=== PATIENT | male | born 1965 | race Caucasian/White ===

== ENCOUNTER 2020-12-30 10:54 | Inpatient (IN) | payer OTHER, SELFPAY ==
[2020-12-30] VITALS (8 sets, daily range): BP systolic 121–148; BP diastolic 68–85; PULSE 70–74; RESP 13–17; TEMP 36.1–37; O2SAT 97–100; BMI 18.1; BMI 39.7
--- NOTE | 2020-12-30 11:25 | EKG12_ITS ---
Test Reason : GEN ILL Blood Pressure : / mmHG Vent. Rate : 065 BPM Atrial Rate : 065 BPM P-R Int : 196 ms QRS Dur : 106 ms QT Int : 420 ms P-R-T Axes : 026 -16 118 degrees QTc Int : 436 ms Normal sinus rhythm Voltage criteria for left ventricular hypertrophy Cannot rule out Septal infarct , age undetermined Inferior infarct , age undetermined ST & T wave abnormality, consider lateral ischemia Abnormal ECG Confirmed by CHRISTIANA HERNANDEZ, JULIOCESAR ([id number]), associate entertainment editor DREW ORTIZ ([id number]) on 01/01/2021 9:21:47 AM Referred By: QUIRINO Confirmed By:SHANDRA VILLEDA MD
--- NOTE | 2020-12-30 11:26 | EX.ED.DYSGE1 ---
HPI History of Present Illness Chief Complaint: Fatigue Informant: patient Onset/Context/Timing Onset: Weeks (1) Context: Gradual Onset Timing: Continuous Quality: Tired, fatigued Location: All over Current Severity: Moderate Maximum Severity: Moderate Worsened by: Nothing Relieved by: Nothing Associated Symptoms Associated Symptoms: Sweaty, cough Narrative Narrative: Patient has had cold symptoms and fatigue for about 1 week. He occasionally brings up a little bit of phlegm but nothing major and no blood. No dyspnea. Not really improving. He went to work yesterday and he was sweaty for no good reason although he checked his temperature and did not have a fever. It went away. Today it happened again, and he was sweaty in urgent care without a fever. He had no chest discomfort, presyncopal symptoms, palpitations, or any other symptoms with it. He was referred to the ER. He has no major medical problems and takes no prescriptions. He had Covid in July, states that he was fairly symptomatic with it but did not need to be hospitalized and did eventually recover. He has not been vaccinated yet. PFSH PFSH no medical history Allergy/AdvReac Type Severity Reaction Status Date / Time No Known Allergies Allergy Verified 12/30/20 10:57 no surgical history Social History Smoking Status: Never smoker ROS ROS ED Constitutional Constitutional ED: Reports as per HPI, malaise and sweats; Denies chills, fever(s) or headache(s) Eyes Eyes: Denies change in vision, diplopia or discharge from eye(s) ENT ENT ED: Denies discharge from eye(s), ear discharge, ear pain, epistaxis, facial pain, headache(s), hoarseness, nasal congestion, nasal discharge, rhinorrhea or sore throat Cardiovascular Cardiovascular: Denies chest pain or palpitations Respiratory/Chest Respiratory/Chest: Reports as per HPI and cough; Denies dyspnea Gastrointestinal Gastrointestinal: Denies abdominal pain, diarrhea, nausea or vomiting Genitourinary Genitourinary ED: Reports other Details: Trouble starting a good stream of urine, chronic and not new ; Denies dysuria or hematuria Musculoskeletal Musculoskeletal: Denies back pain or neck pain Integumentary Denies abscess or rash Neurologic Neurologic: Denies headache(s), paresthesias or weakness Psychiatric Psychiatric: Denies anxiety or suicidal thoughts EXAM Physical Exam Const Vital Signs: 12/30/20 10:55 12/30/20 10:57 12/30/20 11:09 Temperature 98.1 F 98.1 F Temperature Source Oral Oral Pulse Rate 74 74 Respiratory Rate 13 13 Respiratory Effort Normal Non-Labored Respiratory Pattern Normal Blood Pressure 121/82 H 121/82 H Blood Pressure Mean 95 95 Pulse Ox 100 100 Oxygen Delivery Method Room Air Room Air Positive well nourished, well developed and obese Constitutional Narrative: Well-appearing. Conversive in full sentences. General Appearance ED: well developed and NAD Nutritional Appearance: obese HEENT Reports moist mucous membranes normocephalic and atraumatic Eyes PERRL and EOMs intact bilaterally Neck full ROM and supple Resp normal respiratory effort and clear to auscultation bilaterally Cardio regular rate, regular rhythm and no murmurs Rate: Negative for bradycardia or tachycardic GI non-tender and non-distended Auscultation: normoactive bowel sounds Palpation: soft Back/Spine no CVA tenderness General Back: other FROM Extremity normal to inspection and no calf tenderness General Extremety ED: Negative for edema, pulses abnormal or tenderness General Extremity: Negative for edema or pulses abnormal Neuro oriented x3, CN's II-XII intact bilaterally and no sensory deficits noted Sensorium / Orientation: awake and alert Motor Exam: strength 5/5 throughout Skin no rashes or lesions noted and no wounds MDM MDM MDM Narrative Medical decision making narrative: Patient has EKG changes without acute injury pattern, that may be related to his hyponatremia, or he had silent angina and has repolarization abnormalities related. These are different compared with his old EKG. His high-sensitivity troponin is negative. He has had no chest discomfort. My main concern is his hyponatremia which deserves admission for treatment and diagnostics/further evaluation since he is healthy. He clearly is symptomatic from this. He has had no seizure activity. Discussed with hospitalist for admission. Slow saline started. He is clinically and hemodynamically stable. Lab Data Attestation: I reviewed the patient's lab results. Labs: Laboratory Results - last 24 hr 12/30/20 12/30/20 11:08 11:08 WBC 7.6 RBC 4.69 Hgb 14.0 Hct 38.8 L MCV 82.7 MCH 29.9 MCHC 36.1 H RDW Std Deviation 37.0 RDW Coeff of Chrystal 12.1 Plt Count 221 MPV 8.6 Immature Gran % (Auto) 0.500 Neut % (Auto) 78.3 H Lymph % (Auto) 15.3 L [place] % (Auto) 5.7 Eos % (Auto) 0.1 Baso % (Auto) 0.1 Absolute Neuts (auto) 5.9 Absolute Lymphs (auto) 1.16 Nucleated RBC % 0 Sodium 118 L* Potassium 3.8 Chloride 84 L Carbon Dioxide 28.0 Anion Gap 6 BUN 11 Creatinine 0.75 Estim Creat Clear Calc 86.04 Est GFR (MDRD) Af Amer 139 Est GFR (MDRD) Non-Af 115 BUN/Creatinine Ratio 14.6 Glucose 135 H Calcium 8.2 L Troponin I High Sens 6.6 Radiography Chest X-Ray - ED: 1 View, Read by ED Physician and No Acute Disease Diagnostic Testing: Radiology Impression Chest X-Ray 12/30/20 11:45 IMPRESSION: Normal x-ray examination of the chest. Electronically Signed: Zeyad Christina MD at 12:06 EDT , Service support , EKG Initial EKG: Attestation: I personally reviewed and interpreted this EKG as follows: Interpretation: Sinus Rhythm, No Acute Injury Pattern, Inverted T-Waves (Laterally) and Non-Specific ST Changes (Anterior and inferior) Prior: Changed Discharge Plan Dx/Rx/DC Orders Clinical Impression: Acute hyponatremia, URI (upper respiratory infection) Disposition Disposition: Acute Care Hospital [facility]
[2020-12-30] MEDS: 0.9% Normal Saline 1,000 ML 1000 ML IV (11:32)
[2020-12-30 11:37] LABS: Absolute Lymphocyte Count 1.16 X10^3/uL (0.83-4.51); Absolute Neutrophil Count 5.9 X10^3/uL (2.0-7.7); Basophil# 0.01 X10^3/uL; Basophil% 0.1 % (0-1); Eosinophil# 0.01 X10^3/uL; Eosinophils% 0.1 % (0-5); Hematocrit 38.8 % (40-54); Lymphocyte # 1.16 X10^3/ul (0.83-4.51); Lymphocyte % 15.3 % (19-41); Mean Corp Hgb Conc 36.1 g/dL (32-36); Mean Corpuscular Hgb 29.9 pg (27.0-32.0); Mean Corpuscular Volume 82.7 fL (80-94); Mean Platelet Vol. 8.6 fl (6.2-12.0); Monocyte# 0.43 X10^3/uL; Monocyte% 5.7 % (0-10); NRBC Flagged by Analyzer 0 % (0-5); Neutrophil # 5.94 X10^3/uL (2.7-7.7); Neutrophil % 78.3 % (47-70); Platelet Count 221 K/mm3 (150-450); RBC Distribution Width CV 12.1 % (11.6-14.6); Red Blood Count 4.69 M/mm3 (4.6-6.2); White Blood Count 7.6 K/mm3 (4.4-11.0)
--- NOTE | 2020-12-30 11:45 | RAD_ITS ---
STUDY: X-RAY CHEST REASON FOR EXAM: Male, 55 years old. Cough TECHNIQUE: Single AP portable view of the chest. COMPARISON: None. FINDINGS: The lungs are clear and expanded. There is no demonstrated pleural abnormality. Normal size heart. Normal mediastinum and marina. Normal visualized pulmonary arteries. There is atherosclerotic tortuosity of the aortic arch and descending thoracic aorta. Normal visualized thoracic spine. Normal visualized ribs, clavicles, and shoulders. There is no demonstrated abnormality of the visualized soft tissue structures of the upper abdomen. RAD/Chest 1 View (Portable) IMPRESSION: Normal x-ray examination of the chest. Electronically Signed: Zeyad Christina MD at 12:06 EDT , Service support ,
--- NOTE | 2020-12-30 11:51 | ED.RN ---
lab called sodium 118. dr garcia
[2020-12-30 11:52] LABS: Anion Gap 6 (5-15); BUN 11 mg/dL (7-18); BUN/Creat Ratio 14.6 RATIO (10-20); Calcium,Total 8.2 mg/dL (8.5-10.1); Chloride 84 mmol/L (98-107); Creatinine, Serum 0.75 mg/dL (0.70-1.30); EST Glomerular Filtration Rate 115 mL/min (>60); Est Glom Filt Rate - Afr Amer 139 mL/min (>60); Estimated Creatinine Clearance 86.04 ml/min; Glucose 135 mg/dL (74-106); Potassium 3.8 mmol/L (3.5-5.1); Sodium Level 118 mmol/L (136-145); Troponin-I HS 6.6 pg/mL (3.0-78.5)
--- NOTE | 2020-12-30 12:51 | CM.ED ---
JOSE Note Referral Source: Case Find Referral Reason: No Primary Care Physican JOSE noted on tracker board that patient has no Primary Care Physican (PCP). Patient has [employer] [place] insurance and thus social services specialist went to the web site and printed off MMO providers in [facility] that are PCP's. SW also provided patient with list of [facility] ([facility]) providers . JOSE provided patient and his support person with handouts on PCP providers within his network. No other issues or concerns voiced. JOSE remains available if future needs arise. Plan: To be determined Kathrin DE LA PAZ
--- NOTE | 2020-12-30 13:02 | NURSING ---
108 anna obs hyponatremia
[2020-12-30 13:27] LABS: Bacteria 0 SEEN /hpf (None Seen); Squamous Epithelial Cells - UA 0 SEEN /hpf (0-5); White Blood Cells 0 SEEN /hpf (0-5)
[2020-12-30 13:29] LABS: Color, Urine Yellow (Yellow); Glucose, Dipstick Normal (Normal); Ketone-Dipstick 5 mg/dl (Negative); Leukocyte Esterase-Dipstick Negative /ul (Negative); Nitrite-Dipstick Negative (Negative); Occult Blood-Urine 50 /ul (Negative); Protein-Dipstick 30 mg/dl (Negative); Specific Gravity, Urine 1.015 (1.002-1.030); Urine Bilirubin Dipstick Negative (Negative); Urine Clarity Clear (Clear); Urine Urobilinogen Normal (Normal)
[2020-12-30] MEDS: 0.9% Normal Saline 1,000 ML 100 ML IV (13:32)
[2020-12-30 13:34] LABS: Mucous, Urine 2+ /hpf (<or=2+); Red Blood Cells-Urine 0-5 SEEN /hpf (0-5)
[2020-12-30 13:51] LABS: Cholesterol 205 mg/dL (200); High Density Lipoprotein 27 mg/dL; Thyroid Stim Hormone (TSH) 1.19 uIU/mL (0.358-3.74); Triglycerides 138 mg/dL; Uric Acid 3.2 mg/dL (3.5-7.2); Very Low Density Lipoprotein 28 mg/dL (5-40)
[2020-12-30 14:53] LABS: Osmolality, Serum 255 mOsm/KG (275-295)
[2020-12-30 15:06] LABS: Anion Gap 7 (5-15); BUN 10 mg/dL (7-18); BUN/Creat Ratio 15.3 RATIO (10-20); Chloride 84 mmol/L (98-107); Creatinine, Serum 0.65 mg/dL (0.70-1.30); EST Glomerular Filtration Rate 135 mL/min (>60); Est Glom Filt Rate - Afr Amer 163 mL/min (>60); Estimated Creatinine Clearance 125.69 ml/min; Glucose 112 mg/dL (74-106); Potassium 4.3 mmol/L (3.5-5.1); Sodium Level 118 mmol/L (136-145)
[2020-12-30] MEDS: Enoxaparin 40 MG/0.4 ML Syringe SC (15:22)
--- NOTE | 2020-12-30 15:29 | HP.PCM.HOS_ITS ---
HPI - General General Date of Admission: 12/30/20 HPI Narrative MARISA HYATT, is a 55 M who presented to the emergency department [facility] on 12/30/2020 with cold symptoms and fatigue that he has been suffering from for approximately 1 week at this time. He states that he has a cough but no shortness of breath. The cough is intermittently productive of small amounts of phlegm. He denies hemoptysis. He reports that he has had intermittent sweats and malaise but no fevers documented. He presented to the urgent care today because he had another sweaty episode that was again not associated with a fever. He denies any chest pain, syncope, nausea, vomiting, d iarrhea, palpitations, or body aches. He does report he had Covid in July and was fairly symptomatic but did not require hospitalization. He has not yet been vaccinated. His vital signs in the emergency department were stable. His EKG is noted to have some T wave inversion in multiple leads but nothing specific for acute ischemia. His troponin was negative. His CBC is unremarkable. His BMP shows marked hyponatremia with a sodium of 118 and a chloride of 84. His serum creatinine is normal. His glucose is 135. His chest x-ray is unremarkable. He will be admitted to PCU for hyponatremia and continued work-up with regards to this. PFSH Allergy/AdvReac Type Severity Reaction Status Date / Time No Known Allergies Allergy Verified 12/30/20 10:57 Family History (Updated 12/30/20 @ 15:[address] Delmy Jacobsen DO) Father CAD (coronary artery disease) Mother Diabetes Surgical History H/O vasectomy Social History Smoking Status: Never smoker ROS Review of Systems ROS Unobtainable: Denies due to encephalopathy, due to endotracheal tube, due to mental condition, due to mental status or other Constitutional Constitutional: Reports anorexia, chills, fatigue, malaise and weakness; Denies change in weight, fever(s) or night sweats Eyes Eyes: Denies blurry vision, change in eye color, change in vision, discharge from eye(s), double vision, erythema, eye pain, loss of vision or other ENT HEENT: Reports nasal congestion; Denies abnormal hearing, dysphagia, ear pain, epistaxis, headache(s), hearing loss, nasal discharge, post nasal drip, sinus pressure, sore throat or other Cardiovascular Cardiovascular: Denies chest pain, claudication, dyspnea on exertion, edema, lightheadedness, orthopnea, palpitations, paroxysmal nocturnal dyspnea, rapid heart rate, syncope or other Respiratory/Chest Respiratory/Chest: Reports cough and other Details: Intermittent phlegm produ ction ; Denies dyspnea, excessive phlegm production, hemoptysis, productive cough, shortness of breath at rest, shortness of breath with exertion or wheezing Genitourinary Genitourinary: Reports urinary frequency; Denies burning urination, difficulty urinating, dysuria, hematuria, nocturia, urinary hesitancy, urinary incontinence, urinary urgency or other Neurologic Neurologic: Denies abnormal gait, abnormal speech, confusion, disequilibrium, dizziness, focal weakness, headache(s), numbness, paresthesias, seizure-like activity, seizures, syncope, tingling, tremor(s) or other Psychiatric Psychiatric: Denies anxiety, depression, homicidal ideation, suicidal ideation or other Endocrine Endocrinology: Reports polydipsia and polyuria; Denies change in body appearance, cold intolerance, excessive sweating, heat intolerance or other Hematologic/Lymphatic Hematologic/Lymphatic: Denies anemia, easy bleeding, easy bruising, lymphadenopathy or other Allergic/Immunologic Allergic/Immunologic: Denies rhinitis, hives, eczemia, asthma or other Vital Signs Vital Signs Vital Signs: 12/30/20 10:55 12/30/20 10:57 12/30/20 11:09 Temperature 98.1 F 98.1 F Temperature Source Oral Oral Pulse Rate 74 74 Respiratory Rate 13 13 Respiratory Effort Normal Non-Labored Respiratory Pattern Normal Blood Pressure 121/82 H 121/82 H Blood Pressure [BP] Blood Pressure Mean 95 95 Blood Pressure Mean [BP] Blood Pressure Source [BP] Blood Pressure Position [BP] Blood Pressure Location [BP] Pulse Ox 100 100 Oxygen Delivery Method Room Air Room Air 12/30/20 13:36 12/30/20 14:45 Temperature 97.0 F L 98.5 F Temperature Source Temporal Oral Pulse Rate 74 73 Respiratory Rate 17 16 Respiratory Effort Respiratory Pattern Blood Pressure 148/85 H Blood Pressure [BP] 130/79 H Blood Pressure Mean 106 Blood Pressure Mean [BP] 96 Blood Pressure Source [BP] Monitor Blood Pressure Position [BP] Semi-Fowlers Blood Pressure Location [BP] Left Arm Pulse Ox 98 97 Oxygen Delivery Method Room Air Room Air Weight Weight: 118.6 kg Body Mass Index (BMI) 39.7 Physical Exam Const alert, oriented x3 and no apparent distress Constitutional Narrative: Obese white male sitting up in bed, at bedside, appears nontoxic and comfortable General Appearance: cooperative HEENT normocephalic, head/scalp atraumatic, hearing grossly normal bilaterally, moist oral mucous membranes and oropharynx normal HEENT Narrative: Mallampati 2-3, no thrush Mouth: oral and palatal mucosa normal Eyes PERRL, EOMs intact bilaterally and conjunctivae normal Neck no lymphadenopathy, supple and no JVD Neck Narrative: Trachea midline, thyroid within normal limits and no nodules noted Resp normal respiratory effort, no retractions, no use of accessory muscles and clear to auscultation bilaterally Auscultation: Negative for crackles, rales, rhonchi or wheezes Cardio regular rate, regular rhythm, S1 normal heart sound, S2 normal heart sound, no murmurs, no rub, no gallops, no clicks and no JVD GI normal to inspection, nondistended, normoactive bowel sounds, soft to palpation, non-tender and non-distended Extremity normal to inspection and no clubbing, cyanosis or edema Peripheral Pulses: Yes pulses 2+ throughout Neuro oriented x3, CN's II-XII intact bilaterally, moves all extremities and no focal motor deficits Neuro Narrative: Reflexes 2+ Sensorium / Orientation: awake, alert, oriented to person, oriented to place and oriented to time Speech: speech normal Motor Exam: strength 5/5 throughout Psych affect normal Results Lab / Micro Data Attestation: I reviewed the patient's lab results. Result Diagrams: 12/30/20 11:08 12/30/20 13:29 Labs: Laboratory Results - last 24 hr 12/30/20 11:08: WBC 7.6, RBC 4.69, Hgb 14.0, Hct 38.8 L, MCV 82.7, MCH 29.9, MCHC 36.1 H, RDW Std Deviation 37.0, RDW Coeff of Chrystal 12.1, Plt Count 221, MPV 8.6, Immature Gran % (Auto) 0.500, Neut % (Auto) 78.3 H, Lymph % (Auto) 15.3 L, [place] % (Auto) 5.7, Eos % (Auto) 0.1, Baso % (Auto) 0.1, Absolute Neuts (auto) 5.9, Absolute Lymphs (auto) 1.16, Nucleated RBC % 0 12/30/20 11:08: Sodium 118 L*, Potassium 3.8, Chloride 84 L, Carbon Dioxide 28.0, Anion Gap 6, BUN 11, Creatinine 0.75, Estim Creat Clear Calc 86.04, Est GFR (MDRD) Af Amer 139, Est GFR (MDRD) Non-Af 115, BUN/Creatinine Ratio 14.6, Glucose 135 H, Calcium 8.2 L, Troponin I High Sens 6.6 12/30/20 11:08: Uric Acid 3.2 L, Triglycerides 138, Cholesterol 205 H, LDL Cholesterol 150 H, VLDL Cholesterol 28, HDL Cholesterol 27 L, TSH 1.19 12/30/20 13:15: Urine Color Yellow, Urine Clarity Clear, Urine pH 8.0, Ur Specific [place] 1.015, Urine Protein 30 H, Urine Glucose (UA) Normal, Urine Ket ones 5 H, Urine Occult Blood 50 H, Urine Nitrite Negative, Urine Bilirubin Negative, Urine Urobilinogen Normal, Ur Leukocyte Esterase Negative, Urine RBC 0-5 SEEN, Urine WBC 0 SEEN, Ur Squamous Epith Cells 0 SEEN, Urine Bacteria 0 SEEN, Urine Mucus 2+ 12/30/20 13:29: Serum Osmolality 255 L 12/30/20 13:29: Cortisol 28.00 H 12/30/20 13:29: Sodium 118 L*, Potassium 4.3, Chloride 84 L, Carbon Dioxide 27.0, Anion Gap 7, BUN 10, Creatinine 0.65 L, Estim Creat Clear Calc 125.69, Est GFR (MDRD) Af Amer 163, Est GFR (MDRD) Non-Af 135, BUN/Creatinine Ratio 15.3, Glucose 112 H, Calcium 8.0 L Micro: Microbiology 12/30/20 11:30 Mucosa - Nasopharyngeal Influenza Types A,B Direct FA (MARCIE) - Final 12/30/20 11:30 Mucosa - Nose SARS-CoV-2 Antigen (Rapid) - Final Radiology Impression Chest X-Ray 12/30/20 11:45 IMPRESSION: Normal x-ray examination of the chest. Electronically Signed: Zeyad Christina MD at 12:06 EDT , Service support , Assessment & Plan Assessment/Plan (1) Acute hyponatremia: PLAN: Acute hyponatremia -Etiology unclear -Patient is on no home medications -Patient drinks alcohol but not excessively -Check TSH, cortisol, urine sodium and osmolality, serum osmolality, lipids -Until lab results come back we will hydrate with 100 cc/h discontinue if serum sodium stable -Serial sodium every 4 hours -If SIADH will consider chest CT -Chest x-ray is negative -Check a.m. liver function Non-specific EKG changes -EKG is non-specific -troponin is negative -repeat EKG in am -? if related to Na abnormalities -if remains abn--> Stress test Mild hyperglycemia -Family history of diabetes -Check hemoglobin A1c Mild hematuria -No gross blood on urinating -Would recommend repeat as an outpatient and follow-up if positive Cough/URI symptoms -Supportive care -Chest x-ray negative DVT prophylaxis -Lovenox CODE STATUS -Full code Charges/Coding Visit Charges Inpatient E&M: 71273 Init Hosp L2
[2020-12-30 16:05] LABS: Urine Sodium 114 mmol/L (Not Establ.)
--- NOTE | 2020-12-30 16:51 | CHAPLAIN ---
Type of Pastoral Visit _x__ Initial Visit ___ Follow-up Visit ___ On-call Visit ___ General Patient Visit ___ Spiritual Assessment ___ Family Conference ___ Bereavement ___ Rapid Response ___ Code Blue ___ Other (describe below) Pastoral Care Referral From _x__ Patient ___ Family ___ Nurse ___ Physician ___ Director Of Strategic Programs ___ Manager Fund ___ Other (describe below) Sacrament/Intervention _x__ Active listening ___ Anointing ___ Hinduism ___ Bereavement ___ Communion _x__ Valeri exploration ___ ___ Life review _x__ Prayer ___ Reconciliation ___ Sacrament of Sick _x__ Supportive presence ___ Wedding ___ Other (describe below) Pastoral Comments
[2020-12-30 16:59] LABS: Osmolality, Urine 612 mOsm/KG
[2020-12-30 19:50] LABS: Anion Gap 9 (5-15); BUN 12 mg/dL (7-18); BUN/Creat Ratio 13.3 RATIO (10-20); Calcium,Total 7.9 mg/dL (8.5-10.1); Chloride 87 mmol/L (98-107); EST Glomerular Filtration Rate 93 mL/min (>60); Est Glom Filt Rate - Afr Amer 113 mL/min (>60); Estimated Creatinine Clearance 90.78 ml/min; Glucose 105 mg/dL (74-106); Potassium 3.5 mmol/L (3.5-5.1); Sodium Level 121 mmol/L (136-145)
[2020-12-30] MEDS: Acetaminophen 325 MG Tablet 650 MG PO (20:43)
[2020-12-30 23:10] LABS: Anion Gap 8 (5-15); BUN 13 mg/dL (7-18); BUN/Creat Ratio 16.8 RATIO (10-20); Calcium,Total 7.9 mg/dL (8.5-10.1); Chloride 88 mmol/L (98-107); Creatinine, Serum 0.78 mg/dL (0.70-1.30); EST Glomerular Filtration Rate 111 mL/min (>60); Est Glom Filt Rate - Afr Amer 134 mL/min (>60); Estimated Creatinine Clearance 104.74 ml/min; Glucose 100 mg/dL (74-106); Potassium 3.6 mmol/L (3.5-5.1); Sodium Level 121 mmol/L (136-145)
[2020-12-31] VITALS (9 sets, daily range): BP systolic 132–140; BP diastolic 76–82; PULSE 65–85; RESP 16–18; TEMP 36.6–37.1; O2SAT 96–99
[2020-12-31 02:22] LABS: Absolute Lymphocyte Count 1.79 X10^3/uL (0.83-4.51); Absolute Neutrophil Count 3.5 X10^3/uL (2.0-7.7); Basophil# 0.01 X10^3/uL; Basophil% 0.2 % (0-1); Eosinophil# 0.07 X10^3/uL; Eosinophils% 1.2 % (0-5); Hematocrit 36.2 % (40-54); Lymphocyte # 1.79 X10^3/ul (0.83-4.51); Lymphocyte % 29.8 % (19-41); Mean Corp Hgb Conc 35.9 g/dL (32-36); Mean Corpuscular Hgb 30.2 pg (27.0-32.0); Mean Platelet Vol. 8.5 fl (6.2-12.0); Monocyte# 0.64 X10^3/uL; Monocyte% 10.7 % (0-10); NRBC Flagged by Analyzer 0 % (0-5); Neutrophil # 3.47 X10^3/uL (2.7-7.7); Neutrophil % 57.8 % (47-70); Platelet Count 184 K/mm3 (150-450); RBC Distribution Width CV 12.3 % (11.6-14.6); RBC Distribution Width SD 37.7 fl (35.1-43.9); Red Blood Count 4.31 M/mm3 (4.6-6.2)
[2020-12-31 02:38] LABS: Anion Gap 8 (5-15); BUN 12 mg/dL (7-18); BUN/Creat Ratio 16.5 RATIO (10-20); Calcium,Total 7.9 mg/dL (8.5-10.1); Chloride 89 mmol/L (98-107); Creatinine, Serum 0.73 mg/dL (0.70-1.30); EST Glomerular Filtration Rate 119 mL/min (>60); Est Glom Filt Rate - Afr Amer 144 mL/min (>60); Estimated Creatinine Clearance 111.92 ml/min; Glucose 102 mg/dL (74-106); Potassium 3.5 mmol/L (3.5-5.1); Sodium Level 123 mmol/L (136-145)
[2020-12-31 03:07] LABS: Phosphorus 2.7 mg/dL (2.5-4.9)
[2020-12-31] MEDS: 0.9% Saline Lock 10 ML Syringe IV ×2 (03:12→08:41)
[2020-12-31] MEDS: 0.9% Normal Saline 1,000 ML 125 ML IV (03:12)
--- NOTE | 2020-12-31 06:00 | EKG12_ITS ---
Test Reason : AM EKG Blood Pressure : / mmHG Vent. Rate : 065 BPM Atrial Rate : 065 BPM P-R Int : 190 ms QRS Dur : 112 ms QT Int : 424 ms P-R-T Axes : 045 -15 119 degrees QTc Int : 440 ms Normal sinus rhythm Voltage criteria for left ventricular hypertrophy Inferior infarct , age undetermined Abnormal ECG When compared with ECG of 30-DEC-2020 11:33, MANUAL COMPARISON REQUIRED, DATA IS UNCONFIRMED Confirmed by CHRISTIANA HERNANDEZ, JULIOCESAR ([id number]), news editor DREW ORTIZ ([id number]) on 01/01/2021 9:29:09 AM Referred By: DR MCNEILL Confirmed By:SHANDRA VILLEDA MD
--- NOTE | 2020-12-31 07:18 | CT_ITS ---
STUDY: CT CHEST WITHOUT CONTRAST REASON FOR EXAM: Male, 55 years old. [facility] RADIATION DOSAGE (If Supplied By Facility): CTDIvol = ( 20.08 ) mGy, DLP = ( 747.64 ) mGycm TECHNIQUE: Transaxial imaging was performed without the administration of intravenous contrast material. Multiplanar coronal and sagittal images were reformatted. Individualized dose optimization techniques were used for this CT. COMPARISON: None. FINDINGS: The lungs are normal. There is no demonstrated pleural abnormality. There are calcifications of the coronary arteries. There are multiple small lymph nodes within the mediastinum, which are normal in size and morphology most compatible with reactive lymph hyperplasia. Calcified left hilar lymph nodes. Normal unenhanced pulmonary arteries. Normal aorta arch and descending thoracic aorta. Normal osseous structures. There is a 2.4 cm x 1.9 cm cyst in the medial aspect of the right lobe of the liver. Calcified splenic granulomas. Small hiatal hernia. CT/Chest without Contrast IMPRESSION: No acute abnormality is seen. Electronically Signed: Zeyad Christina MD at 8:09 EDT , Service support ,
[2020-12-31 08:27] LABS: Anion Gap 6 (5-15); BUN 10 mg/dL (7-18); BUN/Creat Ratio 14.4 RATIO (10-20); Calcium,Total 7.9 mg/dL (8.5-10.1); Chloride 90 mmol/L (98-107); Creatinine, Serum 0.69 mg/dL (0.70-1.30); EST Glomerular Filtration Rate 126 mL/min (>60); Est Glom Filt Rate - Afr Amer 152 mL/min (>60); Estimated Creatinine Clearance 118.41 ml/min; Glucose 109 mg/dL (74-106); Potassium 3.8 mmol/L (3.5-5.1); Sodium Level 121 mmol/L (136-145)
[2020-12-31] MEDS: Enoxaparin 40 MG/0.4 ML Syringe SC (08:40)
[2020-12-31 11:34] LABS: Anion Gap 7 (5-15); BUN 11 mg/dL (7-18); BUN/Creat Ratio 16.5 RATIO (10-20); Calcium,Total 7.7 mg/dL (8.5-10.1); Chloride 90 mmol/L (98-107); Creatinine, Serum 0.67 mg/dL (0.70-1.30); EST Glomerular Filtration Rate 131 mL/min (>60); Est Glom Filt Rate - Afr Amer 159 mL/min (>60); Estimated Creatinine Clearance 121.94 ml/min; Glucose 101 mg/dL (74-106); Potassium 3.9 mmol/L (3.5-5.1); Sodium Level 121 mmol/L (136-145)
--- NOTE | 2020-12-31 12:39 | PCM.CONS.R ---
Assessment & Plan Assessment/Plan (1) Hyponatremia: PLAN: The patient presented with serum sodium of 118 mmol/L. Serum sodium has remained low at 121 mmol/L. There is no worrisome symptoms such as headache, nausea or ataxia. The patient is not confused. Therefore, 3% saline is not needed at this point. Urine sodium is greater than 30, and urine osmolality is greater than 100. TSH and cortisol level are within normal limits. Serum uric acid level is low. The patient appears to be euvolemic on exam. The patient has not been on any medication that normally is associated with hyponatremia such as SSRI or thiazide diuretic. 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 His urine osmolality is quite high at 612 mOsm/kg. Therefore, improvement of serum sodium may have been slowed down by the use of normal saline in the setting of poor oral solute intake since osmolality of normal saline is half of what is urine osmolality is. I agree with stopping normal saline. Continue water restriction at 1.2 L/day. Encourage increased solute intake particularly protein. I will check urine sodium and urine potassium again. If the some of urine sodium and potassium is greater than serum sodium, the patient may benefit from the addition of loop diuretic to help with water excretion. (2) Hypocalcemia: PLAN: The patient is asymptomatic from hypocalcemia. There is no hyperreflexia or myoclonus. So, there is no urgency to replace calcium deficit. I would recommend checking phosphorus level and albumin. HPI Consult Data Date of Consult: 12/31/20 HPI Narrative HPI Narrative: MARISA HYATT, is a 55-year-old man who has no significant past medical history although he does not follow with a physician regularly. The patient presented to the hospital on 12/30/2020 with a 6-day history of fatigue, nonproductive cough, and listlessness. The patient woke up on 12/30/2020 with nonspecific complaint of not feeling right. The patient also had blurry vision which has since resolved. The patient was initially seen at urgent care center, but was then transferred to [facility] emergency department. During the work-up in the emergency department, the patient was found to have serum sodium of 118 mmol/L. Unfortunately, there is no prior serum sodium for comparison. The patient denies headache, nausea, vomiting, ataxia, or falling prior to admission to the hospital. The patient also denies chronic use of NSAIDs. The patient did take pseudoephedrine starting around 5 days prior to admission. He was not on any other medications. The patient tells me that his appetite is not as good as usual. There was no diarrhea. 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 The patient does not work outside in a high temperature environment. PFSH Allergy/AdvReac Type Severity Reaction Status Date / Time No Known Allergies Allergy Verified 12/30/20 10:57 Family History (Updated 12/30/20 @ 15:[address] Delmy Jacobsen DO) Father CAD (coronary artery disease) Mother Diabetes Surgical History H/O vasectomy Social History Smoking Status: Never smoker ROS Constitutional Constitutional: Reports fatigue, malaise and poor appetite; Denies excessive sweating, frequent falls or headache(s) Eyes Eyes: Reports systems reviewed and no addt'l complaints, except as documented ENT HEENT: Reports systems reviewed and no addt'l complaints, except as documented Cardiovascular Cardiovascular: Denies chest pain, dizziness, dyspnea, edema, racing heartbeat or syncope Respiratory/Chest Respiratory/Chest: Reports as per HPI, cough and productive cough; Denies dyspnea, hemoptysis or hoarseness Gastrointestinal Gastrointestinal: Reports systems reviewed and no addt'l complaints, except as documented Genitourinary Genitourinary: Reports systems reviewed and no addt'l complaints, except as documented Musculoskeletal Musculoskeletal: Reports systems reviewed and no addt'l complaints, except as documented Integumentary Integumentary: Reports systems reviewed and no addt'l complaints, except as documented Neurologic Neurologic: Denies abnormal gait, behavior changes, confusion, frequent falls or headache(s) Psychiatric Psychiatric: Reports systems reviewed and no addt'l complaints, except as documented Hematologic/Lymphatic Hematologic/Lymphatic: Reports systems reviewed and no addt'l complaints, except as documented Allergic/Immunologic Allergic/Immunologic: Reports systems reviewed and no addt'l complaints, except as documented Physical Exam Narrative General: Alert and oriented x3, no apparent distress. HEENT: Normocephalic, atraumatic. Mucous membrane moist without erythema. Hearing is intact. PERRLA, EOMI. Neck: Supple, no JVD. Heart: Normal S1, S2; no rubs, murmurs or gallops. Lungs: Clear to auscultation bilaterally. Abdomen: Normal bowel sounds, abdomen is soft, nontender to palpation. No guarding or rebound. Extremity: No clubbing, cyanosis or edema. Neurologic: No focal neurologic deficit. Cranial nerves II through XII are grossly intact. Skin: No rash. Skin is warm and dry. Psychiatric: Normal affect. Lab / Micro Data Result Diagrams: 12/31/20 02:05 12/31/20 11:14 Labs: Laboratory Results - last 24 hr 12/30/20 11:08: Uric Acid 3.2 L, Triglycerides 138, Cholesterol 205 H, LDL Cholesterol 150 H, VLDL Cholesterol 28, HDL Cholesterol 27 L, TSH 1.19 12/30/20 13:15: Urine Color Yellow, Urine Clarity Clear, Urine pH 8.0, Ur Specific [place] 1.015, Urine Protein 30 H, Urine Glucose (UA) Normal, Urine Ketones 5 H, Urine Occult Blood 50 H, Urine Nitrite Negative, Urine Bilirubin Negative, Urine Urobilinogen Normal, Ur Leukocyte Esterase Negative, Urine RBC 0-5 SEEN, Urine WBC 0 SEEN, Ur Squamous Epith Cells 0 SEEN, Urine Bacteria 0 SEEN, Urine Mucus 2+ 12/30/20 13:15: Urine Osmolality 612, Ur Random Sodium 114 12/30/20 13:29: Serum Osmolality 255 L 12/30/20 13:29: Cortisol 28.00 H 12/30/20 13:29: Sodium 118 L*, Potassium 4.3, Chloride 84 L, Carbon Dioxide 27.0, Anion Gap 7, BUN 10, Creatinine 0.65 L, Estim Creat Clear Calc 125.69, Est GFR (MDRD) Af Amer 163, Est GFR (MDRD) Non-Af 135, BUN/Creatinine Ratio 15.3, Glucose 112 H, Calcium 8.0 L 12/30/20 19:24: Sodium 121 L, Potassium 3.5, Chloride 87 L, Carbon Dioxide 25.0, Anion Gap 9, BUN 12, Creatinine 0.90, Estim Creat Clear Calc 90.78, Est GFR (MDRD) Af Amer 113, Est GFR (MDRD) Non-Af 93, BUN/Creatinine Ratio 13.3, Glucose 105, Calcium 7.9 L 12/30/20 22:47: Sodium 121 L, Potassium 3.6, Chloride 88 L, Carbon Dioxide 25.0, Anion Gap 8, BUN 13, Creatinine 0.78, Estim Creat Clear Calc 104.74, Est GFR (MDRD) Af Amer 134, Est GFR (MDRD) Non-Af 111, BUN/Creatinine Ratio 16.8, Glucose 100, Calcium 7.9 L 12/31/20 02:05: WBC 6.0, RBC 4.31 L, Hgb 13.0, Hct 36.2 L, MCV 84.0, MCH 30.2, MCHC 35.9, RDW Std Deviation 37.7, RDW Coeff of Chrystal 12.3, Plt Count 184, MPV 8.5, Immature Gran % (Auto) 0.300, Neut % (Auto) 57.8, Lymph % (Auto) 29.8, [place] % (Auto) 10.7 H, Eos % (Auto) 1.2, Baso % (Auto) 0.2, Absolute Neuts (auto) 3.5, Absolute Lymphs (auto) 1.79, Nucleated RBC % 0 12/31/20 02:05: Phosphorus 2.7, Magnesium 2.0 12/31/20 02:05: Sodium 123 L, Potassium 3.5, Chloride 89 L, Carbon Dioxide 26.0, Anion Gap 8, BUN 12, Creatinine 0.73, Estim Creat Clear Calc 111.92, Est GFR (MDRD) Af Amer 144, Est GFR (MDRD) Non-Af 119, BUN/Creatinine Ratio 16.5, Glucose 102, Calcium 7.9 L 12/31/20 07:56: Sodium 121 L, Potassium 3.8, Chloride 90 L, Carbon Dioxide 25.0, Anion Gap 6, BUN 10, Creatinine 0.69 L, Estim Creat Clear Calc 118.41, Est GFR (MDRD) Af Amer 152, Est GFR (MDRD) Non-Af 126, BUN/Creatinine Ratio 14.4, Glucose 109 H, Calcium 7.9 L 12/31/20 11:14: Sodium 121 L, Potassium 3.9, Chloride 90 L, Carbon Dioxide 24.0, Anion Gap 7, BUN 11, Creatinine 0.67 L, Estim Creat Clear Calc 121.94, Est GFR (MDRD) Af Amer 159, Est GFR (MDRD) Non-Af 131, BUN/Creatinine Ratio 16.5, Glucose 101, Calcium 7.7 L Micro: Microbiology 12/30/20 11:30 Mucosa - Nasopharyngeal Influenza Types A,B Direct FA (MARCIE) - Final 12/30/20 11:30 Mucosa - Nose SARS-CoV-2 Antigen (Rapid) - Final Radiology Impression Chest CT 12/31/20 07:18 IMPRESSION: No acute abnormality is seen. Electronically Signed: Zeyad Christina MD at 8:09 EDT , Service support ,
[2020-12-31 13:28] LABS: Albumin, Serum 3.6 g/dL (3.2-5.0)
--- NOTE | 2020-12-31 13:45 | MRI_ITS ---
HISTORY: SIADH r/o Tumor. TECHNIQUE: Multiplanar and multisequence MR images of the brain were obtained with small field of view sequences of the pituitary gland before and after the administration of IV contrast. IV Contrast dosage and agent: 23 cc Dotarem. # of images incl. paperwork: 342. COMPARISON: None FINDINGS: PITUITARY GLAND, STALK, SUPRASELLAR CISTERN AND CAVERNOUS SINUS: Partially empty sella configuration with a 2 mm high pituitary gland. Normal enhancement of the pituitary gland without evidence for pituitary mass. Pituitary stalk midline and unremarkable. Suprasellar cistern and cavernous sinus within normal limits. OPTIC CHIASM, OPTIC NERVES AND HYPOTHALAMIC STRUCTURES: Unremarkable. ORBITS: Prominence of the CSF along the bilateral optic nerve sheaths. Globes, extraocular muscles, optic nerves and retrobulbar fat symmetric in appearance. BRAIN PARENCHYMA: No significant signal abnormality or enhancing mass. No abnormal focus of restricted diffusion. No acute intracranial hemorrhage. CSF SPACES: Cerebral ventricles, cortical sulci, and other extra-axial CSF spaces within normal limits in size for age. No midline shift or other mass effect. No extra-axial fluid collection. VASCULAR SYSTEM: Major intracranial flow voids preserved. PARANASAL SINUSES/MASTOID AIR CELLS: Clear. OTHER: Multiple scalp nodules. MRI/Brain W/WO Contrast IMPRESSION: Partially empty sella configuration with prominence of the CSF in the optic nerve sheaths, raising the possibility of idiopathic intracranial hypertension in the appropriate clinical setting. No evidence for pituitary or suprasellar mass. No evidence for significant signal abnormality in the brain, enhancing intracranial mass, or acute infarct. at 1649 Reported and signed by: Mahi Patel MD Electronically Signed: Mahi Patel MD at 16:48 EDT Tel , Service support ,
--- NOTE | 2020-12-31 14:09 | PCM.PN.HOSP ---
Subjective Subjective Patient states that he is feeling better today overall. He is still not at baseline. Objective Data Objective Data Vital Signs: Vital Signs Temp Pulse Resp BP Pulse Ox 98.5 F 85 18 132/76 H 96 12/31/20 13:39 12/31/20 13:39 12/31/20 13:39 12/31/20 13:39 12/31/20 13:39 Oxygen Delivery Method Room Air Weight: 118.6 kg Body Mass Index (BMI) 39.7 Intake & Output: Intake and Output for Last 24 Hours 12/29/20 12/30/20 12/31/20 23:59 23:59 23:59 Intake Total 1999 1352.5 / 1352.5 Output Total 3575 / 3575 Balance 1999 1445 -2222.5 / -2222.5 Lab / Micro Data Result Diagrams: 12/31/20 02:05 12/31/20 11:14 Labs: Laboratory Results - last 24 hr 12/30/20 13:15: Urine Osmolality 612, Ur Random Sodium 114 12/30/20 13:29: Serum Osmolality 255 L 12/30/20 13:29: Cortisol 28.00 H 12/30/20 13:29: Sodium 118 L*, Potassium 4.3, Chloride 84 L, Carbon Dioxide 27.0, Anion Gap 7, BUN 10, Creatinine 0.65 L, Estim Creat Clear Calc 125.69, Est GFR (MDRD) Af Amer 163, Est GFR (MDRD) Non-Af 135, BUN/Creatinine Ratio 15.3, Glucose 112 H, Calcium 8.0 L 12/30/20 19:24: Sodium 121 L, Potassium 3.5, Chloride 87 L, Carbon Dioxide 25.0, Anion Gap 9, BUN 12, Creatinine 0.90, Estim Creat Clear Calc 90.78, Est GFR (MDRD) Af Amer 113, Est GFR (MDRD) Non-Af 93, BUN/Creatinine Ratio 13.3, Glucose 105, Calcium 7.9 L 12/30/20 22:47: Sodium 121 L, Potassium 3.6, Chloride 88 L, Carbon Dioxide 25.0, Anion Gap 8, BUN 13, Creatinine 0.78, Estim Creat Clear Calc 104.74, Est GFR (MDRD) Af Amer 134, Est GFR (MDRD) Non-Af 111, BUN/Creatinine Ratio 16.8, Glucose 100, Calcium 7.9 L 12/31/20 02:05: WBC 6.0, RBC 4.31 L, Hgb 13.0, Hct 36.2 L, MCV 84.0, MCH 30.2, MCHC 35.9, RDW Std Deviation 37.7, RDW Coeff of Chrystal 12.3, Plt Count 184, MPV 8.5, Immature Gran % (Auto) 0.300, Neut % (Auto) 57.8, Lymph % (Auto) 29.8, [place] % (Auto) 10.7 H, Eos % (Auto) 1.2, Baso % (Auto) 0.2, Absolute Neuts (auto) 3.5, Absolute Lymphs (auto) 1.79, Nucleated RBC % 0 12/31/20 02:05: Phosphorus 2.7, Magnesium 2.0 12/31/20 02:05: Sodium 123 L, Potassium 3.5, Chloride 89 L, Carbon Dioxide 26.0, Anion Gap 8, BUN 12, Creatinine 0.73, Estim Creat Clear Calc 111.92, Est GFR (MDRD) Af Amer 144, Est GFR (MDRD) Non-Af 119, BUN/Creatinine Ratio 16.5, Glucose 102, Calcium 7.9 L 12/31/20 07:56: Sodium 121 L, Potassium 3.8, Chloride 90 L, Carbon Dioxide 25.0, Anion Gap 6, BUN 10, Creatinine 0.69 L, Estim Creat Clear Calc 118.41, Est GFR (MDRD) Af Amer 152, Est GFR (MDRD) Non-Af 126, BUN/Creatinine Ratio 14.4, Glucose 109 H, Calcium 7.9 L 12/31/20 11:14: Sodium 121 L, Potassium 3.9, Chloride 90 L, Carbon Dioxide 24.0, Anion Gap 7, BUN 11, Creatinine 0.67 L, Estim Creat Clear Calc 121.94, Est GFR (MDRD) Af Amer 159, Est GFR (MDRD) Non-Af 131, BUN/Creatinine Ratio 16.5, Glucose 101, Calcium 7.7 L 12/31/20 11:14: Albumin 3.6 Micro: Microbiology 12/30/20 11:30 Mucosa - Nasopharyngeal Influenza Types A,B Direct FA (MARCIE) - Final 12/30/20 11:30 Mucosa - Nose SARS-CoV-2 Antigen (Rapid) - Final Radiography Diagnostic Testing: Radiology Impression Chest CT 12/31/20 07:18 IMPRESSION: No acute abnormality is seen. Electronically Signed: Zeyad Christina MD at 8:09 EDT , Service support , Physical Exam Const alert, oriented x3 and no apparent distress Constitutional Narrative: Obese white male standing up in his room next to his bedside appears well, no distress Exam Limitations: no limitations HEENT head/scalp atraumatic and moist oral mucous membranes HEENT Narrative: Mallampati 3 Head and Scalp: normocephalic Mouth: oral and palatal mucosa normal Eyes PERRL and EOMs intact bilaterally Neck supple Neck Narrative: Trachea midline, short thick neck Resp normal respiratory effort, no retractions, no use of accessory muscles and clear to auscultation bilaterally Auscultation: Negative for crackles, rales, rhonchi or wheezes Cardio regular rate, regular rhythm, S1 normal heart sound, S2 normal heart sound, no murmurs, no rub, no gallops, no clicks and no JVD GI normal to inspection, nondistended, normoactive bowel sounds, soft to palpation, non-tender and non-distended Extremity normal to inspection and no clubbing, cyanosis or edema Peripheral Pulses: Yes pulses 2+ throughout Skin no rashes or lesions noted, no wounds, skin turgor normal, no jaundice, no petechiae and no mottling Neuro oriented x3, CN's II-XII intact bilaterally, moves all extremities, no focal motor deficits and no sensory deficits noted Sensorium / Orientation: awake, alert, oriented to person, oriented to place and oriented to time Motor Exam: strength 5/5 throughout Psych affect normal Assessment & Plan Assessment/Plan (1) SIADH (syndrome of inappropriate ADH production): (2) Abnormal EKG: (3) Hyponatremia: PLAN: Acute hyponatremia secondary to SIADH -Urine studies are consistent with syndrome of inappropriate antidiuretic hormone -Uric acid is low -TSH is within normal limits -Cortisol is as expected -Markedly elevated urine osmolality/sodium with serum hypoosmolality -CT chest negative -Continue fluid restriction -IV fluids initiated overnight--> discontinue -Continue to trend sodiums -Check MRI of brain -Nephrology consulted--> patient will need outpatient follow-up Non-specific EKG changes -Patient remains with T wave inversion in the inferior and lateral leads -Check stress test in a.m. -Patient does not have his personal history or significant risk factors but does have a marked family history Mild hyperglycemia -Family history of diabetes -Check hemoglobin A1c Hyperlipidemia -Total cholesterol is 205, LDL is 150, HDL 27 - patient was initially reluctant to start any medication -We will rediscuss tomorrow starting a statin Mild hematuria -No gross blood on urinating -Would recommend repeat as an outpatient and follow-up if positive Constipation -MiraLAX twice daily x1 day Cough/URI symptoms -Supportive care -Chest x-ray negative, CT of chest unremarkable -Patient did have COVID-19 in July DVT prophylaxis -Lovenox CODE STATUS -Full code Charges/Coding Visit Charges Inpatient E&M: 03379 Subs Hosp L3
[2020-12-31 15:44] LABS: Anion Gap 9 (5-15); BUN 12 mg/dL (7-18); BUN/Creat Ratio 14.1 RATIO (10-20); Calcium,Total 8.2 mg/dL (8.5-10.1); Chloride 91 mmol/L (98-107); Creatinine, Serum 0.85 mg/dL (0.70-1.30); EST Glomerular Filtration Rate 99 mL/min (>60); Est Glom Filt Rate - Afr Amer 120 mL/min (>60); Estimated Creatinine Clearance 96.12 ml/min; Glucose 110 mg/dL (74-106); Potassium 3.6 mmol/L (3.5-5.1); Sodium Level 125 mmol/L (136-145)
[2020-12-31 16:10] LABS: Urine Sodium 33 mmol/L (Not Establ.)
[2020-12-31 17:06] LABS: Osmolality, Urine 362 mOsm/KG
--- NOTE | 2020-12-31 17:48 | NURSING ---
Dr Powers updated on the most recent blood sodium. Also gave him readings of urine osmolality and urine random and potassium.
[2020-12-31] MEDS: Polyethylene Glycol 3350 17 GM PACKET PO (18:29)
[2020-12-31 20:19] LABS: Anion Gap 8 (5-15); BUN 15 mg/dL (7-18); BUN/Creat Ratio 13.8 RATIO (10-20); Calcium,Total 8.5 mg/dL (8.5-10.1); Chloride 92 mmol/L (98-107); Creatinine, Serum 1.09 mg/dL (0.70-1.30); EST Glomerular Filtration Rate 75 mL/min (>60); Est Glom Filt Rate - Afr Amer 90 mL/min (>60); Estimated Creatinine Clearance 74.95 ml/min; Glucose 98 mg/dL (74-106); Potassium 4.1 mmol/L (3.5-5.1); Sodium Level 131 mmol/L (136-145)
[2020-12-31 23:45] LABS: Anion Gap 4 (5-15); BUN 14 mg/dL (7-18); BUN/Creat Ratio 14.9 RATIO (10-20); Calcium,Total 8.3 mg/dL (8.5-10.1); Chloride 94 mmol/L (98-107); Creatinine, Serum 0.94 mg/dL (0.70-1.30); EST Glomerular Filtration Rate 89 mL/min (>60); Est Glom Filt Rate - Afr Amer 107 mL/min (>60); Estimated Creatinine Clearance 86.91 ml/min; Glucose 111 mg/dL (74-106); Potassium 4.4 mmol/L (3.5-5.1); Sodium Level 127 mmol/L (136-145)
[2021-01-01] VITALS (15 sets, daily range): BP systolic 111–164; BP diastolic 62–107; PULSE 64–98; RESP 15–18; TEMP 36.4–37.2; O2SAT 95–99
[2021-01-01 04:35] LABS: Anion Gap 6 (5-15); BUN 13 mg/dL (7-18); Calcium,Total 8.2 mg/dL (8.5-10.1); Chloride 93 mmol/L (98-107); Creatinine, Serum 0.81 mg/dL (0.70-1.30); EST Glomerular Filtration Rate 105 mL/min (>60); Est Glom Filt Rate - Afr Amer 127 mL/min (>60); Estimated Creatinine Clearance 100.86 ml/min; Glucose 120 mg/dL (74-106); Potassium 4.2 mmol/L (3.5-5.1); Sodium Level 128 mmol/L (136-145)
[2021-01-01 07:45] LABS: Hemoglobin A1c 5.4 % (3.8-5.6)
[2021-01-01 08:34] LABS: Anion Gap 5 (5-15); BUN 12 mg/dL (7-18); BUN/Creat Ratio 12.5 RATIO (10-20); Calcium,Total 8.3 mg/dL (8.5-10.1); Chloride 92 mmol/L (98-107); Creatinine, Serum 0.96 mg/dL (0.70-1.30); EST Glomerular Filtration Rate 87 mL/min (>60); Est Glom Filt Rate - Afr Amer 105 mL/min (>60); Glucose 115 mg/dL (74-106); Potassium 4.2 mmol/L (3.5-5.1); Sodium Level 127 mmol/L (136-145)
--- NOTE | 2021-01-01 11:07 | STRESSREP ---
Stress Test Report Date: 01/01/2021 Procedure: Exercise tolerance test/imaging study Indications: Abnormal EKG Consent: Per the patient Procedure: The patient exercised on a Leon protocol for 5 minutes and 33 seconds achieving a peak heart rate of 148 bpm (89% predicted maximal heart rate) with a peak blood pressure 220/98 mmHg and a peak MET capacity of 7 METs. The baseline ECG demonstrated normal sinus rhythm, possible prior anterior PA. The peak exercise ECG demonstrated no significant ischemic changes. EKG during recovery revealed no significant ischemic changes [There were no cardiac dysrhythmias pretest, during exercise, or recovery]. The functional capacity was considered decreased for age. There was [no complaint of chest discomfort during exercise or recovery]. The examination was discontinued secondary to dyspnea. Impression: 1. Technically adequate (percent predicted maximal heart rate greater than 85%) exercise tolerance test 2. Stress test is negative for exercise-induced EKG changes of ischemia 3. The test test is negative for exercise-induced chest pain 4. Functional capacity is decreased for age 5. Nuclear images pending Myocardial perfusion imaging study: Technique: The patient was injected with 14.8 mCi of technetium 99m Cardiolite and subsequently rest SPECT Cardiolite nuclear imaging was obtained in the horizontal long, vertical long, and short axis views. The patient exercised on a Leon protocol. Please see above for details. The patient was injected with 44.7 mCi of technetium 99m Cardiolite and subsequently stress SPECT Cardiolite nuclear imaging was obtained in the horizontal long, vertical long, and short axis views. A gated Cardiolite study at peak stress was obtained. Interpretation: Rest and stress SPECT Cardiolite nuclear imaging status post realignment, normalization, and attenuation correction, demonstrates absent radioisotope uptake in the apex on both the rest and stress images. There is also decrease in the radioisotope uptake in the septum on the rest images that is mildly worse on the stress images. These findings are suggestive of prior apical and septal myocardial infarction with mild julio césar-infarct ischemia. The gated Cardiolite study demonstrates hypokinesis of the apex, septum and anterior wall. The reported LVEF is 29%. Impression: 1. There is evidence of prior septal and apical myocardial infarction with possible mild julio césar-infarct ischemia involving the septum. 2. The gated Cardiolite study reports an LVEF of 29%. This note was generated with adRise software. It may contain incorrect words, spelling, and punctuation that were not noted in checking the note before signing.
--- NOTE | 2021-01-01 11:28 | PCM.PN.REN ---
Subjective Subjective Patient states that he is feeling better today overall. He is still not at baseline. Objective Data Objective Data Vital Signs: Vital Signs Temp Pulse Resp BP Pulse Ox 97.9 F 71 18 142/96 H 99 01/01/21 06:40 01/01/21 06:59 01/01/21 06:40 01/01/21 06:40 01/01/21 06:40 Oxygen Delivery Method Room Air Weight: 118.6 kg Body Mass Index (BMI) 39.7 Intake & Output: Intake and Output for Last 24 Hours 12/30/20 12/31/20 01/01/21 23:59 23:59 23:59 Intake Total 1999 1592.5 / 1592.5 Output Total 5525 / 5525 500 / 500 Balance 1999 / 1445 -3932.5 / -3932.5 -500 / -500 Lab / Micro Data Result Diagrams: 12/31/20 02:05 01/01/21 08:08 Labs: Laboratory Results - last 24 hr 12/31/20 11:14: Sodium 121 L, Potassium 3.9, Chloride 90 L, Carbon Dioxide 24.0, Anion Gap 7, BUN 11, Creatinine 0.67 L, Estim Creat Clear Calc 121.94, Est GFR (MDRD) Af Amer 159, Est GFR (MDRD) Non-Af 131, BUN/Creatinine Ratio 16.5, Glucose 101, Calcium 7.7 L 12/31/20 11:14: Albumin 3.6 12/31/20 14:50: Sodium 125 L, Potassium 3.6, Chloride 91 L, Carbon Dioxide 25.0, Anion Gap 9, BUN 12, Creatinine 0.85, Estim Creat Clear Calc 96.12, Est GFR (MDRD) Af Amer 120, Est GFR (MDRD) Non-Af 99, BUN/Creatinine Ratio 14.1, Glucose 110 H, Calcium 8.2 L 12/31/20 15:00: Urine Osmolality 362, Ur Random Sodium 33 12/31/20 15:00: Urine Potassium 18.0 12/31/20 19:30: Sodium 131 L, Potassium 4.1, Chloride 92 L, Carbon Dioxide 31.0, Anion Gap 8, BUN 15, Creatinine 1.09, Estim Creat Clear Calc 74.95, Est GFR (MDRD) Af Amer 90, Est GFR (MDRD) Non-Af 75, BUN/Creatinine Ratio 13.8, Glucose 98, Calcium 8.5 12/31/20 23:25: Sodium 127 L, Potassium 4.4, Chloride 94 L, Carbon Dioxide 29.0, Anion Gap 4 L, BUN 14, Creatinine 0.94, Estim Creat Clear Calc 86.91, Est GFR (MDRD) Af Amer 107, Est GFR (MDRD) Non-Af 89, BUN/Creatinine Ratio 14.9, Glucose 111 H, Calcium 8.3 L 01/01/21 03:45: Hemoglobin A1c 5.4 01/01/21 03:45: Sodium 128 L, Potassium 4.2, Chloride 93 L, Carbon Dioxide 29.0, Anion Gap 6, BUN 13, Creatinine 0.81, Estim Creat Clear Calc 100.86, Est GFR (MDRD) Af Amer 127, Est GFR (MDRD) Non-Af 105, BUN/Creatinine Ratio 16.0, Glucose 120 H, Calcium 8.2 L 01/01/21 08:08: Sodium 127 L, Potassium 4.2, Chloride 92 L, Carbon Dioxide 30.0, Anion Gap 5, BUN 12, Creatinine 0.96, Estim Creat Clear Calc 85.10, Est GFR (MDRD) Af Amer 105, Est GFR (MDRD) Non-Af 87, BUN/Creatinine Ratio 12.5, Glucose 115 H, Calcium 8.3 L Micro: Microbiology 12/30/20 11:30 Mucosa - Nasopharyngeal Influenza Types A,B Direct FA (MARCIE) - Final 12/30/20 11:30 Mucosa - Nose SARS-CoV-2 Antigen (Rapid) - Final Radiography Diagnostic Testing: Radiology Impression Brain MRI 12/31/20 13:45 IMPRESSION: Partially empty sella configuration with prominence of the CSF in the optic nerve sheaths, raising the possibility of idiopathic intracranial hypertension in the appropriate clinical setting. No evidence for pituitary or suprasellar mass. No evidence for significant signal abnormality in the brain, enhancing intracranial mass, or acute infarct. at 4606 Reported and signed by: Mahi Patel MD Electronically Signed: Mahi Patel MD at 16:48 EDT Tel , Service support , Physical Exam Narrative General: Alert and oriented x3, no apparent distress. HEENT: Normocephalic, atraumatic. Mucous membrane moist without erythema. Hearing is intact. PERRLA, EOMI. Neck: Supple, no JVD. Heart: Normal S1, S2; no rubs, murmurs or gallops. Lungs: Clear to auscultation bilaterally. Abdomen: Normal bowel sounds, abdomen is soft, nontender to palpation. No guarding or rebound. Extremity: No clubbing, cyanosis or edema. Neurologic: No focal neurologic deficit. Cranial nerves II through XII are grossly intact. Skin: No rash. Skin is warm and dry. Psychiatric: Normal affect. Assessment & Plan Assessment/Plan (1) Hyponatremia: PLAN: The patient presented with serum sodium of 118 mmol/L. Serum sodium has remained low at 121 mmol/L. There is no worrisome symptoms such as headache, nausea or ataxia. The patient is not confused. Therefore, 3% saline is not needed at this point. Urine sodium is greater than 30, and urine osmolality is greater than 100. TSH and cortisol level are within normal limits. Serum uric acid level is low. The patient appears to be euvolemic on exam. The patient has not been on any medication that normally is associated with hyponatremia such as SSRI or thiazide diuretic. 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 His urine osmolality is quite high at 612 mOsm/kg. Therefore, improvement of serum sodium may have been slowed down by the use of normal saline in the setting of poor oral solute intake since osmolality of normal saline is half of what is urine osmolality is. I agree with stopping normal saline. Na-127 Continue water restriction at 1.2 L/day. Encourage increased solute intake particularly protein. I will check urine sodium and urine potassium again. If the some of urine sodium and potassium is greater than serum sodium, the patient may benefit from the addition of loop diuretic to help with water excretion. (2) Hypocalcemia: PLAN: The patient is asymptomatic from hypocalcemia. There is no hyperreflexia or myoclonus. So, there is no urgency to replace calcium deficit. I would recommend checking phosphorus level and albumin.
[2021-01-01] MEDS: Aspirin 81 MG TAB.CHEW PO (11:49)
[2021-01-01] MEDS: Carvedilol 6.25 MG Tablet PO ×2 (11:49→21:09)
--- NOTE | 2021-01-01 12:31 | CON.PCM.CA_ITS ---
Assessment & Plan Assessment/Plan (1) Abnormal stress test: PLAN: Patient has an EF of 29%. I think it will be reasonable to proceed with coronary angiography to look for ischemic etiology. Risks and benefits discussed with the patient in detail. Patient wishes to proceed with coronary angiography as well. Patient is being started on Coreg to the LV dysfunction and hypertension. It will be reasonable to add an CARLO inhibitor as well. HPI Consult Data Date of Consult: 01/01/21 HPI Narrative Reason for Consultation: Abnormal stress test HPI Narrative: MARISA HYATT, is a 55 M who presents with fatigue, shortness of breath and cold-like symptoms. He was found to be hyponatremic and is being treated for that. His EKG showed possible old anterior MT with nonspecific ST-T changes and so a stress test was ordered. This revealed an EF of 29% with possible julio césar-infarct ischemia involving the septal region. There was also evidence of prior apical and septal myocardial infarction. Patient's father had coronary artery disease in his 50s. Patient also had Covid in July 2019. Review of systems: All systems reviewed. All else is negative except as in HPI. PFSH Allergy/AdvReac Type Severity Reaction Status Date / Time No Known Allergies Allergy Verified 12/30/20 10:57 Family History (Updated 12/30/20 @ 15:[address] Delmy Jacobsen DO) Father CAD (coronary artery disease) Mother Diabetes Surgical History H/O vasectomy Social History Smoking Status: Never smoker Physical Exam Const alert and oriented x3 Orientation / Consciousness: awake HEENT normocephalic Eyes no scleral icterus Chest inspection of chest normal Resp normal respiratory effort Cardio regular rate and regular rhythm Extremity no pedal edema Skin no rashes or lesions noted Neuro oriented x3 Psych mental status grossly normal Charges/Coding Visit Charges Inpatient E&M: 52022 Init Hosp L3 Objective Data Vital Signs: Vital Signs Temp Pulse Resp BP Pulse Ox 98.9 F 98 18 164/107 H 98 01/01/21 11:45 01/01/21 11:45 01/01/21 11:45 01/01/21 11:45 01/01/21 11:45 Oxygen Delivery Method Room Air Weight: 261 lb 7.492 oz Body Mass Index (BMI) 39.7 Intake & Output: Intake and Output for Last 24 Hours 12/30/20 12/31/20 01/01/21 23:59 23:59 23:59 Intake Total 1999 1592.5 / 1592.5 218 / 218 Output Total 5525 / 5525 500 / 500 Balance 1999 1445 -3932.5 / -3932.5 -282 / -282 Lab / Micro Data Result Diagrams: 12/31/20 02:05 01/01/21 08:08 Labs: Laboratory Results - last 24 hr 12/31/20 11:14: Albumin 3.6 12/31/20 14:50: Sodium 125 L, Potassium 3.6, Chloride 91 L, Carbon Dioxide 25.0, Anion Gap 9, BUN 12, Creatinine 0.85, Estim Creat Clear Calc 96.12, Est GFR (MDRD) Af Amer 120, Est GFR (MDRD) Non-Af 99, BUN/Creatinine Ratio 14.1, Glucose 110 H, Calcium 8.2 L 12/31/20 15:00: Urine Osmolality 362, Ur Random Sodium 33 12/31/20 15:00: Urine Potassium 18.0 12/31/20 19:30: Sodium 131 L, Potassium 4.1, Chloride 92 L, Carbon Dioxide 31.0, Anion Gap 8, BUN 15, Creatinine 1.09, Estim Creat Clear Calc 74.95, Est GFR ( MDRD) Af Amer 90, Est GFR (MDRD) Non-Af 75, BUN/Creatinine Ratio 13.8, Glucose 98, Calcium 8.5 12/31/20 23:25: Sodium 127 L, Potassium 4.4, Chloride 94 L, Carbon Dioxide 29.0, Anion Gap 4 L, BUN 14, Creatinine 0.94, Estim Creat Clear Calc 86.91, Est GFR (MDRD) Af Amer 107, Est GFR (MDRD) Non-Af 89, BUN/Creatinine Ratio 14.9, Glucose 111 H, Calcium 8.3 L 01/01/21 03:45: Hemoglobin A1c 5.4 01/01/21 03:45: Sodium 128 L, Potassium 4.2, Chloride 93 L, Carbon Dioxide 29.0, Anion Gap 6, BUN 13, Creatinine 0.81, Estim Creat Clear Calc 100.86, Est GFR (MDRD) Af Amer 127, Est GFR (MDRD) Non-Af 105, BUN/Creatinine Ratio 16.0, Glucose 120 H, Calcium 8.2 L 01/01/21 08:08: Sodium 127 L, Potassium 4.2, Chloride 92 L, Carbon Dioxide 30.0, Anion Gap 5, BUN 12, Creatinine 0.96, Estim Creat Clear Calc 85.10, Est GFR (MDRD) Af Amer 105, Est GFR (MDRD) Non-Af 87, BUN/Creatinine Ratio 12.5, Glucose 115 H, Calcium 8.3 L Cardiology Labs/Tests 12/31/20 14:50: Sodium 125 L, Potassium 3.6, Chloride 91 L, Carbon Dioxide 25.0, Anion Gap 9, BUN 12, Creatinine 0.85, Est GFR (MDRD) Af Amer 120, Est GFR (MDRD) Non-Af 99, BUN/Creatinine Ratio 14.1, Glucose 110 H, Calcium 8.2 L 12/31/20 19:30: Sodium 131 L, Potassium 4.1, Chloride 92 L, Carbon Dioxide 31.0, Anion Gap 8, BUN 15, Creatinine 1.09, Est GFR (MDRD) Af Amer 90, Est GFR (MDRD) Non-Af 75, BUN/Creatinine Ratio 13.8, Glucose 98, Calcium 8.5 12/31/20 23:25: Sodium 127 L, Potassium 4.4, Chloride 94 L, Carbon Dioxide 29.0, Anion Gap 4 L, BUN 14, Creatinine 0.94, Est GFR (MDRD) Af Amer 107, Est GFR (MDRD) Non-Af 89, BUN/Creatinine Ratio 14.9, Glucose 111 H, Calcium 8.3 L 01/01/21 03:45: Hemoglobin A1c 5.4 01/01/21 03:45: Sodium 128 L, Potassium 4.2, Chloride 93 L, Carbon Dioxide 29.0, Anion Gap 6, BUN 13, Creatinine 0.81, Est GFR (MDRD) Af Amer 127, Est GFR (MDRD) Non-Af 105, BUN/Creatinine Ratio 16.0, Glucose 120 H, Calcium 8.2 L 01/01/21 08:08: Sodium 127 L, Potassium 4.2, Chloride 92 L, Carbon Dioxide 30.0, Anion Gap 5, BUN 12, Creatinine 0.96, Est GFR (MDRD) Af Amer 105, Est GFR (MDRD) Non-Af 87, BUN/Creatinine Ratio 12.5, Glucose 115 H, Calcium 8.3 L Rhythm: EKG: ECHO: Stress Test: Cardiac Cath: PCI: CT Surgery: Holter monitor: EPS: PPM: CXR: Chest CT Scan: Radiography Diagnostic Testing: Radiology Impression Brain MRI 12/31/20 13:45 IMPRESSION: Partially empty sella configuration with prominence of the CSF in the optic nerve sheaths, raising the possibility of idiopathic intracranial hypertension in the appropriate clinical setting. No evidence for pituitary or suprasellar mass. No evidence for significant signal abnormality in the brain, enhancing intracranial mass, or acute infarct. at 1649 Reported and signed by: Mahi Patel MD Electronically Signed: Mahi Patel MD at 16:48 EDT Tel , Service support ,
--- NOTE | 2021-01-01 13:00 | NURSING ---
[facility] called stating they are ready to take pt and report given at this time.
--- NOTE | 2021-01-01 14:28 | CASEMGMT ---
According to the [employer] website, the following are in-network tertiary facilities: [facility], [place], [facility], [facility], [facility], [facility], [facility], [place], [facility], and . [facility]
--- NOTE | 2021-01-01 15:05 | PN.HOSP_ITS ---
Subjective Subjective Patient states he is feeling okay. We discussed his abnormal stress test and he has elected to undergo cardiac catheterization during this hospitalization. He agrees to initiation of a statin. We discussed the initiation of a beta-tash and aspirin as well at this time. Objective Data Objective Data Vital Signs: Vital Signs Temp Pulse Resp BP Pulse Ox 98.9 F 98 18 164/107 H 98 01/01/21 11:45 01/01/21 11:45 01/01/21 11:45 01/01/21 11:45 01/01/21 11:45 Oxygen Delivery Method Room Air Weight: 118.6 kg Body Mass Index (BMI) 39.7 Intake & Output: Intake and Output for Last 24 Hours 12/30/20 12/31/20 01/01/21 23:59 23:59 23:59 Intake Total 1999 1592.5 / 1592.5 218 / 218 Output Total 5525 / 5525 500 / 500 Balance 1999 / 1445 -3932.5 / -3932.5 -282 / -282 Lab / Micro Data Result Diagrams: 12/31/20 02:05 01/01/21 08:08 Labs: Laboratory Results - last 24 hr 12/31/20 14:50: Sodium 125 L, Potassium 3.6, Chloride 91 L, Carbon Dioxide 25.0, Anion Gap 9, BUN 12, Creatinine 0.85, Estim Creat Clear Calc 96.12, Est GFR (MDRD) Af Amer 120, Est GFR (MDRD) Non-Af 99, BUN/Creatinine Ratio 14.1, Glucose 110 H, Calcium 8.2 L 12/31/20 15:00: Urine Osmolality 362, Ur Random Sodium 33 12/31/20 15:00: Urine Potassium 18.0 12/31/20 19:30: Sodium 131 L, Potassium 4.1, Chloride 92 L, Carbon Dioxide 31.0, Anion Gap 8, BUN 15, Creatinine 1.09, Estim Creat Clear Calc 74.95, Est GFR (MDRD) Af Amer 90, Est GFR (MDRD) Non-Af 75, BUN/Creatinine Ratio 13.8, Glucose 98, Calcium 8.5 12/31/20 23:25: Sodium 127 L, Potassium 4.4, Chloride 94 L, Carbon Dioxide 29.0, Anion Gap 4 L, BUN 14, Creatinine 0.94, Estim Creat Clear Calc 86.91, Est GFR (MDRD) Af Amer 107, Est GFR (MDRD) Non-Af 89, BUN/Creatinine Ratio 14.9, Glucose 111 H, Calcium 8.3 L 01/01/21 03:45: Hemoglobin A1c 5.4 01/01/21 03:45: Sodium 128 L, Potassium 4.2, Chloride 93 L, Carbon Dioxide 29.0, Anion Gap 6, BUN 13, Creatinine 0.81, Estim Creat Clear Calc 100.86, Est GFR (MDRD) Af Amer 127, Est GFR (MDRD) Non-Af 105, BUN/Creatinine Ratio 16.0, Glucose 120 H, Calcium 8.2 L 01/01/21 08:08: Sodium 127 L, Potassium 4.2, Chloride 92 L, Carbon Dioxide 30.0, Anion Gap 5, BUN 12, Creatinine 0.96, Estim Creat Clear Calc 85.10, Est GFR (MDRD) Af Amer 105, Est GFR (MDRD) Non-Af 87, BUN/Creatinine Ratio 12.5, Glucose 115 H, Calcium 8.3 L Micro: Microbiology 12/30/20 11:30 Mucosa - Nasopharyngeal Influenza Types A,B Direct FA (MARCIE) - Final 12/30/20 11:30 Mucosa - Nose SARS-CoV-2 Antigen (Rapid) - Final Radiography Diagnostic Testing: Radiology Impression Brain MRI 12/31/20 13:45 IMPRESSION: Partially empty sella configuration with prominence of the CSF in the optic nerve sheaths, raising the possibility of idiopathic intracranial hypertension in the appropriate clinical setting. No evidence for pituitary or suprasellar mass. No evidence for significant signal abnormality in the brain, enhancing intracranial mass, or acute infarct. at 1649 Reported and signed by: Mahi Patel MD Electronically Signed: Mahi Patel MD at 16:48 EDT Tel , Service support , Physical Exam Const alert, oriented x3 and no apparent distress Constitutional Narrative: Obese white male standing up in his room next to his bedside appears well, no distress, Dr. Bethea with the is at bedside discussing cardiac catheterization risk and benefit General Appearance: cooperative Exam Limitations: no limitations HEENT normocephalic, head/scalp atraumatic, hearing grossly normal bilaterally, moist oral mucous membranes and oropharynx normal Head and Scalp: normocephalic Eyes PERRL, EOMs intact bilaterally and conjunctivae normal Neck no lymphadenopathy, supple and no JVD Neck Narrative: Trachea midline, short thick neck Resp normal respiratory effort, no retractions, no use of accessory muscles and clear to auscultation bilaterally Auscultation: Negative for crackles, rales, rhonchi or wheezes Cardio regular rate, regular rhythm, S1 normal heart sound, S2 normal heart sound, no murmurs, no rub, no gallops, no clicks and no JVD GI normal to inspection, nondistended, normoactive bowel sounds, soft to palpation, non-tender and non-distended Extremity normal to inspection and no clubbing, cyanosis or edema Peripheral Pulses: Yes pulses 2+ throughout Skin no rashes or lesions noted, no wounds, skin turgor normal, no jaundice, no petechiae and no mottling Neuro oriented x3, CN's II-XII intact bilaterally, moves all extremities and no focal motor deficits Neuro Narrative: Reflexes 2+ Sensorium / Orientation: awake, alert, oriented to person, oriented to place and oriented to time Speech: speech normal Psych affect normal Psych Narrative: Seems a bit anxious after our discussion about his stress test Assessment & Plan Assessment/Plan (1) SIADH (syndrome of inappropriate ADH production): (2) Abnormal EKG: (3) Hyponatremia: (4) Cardiomyopathy: PLAN: Acute hyponatremia secondary to SIADH -Urine studies are consistent with syndrome of inappropriate antidiuretic hormone -Uric acid is low -TSH is within normal limits -Cortisol is as expected -Markedly elevated urine osmolality/sodium with serum hypoosmolality -CT chest negative -Continue fluid restriction--> 1200 cc -MRI brain shows possible empty sella syndrome but no tumors or other abnormalities -Suspect this finding is incidental as his TSH and cortisol levels are within normal limits -Sodiums are ranging between 127 and 130 -Discontinue serial sodiums -BMP in a.m. -If sodium continues to ebb and flow consider Lasix with albumin 25 g x 1 -Marcial with nephrology and they will continue to follow and follow as an outpatient Cardiomyopathy/abnormal stress test -Patient had abnormal EKG with T wave inversions in the inferior and lateral leads--> stress test done as a result of this -Stress test found to abnormal with an EF of 29% and evidence of prior septal and apical myocardial infarction and possible mild julio césar-infarct ischemia of the septum -Discussed the case with cardiology and cardiology consult placed -[employer] today -start ASA 81 mg -Start Coreg 6.125 mg twice daily -Start CARLO inhibitor if able -If cardiomyopathy is not ischemia related question if related to COVID-19 viral infection from 08/08/2020 Mild hyperglycemia -Family history of diabetes -Hemoglobin A1c was 5.4 Hyperlipidemia -Total cholesterol is 205, LDL is 150, HDL 27 -Patient agreeable to starting statin--> Lipitor 80 mg initiated Mild hematuria -No gross blood on urinating -Would recommend repeat as an outpatient Constipation -MiraLAX twice daily x1 day Cough/URI symptoms -Supportive care -Chest x-ray negative, CT of chest unremarkable -Patient did have COVID-19 in July DVT prophylaxis -Lovenox CODE STATUS -Full code Charges/Coding Visit Charges Inpatient E&M: 31891 Subs Hosp L3
--- NOTE | 2021-01-01 18:10 | CL.D_ITS ---
Patient Name: MARISA HYATT Study Date: 01/01/2021 Performing: Faisal Bethea MD Ht: 68 inches 173 cm : 1965 Wt: 262.7 lbs 119 kg Age: 55 Gender: male BSA: 2.3 PROCEDURE(S) PERFORMED [id number]/LV CLINICAL PROFILE AND INDICATIONS Indications: Suspected CAD Heart Failure: None Stress/Imaging Date: 01/01/21ress Test with SPECT MPI: Positive High Risk CAD Presentations: Other: [place] CONCLUSIONS Multivessel CAD. Severe LV dysfunction. No significant or MR RECOMMENDATIONS Surgery consult for coronary revascularization DESCRIPTION OF PROCEDURE The patient arrived to the procedure lab. The risks and benefits of the procedure as well as a full d escription of our services here and current unavailability of surgical backup were fully explained to the patient and/or their significant other prior to the catheterization. The Timeout was completed, verifying the correct patient and procedure. The patient's procedural site was prepped and draped in the usual fashion. Local anesthetic was given subcutaneously to right radial region with Lidocaine 2% . Using a modified Seldinger technique, arterial access was obtained via the right radial artery, a 6 Fr sheath was inserted. Left Coronary Artery selective angiography was performed in multiple views u sing a 5 Fr. JL3.5 catheter. Right Coronary Artery selective angiography was then performed in multip le views using a 5 Fr. JR 4 catheter. Left Ventriculography was performed in PERRY projection using a 5 Fr. Pigtail catheter. LV to AO pullback pressures were then recorded.The arterial sheath was pulled and a TR Band was applied for hemostasis - 12cc air CORONARY ANGIOGRAPHY DOMINANCE: Right Dominant LEFT HEART ASSESSMENT Left Ventricular Ejection Fraction: by LV Gram 25-30 % Global Hypokinesis - Severe LEFT MAIN: Angiographically normal LEFT ANTERIOR DESCENDING ARTERY: PROX LAD: 30 % Stenosis, 100 % Stenosis after the origin after a large diagonal. Collaterals noted fr om the RCA to mid LAD CIRCUMFLEX ARTERY: PROX CIRC: 70 % Stenosis RIGHT CORONARY ARTERY: PROX RCA: 100 % Stenosis. Bridging collaterals noted VALVE FINDINGS: No Aortic Valve Stenosis No Mitral Insufficiency COMPLICATIONS No Complications PROCEDURE MEDICATIONS Fentanyl 50 mcg IV Versed 1 mg IV Oxygen: 2 L/min via nasal cannula Heparin given IA 01/01/2021 14:50:11 Verapamil 2.5mg, Ntg 100mcgs, 3000 units of Heparin given IA 01/01/2021 14:50:11 SUMMARY OF HEMODYNAMIC DATA Time AIR REST ECG 14:20:45 AO 107/78 (93) SA 14:52:40 LV 137/10, 28 15:02:17 LV 137/5, 26 15:02:23 LV 135/9, 26 15:02:50 LV 128/7, 28 15:02:58 LVp 138/10, 34 15:03:06 AOp 134/85 (107) 15:03:11 Signed By Faisal Bethea MD On 01/01/2021 18:09:21 Faisal Bethea MD
[2021-01-01] MEDS: Atorvastatin Calcium 80 MG Tablet PO (21:09)
[2021-01-02 02:59] VITALS: PULSE 58
[2021-01-02 03:05] VITALS: BP 123/67; PULSE 75; RESP 16; TEMP 36.7; O2SAT 100
[2021-01-02 05:54] LABS: Absolute Lymphocyte Count 1.65 X10^3/uL (0.83-4.51); Absolute Neutrophil Count 3.5 X10^3/uL (2.0-7.7); Basophil# 0.01 X10^3/uL; Basophil% 0.2 % (0-1); Eosinophil# 0.05 X10^3/uL; Eosinophils% 0.9 % (0-5); Hematocrit 36.3 % (40-54); Hemoglobin 12.5 g/dL (13.0-16.5); Lymphocyte # 1.65 X10^3/ul (0.83-4.51); Lymphocyte % 28.1 % (19-41); Mean Corp Hgb Conc 34.4 g/dL (32-36); Mean Corpuscular Hgb 29.8 pg (27.0-32.0); Mean Corpuscular Volume 86.4 fL (80-94); Mean Platelet Vol. 8.5 fl (6.2-12.0); Monocyte# 0.64 X10^3/uL; Monocyte% 10.9 % (0-10); NRBC Flagged by Analyzer 0 % (0-5); Neutrophil % 59.6 % (47-70); Platelet Count 213 K/mm3 (150-450); RBC Distribution Width CV 12.5 % (11.6-14.6); RBC Distribution Width SD 39.6 fl (35.1-43.9); White Blood Count 5.9 K/mm3 (4.4-11.0)
[2021-01-02 06:23] LABS: Anion Gap 8 (5-15); BUN 18 mg/dL (7-18); BUN/Creat Ratio 23.3 RATIO (10-20); Calcium,Total 8.2 mg/dL (8.5-10.1); Chloride 91 mmol/L (98-107); Creatinine, Serum 0.77 mg/dL (0.70-1.30); EST Glomerular Filtration Rate 111 mL/min (>60); Est Glom Filt Rate - Afr Amer 135 mL/min (>60); Glucose 113 mg/dL (74-106); Potassium 3.8 mmol/L (3.5-5.1); Sodium Level 125 mmol/L (136-145)
[2021-01-02 07:16] VITALS: PULSE 66
[2021-01-02 08:30] VITALS: BP 140/81; PULSE 68; RESP 16; TEMP 36.7; O2SAT 98
[2021-01-02] MEDS: Aspirin 81 MG TAB.CHEW PO (08:31)
[2021-01-02] MEDS: Carvedilol 6.25 MG Tablet PO (08:32)
--- NOTE | 2021-01-02 10:14 | PCM.PN.REN ---
Subjective Subjective No headache. no nausea no vomiting Objective Data Objective Data Vital Signs: Vital Signs Temp Pulse Resp BP Pulse Ox 98.1 F 68 16 140/81 H 98 01/02/21 08:30 01/02/21 08:30 01/02/21 08:30 01/02/21 08:30 01/02/21 08:30 Oxygen Delivery Method Room Air Weight: 118.6 kg Body Mass Index (BMI) 39.7 Intake & Output: Intake and Output for Last 24 Hours 12/31/20 01/01/21 01/02/21 23:59 23:59 23:59 Intake Total 1592.5 / 1592.5 1058 / 1058 Output Total 5525 / 5525 1175 / 1175 Balance -3932.5 / -3932.5 -117 / -117 Lab / Micro Data Result Diagrams: 01/02/21 05:30 01/02/21 05:30 Labs: Laboratory Results - last 24 hr 01/02/21 05:30: WBC 5.9, RBC 4.20 L, Hgb 12.5 L, Hct 36.3 L, MCV 86.4, MCH 29.8, MCHC 34.4, RDW Std Deviation 39.6, RDW Coeff of Chrystal 12.5, Plt Count 213, MPV 8.5, Immature Gran % (Auto) 0.300, Neut % (Auto) 59.6, Lymph % (Auto) 28.1, [place] % (Auto) 10.9 H, Eos % (Auto) 0.9, Baso % (Auto) 0.2, Absolute Neuts (auto) 3.5, Absolute Lymphs (auto) 1.65, Nucleated RBC % 0 01/02/21 05:30: Sodium 125 L, Potassium 3.8, Chloride 91 L, Carbon Dioxide 26.0, Anion Gap 8, BUN 18, Creatinine 0.77, Estim Creat Clear Calc 106.10, Est GFR (MDRD) Af Amer 135, Est GFR (MDRD) Non-Af 111, BUN/Creatinine Ratio 23.3 H, Glucose 113 H, Calcium 8.2 L Micro: Microbiology 12/30/20 11:30 Mucosa - Nasopharyngeal Influenza Types A,B Direct FA (MARCIE) - Final 12/30/20 11:30 Mucosa - Nose SARS-CoV-2 Antigen (Rapid) - Final Physical Exam Narrative General: Alert and oriented x3, no apparent distress. HEENT: Normocephalic, atraumatic. Mucous membrane moist without erythema. Hearing is intact. PERRLA, EOMI. Neck: Supple, no JVD. Heart: Normal S1, S2; no rubs, murmurs or gallops. Lungs: Clear to auscultation bilaterally. Abdomen: Normal bowel sounds, abdomen is soft, nontender to palpation. No guarding or rebound. Extremity: No clubbing, cyanosis or edema. Neurologic: No focal neurologic deficit. Cranial nerves II through XII are grossly intact. Skin: No rash. Skin is warm and dry. Psychiatric: Normal affect. Assessment & Plan Assessment/Plan (1) Hyponatremia: PLAN: The patient presented with serum sodium of 118 mmol/L. Urine sodium is greater than 30, and urine osmolality is greater than 100. TSH and cortisol level are within normal limits. Serum uric acid level is low. The patient appears to be euvolemic on exam. The patient has not been on any medication that normally is associated with hyponatremia such as SSRI or thiazide diuretic. 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 Na level dropped to 125 mmol/L from 127 mmol/ despite fluid restriciton Will add lasix 20 mg PO daily Continue fluid restriction Ok to d/c patient from nephrology stand point with lasix 20 mg PO daily and same fluid restriction Check BMP Monday as OP if he will be discharged today (2) Hypocalcemia: PLAN: The patient is asymptomatic from hypocalcemia. There is no hyperreflexia or myoclonus. So, there is no urgency to replace calcium deficit. I would recommend checking phosphorus level and albumin.
--- NOTE | 2021-01-02 10:45 | DS.PCM_ITS ---
Providers Date of Admission: 12/30/20 Primary Care Physician: Gracie Primary Care Phys Consultations 12/31/20 07:18 Consult: Nephrology Routine Consulting Provider: Sukhwinder Cartagena Reason for Consult: New SIADH EMERGENT Consult: No Notified: Yes Date Notified: 12/31/20 Time Notified: 07:19 Method of Notification: Answering Service 01/01/21 11:10 Consult: Cardiology Routine Consulting Provider: Korin Bethea Reason for Consult: new cardiomyopathy EMERGENT Consult: No Notified: Yes Date Notified: 01/01/21 Time Notified: 11:10 Method of Notification: Verbal Reason For Visit: HYPONATREMIA Diagnosis Discharge Diagnosis (1) Hyponatremia: Status: Acute Code(s): E87.1 - Hypo-osmolality and hyponatremia (2) Hypocalcemia: Status: Acute Code(s): E83.51 - Hypocalcemia Medications at Discharge Home Medications aspirin 81 mg PO BREAKFAST #0 tab 01/02/21 atorvastatin 80 mg PO QHS #30 tab 01/02/21 carvedilol 6.25 mg PO BID #60 tab 01/02/21 furosemide [Lasix] 20 mg PO DAILY #30 tab 01/02/21 Hospital Course Operations None Procedures Cardiac catheterization, Nuclear stress test and - (MRI brain/CT chest) Summary of Care Provided Minutes Spent on Discharge: 45 Hospital Course: MARISA HYATT, is a 55 M who presented to the emergency department [facility] on 12/30/2020 with cold symptoms and fatigue that he has been suffering from for approximately 1 week at this time. He stated that he has a cough but no shortness of breath. The cough was intermittently productive of only small amounts of phlegm. He denied hemoptysis. He reported that he has had intermittent sweats and malaise but no fevers documented. He presented to the urgent care on the day of admission because he had another sweaty episode that was again not associated with a fever. He denied any chest pain, syncope, nausea, vomiting, diarrhea, palpitations, or body aches. He had Covid in July and was fairly symptomatic but did not require hospitalization. He has not yet been vaccinated. His vital signs in the emergency department were stable. His EKG is noted to have T wave inversion in the inferior and lateral but no signs of acute ischemia. His troponin was negative and remained negative after admission with us cycling. His CBC was unremarkable. His BMP showd marked hyponatremia with a sodium of 118 and a chloride of 84. His serum creatinine was normal. His glucose was 1 35. His chest x-ray is unremarkable. He was admitted for further work-up of his hyponatremia. We suspected upon admission that this was more of a chronic issue rather than acute given his lack of symptoms related to hyponatremia. Urine osmolality and sodium as well as serum osmolality and uric acid were obtained and were all consistent with SIADH his exam was euvolemic and he had not been on any medications that would be associated with SIADH or hyponatremia. He was placed on a fluid restriction of 1500 cc. We obtained a CT of the chest to rule out any neoplasm that may be associated with secretion of antidiuretic hormone and this was negative. An MRI was obtained and showed empty sella syndrome but no signs of tumor and given the fact he had a normal TSH and a normal cortisol level I suspect this is an incidental finding. He was evaluated by nephrology and his sodium peaked at 130 but was hovering between 125 and 127 upon discharge and nephrology started 20 mg of Lasix at discharge to help with volume removal. He was also to continue his fluid restriction. He was given a marked cup and we discussed the amount of volume he was able to taken by mouth daily to maintain his fluid restriction. With regards to his abnormal EKG, his cardiac enzymes were cycled and were negative, a stress test was performed on 01/01/2021 and showed evidence of prior septal and apical myocardial infarction with possible mild julio césar-infarct ischemia involving the septum and the gated Cardiolite study reported an EF of 29%. 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 His EF via LV gram was 25 to 30% and showed global severe hypokinesis. The left main artery was angiographically normal, the LAD showed proximal stenosis at 30% with 100% stenosis after the origin of the large diagonal artery and collaterals were noted from the RCA to the mid LAD, he had proximal circumflex artery stenosis at 70%, and his RCA with 100% stenotic with bridging collaterals. The utility mechanic supervisor discussed his case with Dr. Talbert at [facility] in [place] and an outpatient appointment for him was made on 01/05/2021 at 7 AM for further evaluation and consideration for cardiothoracic surgery. A hemoglobin A1c was obtained and found to be 5.4. Lipids were performed and showed a total cholesterol of 205, and LDL of 150, and an HDL of 27. He was started on a beta-tash, aspirin, statin, and the above Lasix for his SIADH. CARLO inhibitor was held secondary to blood pressure lability and can be started as an outpatient if his blood pressures remained stable. He will have a BMP done on Monday with instructions to fax the results to Dr. Powers from nephrology. I discussed at length with both he and his are cardiac findings, the plan for this and his SIADH and the treatment plan for this as well. He is to follow-up with Dr. Talbert as above, Dr. Powers in 2 to 4 weeks, and his primary care physician in 1 week. All prescriptions were faxed to the retail pharmacy in-house. He was discharged in stable and asymptomatic condition. Discharge diagnoses: Hyponatremia secondary to SIADH Ischemic cardiomyopathy HFrEF-compensated Hyperlipidemia Hypertension Microscopic hematuria Obesity Physical Exam Const alert, oriented x3 and no apparent distress Constitutional Narrative: Obese white male sitting a chair in his bedside, appears comfortable, nontoxic General Appearance: cooperative, comfortable, well kempt and well developed Exam Limitations: no limitations HEENT normocephalic, head/scalp atraumatic, hearing grossly normal bilaterally, moist oral mucous membranes and oropharynx normal HEENT Narrative: Mallampati 2-3, good dentition Eyes PERRL, EOMs intact bilaterally and conjunctivae normal Neck no lymphadenopathy, supple and no JVD Neck Narrative: Trachea midline, short thick neck Resp normal respiratory effort, no retractions, no use of accessory muscles and clear to auscultation bilaterally Auscultation: Negative for crackles, rales, rhonchi or wheezes Cardio regular rate, regular rhythm, S1 normal heart sound, S2 normal heart sound, no murmurs, no rub, no gallops, no clicks and no JVD GI normal to inspection, nondistended, normoactive bowel sounds, soft to palpation, non-tender and non-distended Extremity normal to inspection and no clubbing, cyanosis or edema Skin no rashes or lesions noted, no wounds, skin turgor normal, no jaundice, no petechiae and no mottling Neuro oriented x3, CN's II-XII intact bilaterally, moves all extremities and no focal motor deficits Neuro Narrative: Reflexes 2+ Sensorium / Orientation: awake, alert, oriented to person, oriented to place and oriented to time Speech: speech normal Motor Exam: strength 5/5 throughout Psych affect normal Psych Narrative: Slightly anxious but very pleasant Weight / BMI Weight Weight: 118.6 kg Body Mass Index (BMI) 39.7 ABG / Lab / Microbiology Data Result Diagrams: 01/02/21 05:30 01/02/21 05:30 Laboratory: Laboratory Results - last 24 hr 01/02/21 05:30: WBC 5.9, RBC 4.20 L, Hgb 12.5 L, Hct 36.3 L, MCV 86.4, MCH 29.8, MCHC 34.4, RDW Std Deviation 39.6, RDW Coeff of [place]rystal 12.5, Plt Count 213, MPV 8.5, Immature Gran % (Auto) 0.300, Neut % (Auto) 59.6, Lymph % (Auto) 28.1, Person % (Auto) 10.9 H, Eos % (Auto) 0.9, Baso % (Auto) 0.2, Absolute Neuts (auto) 3.5, Absolute Lymphs (auto) 1.65, Nucleated RBC % 0 01/02/21 05:30: Sodium 125 L, Potassium 3.8, Chloride 91 L, Carbon Dioxide 26.0, Anion Gap 8, BUN 18, Creatinine 0.77, Estim Creat Clear Calc 106.10, Est GFR (MDRD) Af Amer 135, Est GFR (MDRD) Non-Af 111, BUN/Creatinine Ratio 23.3 H, Glucose 113 H, Calcium 8.2 L Microbiology: Microbiology 12/30/20 11:30 Mucosa - Nasopharyngeal Influenza Types A,B Direct FA (MARCIE) - Final 12/30/20 11:30 Mucosa - Nose SARS-CoV-2 Antigen (Rapid) - Final D/C Instructions Discharge Diet: Low fat / Low cholesterol, 2000 mg Sodium Diet and - (Fluid restiction of 3393-7848 cc per day) Discharge Activity: - (Avoid exertional activites until seen by CT surgery) Meaningful Use Info Meaningful Use Diagnoses (Choose all that apply): None applicable Discharge Plan Admission Admit Date/Time: 12/30/20 13:13 Primary Reason for Your Visit: Hyponatremia Attending Provider: Delmy Jacobsen Primary Care Provider: Care Physician,No Primary Consulting Providers: Sukhwinder Cartagena ; Korin Bethea Instructions Patient Instructions: Living with Cardiomyopathy, Cardiomyopathy Dc Additional Instructions / Restrictions: You have an appointment with Dr. Talbert on Monday01/05/2021 ([facility]) [phone] BMP to be obtained on Monday --> please tell lab to fax results to Dr. Jv Cartagena Discharge Orders/Prescriptions Prescriptions: New atorvastatin 80 mg Tablet 80 mg PO QHS Qty: 30 RF: 2 aspirin 81 mg Tablet,Chewable 81 mg PO BREAKFAST Qty: 0 RF: 0 carvedilol 6.25 mg Tablet 6.25 mg PO BID Qty: 60 RF: 2 furosemide [Lasix] 20 mg tablet 20 mg PO DAILY Qty: 30 RF: 0 Other Ambulatory Orders: Basic Metabolic Profile (BMP) (Routine) Timeframe: 20210104 Facility: [facility] - Location: Laboratory Ordered By: Dr. Delmy Jacobsen Referrals / Follow Up: Sukhwinder Cartagena MD [STAFF PHYSICIAN] - In 1 Week (Hospital follow-up for hyponatremia secondary to SIADH) Gustabo Kennedy MD [NON-STAFF] - In 1 Week (hospital f/u) Care Physician,No Primary [Primary Care Provider] - Disposition Disposition (needs filled in before D/C Order can be placed): Home, Self Care Charges/Coding Visit Charges Inpatient E&M: 07889 Disch Hosp
--- NOTE | 2021-01-02 11:19 | DCINST_ITS ---
Discharge Instructions Diet Discharge Diet: Low fat / Low cholesterol, 2000 mg Sodium Diet and - (Fluid restiction of 8285-6681 cc per day) Follow Up Care Test Results: Test results from this visit will be discussed in further detail at your follow-up appointment, if applicable. Discharge Plan Admission Admit Date/Time: 12/30/20 13:13 Primary Reason for Your Visit: Hyponatremia Attending Provider: Delmy Jacobsen Primary Care Provider: Care Physician,No Primary Consulting Providers: Sukhwinder Cartagena ; Korin Bethea Instructions Patient Instructions: Living with Cardiomyopathy, Cardiomyopathy Dc Additional Instructions / Restrictions: You have an appointment with Dr. Talbert on Monday01/05/2021 ([facility]) [phone] BMP to be obtained on Monday --> please tell lab to fax results to Dr. Jv Cartagena Discharge Orders/Prescriptions Prescriptions: New atorvastatin 80 mg Tablet 80 mg PO QHS Qty: 30 RF: 2 aspirin 81 mg Tablet,Chewable 81 mg PO BREAKFAST Qty: 0 RF: 0 carvedilol 6.25 mg Tablet 6.25 mg PO BID Qty: 60 RF: 2 furosemide [Lasix] 20 mg tablet 20 mg PO DAILY Qty: 30 RF: 0 Other Ambulatory Orders: Basic Metabolic Profile (BMP) (Routine) Timeframe: 20210104 Facility: [facility] - Location: Laboratory Ordered By: Dr. Delmy Jacobsen Referrals / Follow Up: Sukhwinder Cartagena MD [STAFF PHYSICIAN] - In 1 Week (Hospital follow-up for hyponatremia secondary to SIADH) Gustabo Kennedy MD [NON-STAFF] - In 1 Week (hospital f/u) Care Physician,No Primary [Primary Care Provider] - Disposition Disposition (needs filled in before D/C Order can be placed): Home, Self Care
== END 2021-01-02 11:45 | disposition home or self-care (01) | DRG 644 ==
LOC: ED 12:21 → PCU 12-31 06:09
PROVIDERS: Internal Medicine Nephrology; Nurse Practitioner Family; Admitting Provider Internal Medicine; Emergency Provider Emergency Medicine; Visit Provider Internal Medicine
DX: E22.2 Syndrome of inappropriate secretion of antidiuretic hormone (principal); I50.22 Chronic systolic (congestive) heart failure; E83.51 Hypocalcemia; R31.29 Other microscopic hematuria; E66.9 Obesity, unspecified; E78.5 Hyperlipidemia, unspecified; I25.10 Atherosclerotic heart disease of native coronary artery without angina pectoris; I25.2 Old myocardial infarction; I25.5 Ischemic cardiomyopathy; Z86.16 Personal history of COVID-19; R73.9 Hyperglycemia, unspecified; Z68.39 Body mass index [BMI] 39.0-39.9, adult; K59.00 Constipation, unspecified; Z79.899 Other long term (current) drug therapy
CPT/HCPCS: 36415; 70553; 71045; 71250; 78452; 80048; 80061; 81001; 82040; 82533; 83036; 83735; 83930; 83935; 84100; 84133; 84300; 84443; 84484; 84550; 85025; 87426; 87804; 93005; 93017; 93458; 99152; 99153; 99285; A9500; A9575; J7030; Q9967; A4216; C1769; C1894

== ENCOUNTER → 2021-01-04 08:45 | Outpatient (CLI) | payer OTHER, SELFPAY ==
[2020-12-30 14:45] VITALS: BMI 39.7
[2021-01-04 11:21] LABS: Anion Gap 7 (5-15); BUN 20 mg/dL (7-18); BUN/Creat Ratio 21.9 RATIO (10-20); Chloride 94 mmol/L (98-107); Creatinine, Serum 0.91 mg/dL (0.70-1.30); EST Glomerular Filtration Rate 92 mL/min (>60); Est Glom Filt Rate - Afr Amer 111 mL/min (>60); Glucose 89 mg/dL (74-106); Potassium 3.9 mmol/L (3.5-5.1); Sodium Level 130 mmol/L (136-145)
== END ==
PROVIDERS: PCP Internal Medicine; Referring Provider Internal Medicine; Visit Provider Internal Medicine
DX: E87.1 Hypo-osmolality and hyponatremia (principal)
CPT/HCPCS: 36415; 80048

== ENCOUNTER → 2021-02-25 12:41 | Outpatient (CLI) | payer OTHER, SELFPAY ==
[2021-02-25 13:26] LABS: Anion Gap 5 (5-15); BUN 12 mg/dL (7-18); BUN/Creat Ratio 14.3 RATIO (10-20); Calcium,Total 9.3 mg/dL (8.5-10.1); Chloride 104 mmol/L (98-107); Creatinine, Serum 0.84 mg/dL (0.70-1.30); EST Glomerular Filtration Rate 101 mL/min (>60); Est Glom Filt Rate - Afr Amer 122 mL/min (>60); Glucose 98 mg/dL (74-106); Sodium Level 137 mmol/L (136-145)
== END ==
PROVIDERS: PCP Family Medicine; Referring Provider Internal Medicine Nephrology; Visit Provider Internal Medicine Nephrology
DX: E87.1 Hypo-osmolality and hyponatremia (principal)
CPT/HCPCS: 36415; 80048

== ENCOUNTER → 2021-03-30 06:56 | Outpatient (CLI) | payer OTHER, SELFPAY ==
--- NOTE | 2021-03-30 06:57 | PCM.CR.ITP ---
Diagnosis - General Information Admitting Diagnosis: Acute VA,12 mo, S/P Coronary artery bypass graft (CABG) Personal Learning Style:: Audio/Visual, Written Barriers to Learning: No Barriers Stage of change r/t lifestyle modifications:: Action Gave educational material for:: Treating Heart Disease, Emotions & Heart Disease, Stress Management & Relaxation, Sleep Disorders & Heart Disease, How The Heart Works, What it means to have Heart Disease, How Coronary Artery Disease is Diagnosed, Heart Procedures, What Heart Medications Do, Risk Factors & Modifications, Living an Active Life, Nutrition - Education/Goals Individual Counseling: Initial Assessment: Abnormal Cholesterol Levels, High Blood Pressure, Overweight/Obesity Cardiac Rehabilitation Goals: 1. Maintain the individual as the primary focus of care. 2. To improve the patient's quality of life. 3. Identification of cardiac risk factors and provide cardiac risk factor management. 4. Enhance the psychosocial status of the patient. 5. Reconditioning enough to allow the patient to resume customary activities. 6. Control symptoms of cardiac disease Personal Goals: Initial Assessment: Improve management of stress and emotions, Improve energy level, Participate in home exercise program, Improve muscle strength and endurance, Improve diet and eating habits (eat healthier), Control risk factors (learn risk factor modification) Scale for measuring improvement of personal goals: Enter appropriate number in Comments. 2 = Unchanged. 3 = Slightly Better. 4 = Moderate Improvement. 5 = Met my Goal - Diagnosis & Disease Process Outcomes/Goals: Pt IDs own risk factors & lifestyle modifications by Session 10, Verbalizes symptoms of angina & response by session 3., Pt independently manages Plan/Interventions: Assist Pt to ID & engage in lifestyle modification to reduce CVD risk, Instruct on individual risk factors, Review symptoms of angina & emergency actions, Review secondary diagnosis & identify educational needs. - Safety Referral to Physical Therapy: No Referral to [facility] Case Management: No Fall Risk Assessed:: Yes Assistive Devices:: None Exercise - Initial Assessment - Visit Date of Eval: 03/30/21 Session #:: 0 - Pre-cardiaxc rehab evaluation Mets: Pre-: >7 METS for 30 minutes by discharge - Physician Prescribed Exercise Modalities: Treadmill, Airdyne, NuStep Frequency: 3x/week for 12 weeks [36 sessions] Intensity: 60-80% of age predicted maximum heart rate reserve Current METSs:: 4.0 Target Heart Rate:: 107-140 Resting Blood Pressure: 135/76 EKG Type: Normal Sinus Rhythm Current Physical Activity or Exercising minutes: Walking at home daily about 2 to 3 miles, and about 2 miles daily at work. - Outcomes & Goals Goals:: Verbalizes understanding of THR, RPE & goal METS by session 6, Documents in home exercise log/reports 30 min aerobic 5 day/wk by DC, Demonstrates accurate pulse taking by DC - Intervention & Plan Exercise Program Goals: Instruct on personal THR & RPE, Instruct on MET level & personal MET goal, Show patient to take own pulse /validate performance until accurate, Instruct on home exercise - Physical Activity Home Exercise Physical Activity - Home Exercise: Safe Exercise, Warm-up, Self-monitoring, Cool-Down, Home Exercise > 30 min Daily, Sitting Time <3 hours/daily - Outcomes & Goals Outcomes/Goals: Demonstrates correct Warm-up/exercise Cool-Down (S3) if = 2.5 METs, Verbalizes symptoms of exercise intolerance by Session 3 (S3), Demonstrate safe equipment use (S3) & follows exercise prescrition (6) - Intervention & Plan Plan/Intervention: Instruct warm-up & cool-down if exercising at > 2 METs, Instruct on symptoms of exercise intolerance & actions to take, Instruct & monitor on saf, Assess intial functional capacity & safety risk Nutrition - Initial Assessment - Program Goals Nutrition Program Goals: LDL <100 optimal. 100 - 129 Near optimal. 130 - 159 Borderline High. 160 - 189 High. Total Cholesterol <200 desirable. 200 - 239 Borderline High. >/= 240 High. HDL < 40 Low >/=60 High. Triglycerides <150 desirable. <199 optimal. VlDL 5 - 40. HgbA1C <7%. BMI <25 Patient has diagnosis of Hyperlipidemia (ICD E78)?: Yes - Visit Date of Assessment:: 03/30/21 Session #:: 0 - Pre-cardiac rehab evaluation - Cholesterol/Lipids Triglycerides (mg/dL): 138 - 12/30/2020 Total Cholesterol (mg/dL): 205 LDL Cholesterol (mg/dL): 150 HDL Cholesterol (mg/dL): 27 Lipid Medication: Atorvastatin Determine presence & major risk factors that modify LDL goal: Hypertension or hypertensive medication, Low HDL cholesterol <40 mg/dL*, Family history of premature CHD in Male < 55 years: female <65 yearsFa, Age men > 45 years; women >/= 55 years Outcomes/Goals: Pt IDs own risk factors & lifestyle modifications by Session 10, Verbalizes symptoms of angina & response by session 3., Pt independently manages Intervention/Plan: Instruct on personal lipid levels & lipid goals/NCEP guidelines, Instruct on cholesterol - Diabetes (Other Core Measures) Diabetes Type: Not Applicable - Weight Mgt (Other Care) Not Applicable: No Height: 5 ft 8 in Weight:: 240 lb BMI: 36.5 Diagnosis Overweight/Obesity BMI> 30% ICD-10 E66: Yes Diagnosis High BMI/Morbid Obesity BMI> 35% ICD-10 Z68: Yes Outcomes/Goals: Pt sets, maintains & shows weight loss goal & trend during rehab Intervention/Plan: Instruct on ideal BMI & set weight loss goal w/patient, Assist pt to ID & incorporate diet changes for weight loss by S9, Refer to Structured Weight Loss program as appropriate, Encourage goal of using 250-300dcal per session for weight loss - Healthy Eating Habits Will attend diet classes:: Yes Outcomes/Goals:: Consume diet rich in vegs,fruits,whole grain/high fiber,fish,lean meat, Limit sat/trans fats,cholesterol & added salts & sugars Intervention/Plan:: Assess current eating habits - Education Gave educational materials for:: Healthy eating Nutrition - 30-Day Assessment Nutrition - 60-Day Assessment Nutrition - 90-Day Assessment Nutrition - Final Assessment Medical - Initial Assessment - Visit Date of Eval: 03/30/21 Session #:: 0 - Pre-cardiac rehab evaluation - Medication Compliance Preventative Medication(s):: Aspirin, Clopidogrel/P2Y12 inhibit, Statin/lipid, Beta tash H/O mental health issues: depression, anxiety, or addiction?: No Doesn?t believe in the benefits of treatment?: No Believes medications are unnecessary or harmful?: No Has a concern about medication side effects?: No Expresses concern over the cost of medications?: No Outcomes/Goals: Verbalizes medications,desired effect & common side effects @ DC, Pt self-reports following medication regimen, Keeps card in wallet w/medications listed by DC Interventions/plans: Instruct on medication effects & side effects, Review medication list w/patient every two weeks, Instruct importance of taking meds as ordered & assist problem solving - Tobacco Use Tobacco Use: Non-smoker - Hypertension Hypertension Diagnosis:: Hypertension ICD-10 I10 Resting Blood Pressure:: 135/76 - Stage I Hypertension continue to monitor [place] [employer] Hypertension Guidelines: [place] [employer] Hypertension Guidelines. Normal BP Less than 120/80. Elevated BP 120/80. Hypertension Stage 1: BP 130-139/80-89. Hypertesnion Stage 2: BP 140 or higher/90 or higher. Hypertension Crisis: BP higher than 180/120 Outcomes/Goals: Able to verbalize/achieve optimal blood pressure <130/80, Incorporates diet changes & exercise for blood pressure control by DC Interventions/plan: Instruct on optimal blood pressure, hypertension & medications, Instruct on effects of sodium, alcohol, stress, exercise &hypertension - Tobacco Cessation Referral Smoking Cessation Referral:: No Individual Education/Counseling:: No Education Schedule Given:: Yes Medical- 30-Day Assessment Medical- 60-Day Assessment Medical- 90-Day Assessment Medical - Final Assessment Psychosocial - Initial Assess - VIsit Date of Eval: 03/30/21 Session #:: 0 - Pre-cardiac Rehab evaluation Not Applicable: Yes History of previous Mental disease:: No - Psychosocial Test Tool Used:: Cloutex QOL Cardiac, PHQ-9 Questionnaire phq-9 Severity: Severity. 1-4 Minimal Depression. 5-9 Mild Depression. 10-14 Moderate Depression. 15-19 Moderately Sever Depression. 20-27 Severe Depression. Rule: - Referral to Behavioral Health PS - Interventions: Yes Attend Stress Management Classes, No Referral to Behavioral Health if PHQ-9 score >9:, No Referral to [facility], No Referral to Physician if PHQ-9 if score is 5-9: - Outcomes/Goals: See list Psychosocial Outcomes/Goals:: ID's personal stressors & 2 strategies to manage stress by discharge - Intervention/Plan: See List Interventions/Plan:: Assess stressors,coping strategies & signs of derpression on admission, Instruct/assist pt to develop coping & personal stress Mgt strategies, Instruct patient to recognize signs & symptoms of depression, Instruct patient to recog Psychosocial - 30-Day Assess Psychosocial - 60-Day Assess Psychosocial - 90-Day Assess Psychosocial - Final Assessmen Patient Health Questionnaire Initial Assessment 1. Little interest or pleasure in doing things: Not at all 2. Feeling down, depressed, or hopeless: Not at all 3. Trouble falling or staying asleep, or sleeping too much: Not at all 4. Feeling tired or having little energy: Not at all 5. Poor appetite or overeating: Not at all 6. Feeling bad about yourself -- or that you are a failure or have let yourself or your family down: Not at all 7. Trouble concentrating on things, such as reading the newspaper or watching television: Not at all 8. Moving or speaking so slowly that other people could have noticed. Or the opposite - being so fidgety or restless that you have been moving around a lot more than usual: Not at all 9. Thoughts that you would be better off , or of hurting yourself in some way: Not at all How difficult have these problems made it for you to do your work, take care of things at home, or get along with other people?: Not difficult at all Total Score: 0 ARIEL-Q SV Test - Statements CAD is a disease of the arteries in the heart: False Examples of risk factors for heart disease: True Angina is chest pain or discomfort: I Don't Know The benefits of resistance training include: True Eating more meat and dairy products: False Anti-platelet medications such as aspirin are important: True The only effective way to manage stress: False An exercise warm-up slowly increases heart rate: True Prepared, processed foods usually have high sodium: True Depression is common after a heart attack: True The statin medications lower cholesterol: True To control blood pressure, lower the amount of sodium: False If someone gets chest discomfort during walking: False Transfats are partially hydrogenated vegetable oils: True Sleep apnea that is not treated increases the risk: I Don't Know To control cholesterol, one should become a vegetarian: False Someone knows if he/she is exercising at the right level: True Diabetes cannot be prevented with exercise & health eating: False Stress is a large risk for heart attack: True A diet that can help lower blood pressure is rich in: True - Total Score Total Correct Responses: 17 Self-Efficacy Initial Assessment We would like to know how confident you are in doing certain activities. Please select your confidence level for:: Select your confidence level for the following using the scale 1-10 where 1 is not at all confident and 10 is totally confident. Your score is the average of all 6 responses. Fatigue: How confident are you that you can keep the fatigue caused by your disease from interfering with the things you want to do? Select Number: 9 Physical Discomfort or Pain: How confident are you that you can keep the physical discomfort or pain of your disease from interfering with the things you want to do? Select Number: 7 Emotional Distress: How confident are you that you can keep the emotional distress caused by your disease from interfering with the things you want to do? Select Number: 9 Other Symptoms or Health Problems: How confident are you that you can keep other symptoms or health problems from interfering with the things you want to do? Select Number: 7 Different Tasks and Activities: How confident are you that you can do the different tasks and activities needed to manage your health condition so as to reduce your need to see a doctor? Select Number: 9 Medication: How confident are you that you can do things other than just taking medication to reduce how much your illness affects your everyday life? Select Number: 9 Total Score:: 8 Nutrition Survey - Nutrition Survey Initial Have you lost >10 lbs over the past 2 months without trying?: No - Have lost 25+ pounds watching diet eliminating snacks and walking 2-3 miles daily. Are you following a special diet at home for diabetes, low fat, or low salt?: Yes Are you interested in meeting with a dietitian for help understanding your diet?: Yes Do you eat less than 3 meals a day?: No Do you eat fatty meats (reeves, sausage, ribs, etc), fried foods, desserts, large amounts of salad dressings, margarine, butter, or cheese most days?: No Do you have food allergies? [Enter types in comment field]: No Do you eat in restaurants more than 3 times a week?: No Do you season food with salt, seasoning salt, or garlic salt?: No Do you used canned, boxed, frozen meals, or soups, seasoning packets?: No Total Score:: 2
--- NOTE | 2021-03-30 06:57 | PCM.CR.HP2 ---
CR - History & Physical - General Arrival date:: 03/30/21 Arrival time:: 07:00 Date of Referral:: 03/12/21 Date of CR Evaluation:: 03/30/21 Referring Physician: Dr. Stanley Ricardo @ [place], [place] Primary Diagnosis: S/P CABG - History of Present Cardiac Event Onset Date: Enter Onset Date of cardiac illnesses in Comment field below Acute Myocardial Infarction within 12 months:: Yes - [place] 01/25/2021 Coronary Artery Bypass Graft:: Yes - Coronary artery bypass graft 01/25/2021 Type of Symptoms:: Low sodium levels, was admitted to hospital. Had COVID-19 in June 2020, the symptoms started with sweating and chest pain, EKG changes and 118 sodium level. When sodium levels begin to drop he aquires blurred vision and knows to get to emergency room or urgent care. Interventions with present event:: Left heart cath and bypass surgery 100% occlusion and developed collaterals - Sleep Disorder Evaluation Hx of Sleep Apnea: Yes Do you snore loudly (louder than talking or can be heard through closed doors)?: Yes - Physician noted possible obstructive sleep apnea Do you often feel tired/ fatigued/ sleepy during daytime?: Yes Has anyone observed you stop breathing during sleep?: No History of Hypertension (for STOP score): Yes STOP Results: Positive - Medications Home Medications: Ambulatory Orders Medication Instructions Recorded aspirin 81 mg PO BREAKFAST #0 tab 01/02/21 atorvastatin 80 mg PO QHS #30 tab 01/02/21 carvedilol 3.125 mg PO BID 03/30/21 clopidogrel 75 mg PO DAILY 03/30/21 lisinopril 5 mg PO DAILY 03/30/21 - Allergies Allergies/Adverse Reactions: Allergies No Known Allergies Allergy (Verified 12/30/20 10:57) Advanced Directives - Advanced Directives Power of Asset Management Coordinator: Yes - is POA for Healthcare Living Will: Yes Advance Directives Information Provided: No Advance Directives on File: No - Patient to bring ADvanced sirective for electroni scanning DNR Order?:: No - MOLST See MOLST form: No Past Medical History - Covid-19 Screening Fever: No Unexplained muscle aches: No Current respiratory symptoms: No Upper respiratory infections symptoms: No Gastro-intestinal symptoms: No Nrt-[id number]-Klchtq symptoms: No Has tested positive for COVID-19 in last 30 days: No Date of testin07/01/20 - Had COVID-19 in June 2020, not vaccinated. Had contact w/person w/symptoms or Covid-19 (+) last 14 days: No Has High Risk Exposures ID'd by Health dept/Inf Control team: No 65 years or older:: No Lives in Assisted Living facility:: No Has a chronic lung disease or moderate to severe asthma:: No Has a serious heart condition:: Yes Immunocompromised:: No Severely obese (Body Mass Index of 40 or higher):: No Diabetic:: No Has chronic kidney disease undergoing dialysis:: Yes Has liver disease:: No - Past Medical Illness Medical History: Past Medical History (Last Updated 03/30/21 @ 07:16 by David Flores CRT, MISTY, BS) Abnormal EKG R94.31 Abnormal stress test R94.39 Essential hypertension I10 Grade II diastolic dysfunction I51.89 Heart failure I50.9 Hyperlipidemia E78.5 Hypocalcemia E83.51 MILE (obstructive sleep apnea) G47.33 - Past Surgical History Surgical History: Past Surgical History (Last Updated 03/30/21 @ 07:25 by David Flores CRT, MISTY, BS) H/O vasectomy Z98.52 S/P CABG x 3 Onset Date: ~01/25/21 Z95.1 - Family History Summary Family History: Family History (Last Updated 12/30/20 @ 15:[address] Delmy Jacobsen, DO) Father CAD (coronary artery disease) Mother Diabetes Social History - Smoking History Smoking Status: Never smoker - Occupation Occupation (List type of work in comments):: Employed Hours worked per day:: 6 - part-time back to work and working from home. Returned to work on:: 03/08/21 - Hobbies, Recreation, Social Activities Hobbies: Sports - Fishing, Walking - 2-3 miles daily , Exercise, Other Recreational Activities: I am able to engage in most, but not all activities Social Environment - Status Marital Status: - Current Living Arrangements Living Environment:: Spouse - Children How many children do you have?: 4 Do any of your children live nearby?: Yes - Safety Do you feel safe in your surroundings?: Yes - Assistance Do you need any assistance at home?: no Review of Systems - Review of Systems Hints: Right click = Denies (Slash). Left click = Reports ([place]) Review of Present Symptoms: Reports: Shortness of Breath with Exertion - minimal when climbing the hill of [address] to the golf course get a little heavier to breath., Wound Healing, Appetite - Normal - starting to eatht eh way I am supposed to eat. 3 meals dauily cut out snacks., Sleep - Normal - feels more rested when waking in the morning, less tired when wakes. Now wakes when he is ready to start the day.. Denies: Operative Discomfort, Dizziness/Lightheadedness, Fatigue - each day feel gtetting stronger daily walking more (distance) in the last 3 weeks., Heart Arrhythmia/Irregularities, Sexual Changes - Pain Is Patient Pain Free?: Yes Pain Location: none Pain Level: 0/10 Risk Factor Assessment - Vital Signs Temperature: 97.3 F Respiratory Rate: 14 - 3 Pulse Ox: 98 Blood Pressure: 114/48 - Pulse Pulse Rate: 74 Pulse Rhythm: Regular - Hypertension Blood Pressure Sitting - Left Arm: 135/76 - Stress Stress: Work-related - not bothering me now, taking different approaches to the matter, reducing stress and maintaining it better. - Blood Cholesterol/Lipids Total Cholesterol (mg/dL) Goal = less than 200 mg/dL: 205 HDL Cholesterol (mg/dL) Goal = less than 40 mg/dL: 27 LDL Cholesterol (mg/dL) Goal = less than 70 mg/dL: 150 Triglycerides (mg/dL) Goal = less than 150 mg/dL: 138 - Obesity Height: 5 ft 8 in Weight:: 232 lb Weight in Pounds: 232.0 lbs Weight Source: Standing Scale Body Mass Index (BMI): 35.2 Nutritional Referral for Obesity: Yes - Physical Inactivity Physical Inactivity: Reg Exercise 30 min/day, Physically demanding job, Recreational activity - walking daily 2-3 miles - Risk Stratification Risk Guidelines: Lowest Risk: Risk Factor for Smoking, Risk Factor for Dyslipidemia, Risk Factor for Sedentary Lifestyle, Risk Factor for Depression, Moderate Risk: Risk Factor for Hypertension - Stage I Hypertension 114/48 today at rest., Highest Risk: Risk Factor for Obesity - Family History Family History: Family History (Last Updated 12/30/20 @ 15:[address] Delmy Jacobsen DO) Father CAD (coronary artery disease) Mother Diabetes Motivation - Motivation to Participate On a scale of 1 to 10, how prepared are you to commit to attending program?: 10 What do you see as barriers to successfully being able to complete the program?: no What do you see as the benefits of succesfully completing the program? In other words, what do you hope to get out of participating in the program?: Learning my boudaries/limits Are there issues you are dealing with that will interfere with completing the program?: no Do you have a spouse or signficant other, family or friends who will help support you to complete the program?: Yes
[2021-03-30 07:37] VITALS: BP 114/48; BP 135/76; PULSE 74; RESP 14; TEMP 36.3; O2SAT 98; BMI 35.2
[2021-03-30 08:02] VITALS: BP 135/76; BMI 36.5
== END ==
PROVIDERS: PCP Family Medicine
DX: I11.0 Hypertensive heart disease with heart failure (principal); E78.5 Hyperlipidemia, unspecified; G47.33 Obstructive sleep apnea (adult) (pediatric); E66.9 Obesity, unspecified; Z95.1 Presence of aortocoronary bypass graft; Z86.16 Personal history of COVID-19; Z68.35 Body mass index [BMI] 35.0-35.9, adult

== ENCOUNTER → 2021-04-02 08:38 | Outpatient (CLI) | payer OTHER, SELFPAY ==
[2021-03-30 08:02] VITALS: BMI 36.5
[2021-04-02 09:54] LABS: Anion Gap 4 (5-15); BUN 14 mg/dL (7-18); BUN/Creat Ratio 15.8 RATIO (10-20); Chloride 101 mmol/L (98-107); Creatinine, Serum 0.88 mg/dL (0.70-1.30); EST Glomerular Filtration Rate 95 mL/min (>60); Est Glom Filt Rate - Afr Amer 115 mL/min (>60); Glucose 106 mg/dL (74-106); Potassium 4.5 mmol/L (3.5-5.1); Sodium Level 133 mmol/L (136-145)
== END ==
PROVIDERS: PCP Family Medicine; Referring Provider Internal Medicine Nephrology; Visit Provider Internal Medicine Nephrology
DX: E87.1 Hypo-osmolality and hyponatremia (principal)
CPT/HCPCS: 36415; 80048

== ENCOUNTER 2021-04-16 08:00 | Outpatient (RCR) | payer OTHER, SELFPAY ==
[2021-03-30 08:02] VITALS: BMI 36.5
== END 2021-04-18 23:59 ==
LOC: CR 08:00
PROVIDERS: PCP Family Medicine
DX: I25.2 Old myocardial infarction (principal); Z95.1 Presence of aortocoronary bypass graft
CPT/HCPCS: 93798

== ENCOUNTER 2021-05-10 08:45 | Outpatient (RCR) | payer OTHER, SELFPAY ==
[2021-03-30 08:02] VITALS: BMI 36.5
== END 2021-05-18 23:59 ==
LOC: NS 08:45
PROVIDERS: PCP Family Medicine
DX: E66.9 Obesity, unspecified (principal); I10 Essential (primary) hypertension; E78.5 Hyperlipidemia, unspecified; Z68.35 Body mass index [BMI] 35.0-35.9, adult
CPT/HCPCS: 97802; 97803

== ENCOUNTER 2021-05-17 08:00 | Outpatient (RCR) | payer OTHER, SELFPAY ==
[2021-03-30 08:02] VITALS: BMI 36.5
--- NOTE | 2021-04-30 13:23 | CR.ITP_ITS ---
Diagnosis Exercise - 30-day Assessment - Visit Date of Eval: 04/30/21 Session #:: 13 - Physician Prescribed Exercise Modalities: Treadmill, Rower, Airdyne Frequency: 3x/week for 12 weeks [36 sessions] Intensity: 60-80% of age predicted maximum heart rate reserve Current METSs:: 6.0 increased from initial 4.0 Target Heart Rate:: 107-140 Current RPE:: 12-13 Maximum Excercise HR:: 147 Resting Blood Pressure: 122/70 Maximum Exercise Blood Pressure: 148/84 EKG Type: NSR to sinus tach w/rare PACs and PVCs, noted T wave inversion - Outcomes & Goals Goals:: Verbalizes understanding of THR, RPE & goal METS by session 6, Documents in home exercise log/reports 30 min aerobic 5 day/wk by DC, Demonstrates accurate pulse taking by DC - Intervention & Plan Exercise Program Goals: Instruct on personal THR & RPE, Instruct on MET level & personal MET goal, Show patient to take own pulse /validate performance until accurate, Instruct on home exercise - 30-day Reassessments 30 day Reassessments:: Progressing - Physical Activity Home Exercise Physical Activity - Home Exercise: Safe Exercise, Warm-up, Self-monitoring, Cool-Down, Home Exercise > 30 min Daily, Sitting Time <3 hours/daily - Outcomes & Goals Outcomes/Goals: Demonstrates correct Warm-up/exercise Cool-Down (S3) if = 2.5 METs, Verbalizes symptoms of exercise intolerance by Session 3 (S3), Demonstrate safe equipment use (S3) & follows exercise prescrition (6) - Intervention & Plan Plan/Intervention: Instruct warm-up & cool-down if exercising at > 2 METs, Instruct on symptoms of exercise intolerance & actions to take, Instruct & monitor on saf, Assess intial functional capacity & safety risk - 30-day Reassessments 30 day Reassessments:: Progressing Nutrition - Initial Assessment Nutrition - 30-Day Assessment - Program Goals Nutrition Program Goals: LDL <100 optimal. 100 - 129 Near optimal. 130 - 159 Borderline High. 160 - 189 High. Total Cholesterol <200 desirable. 200 - 239 Borderline High. >/= 240 High. HDL < 40 Low >/=60 High. Triglycerides <150 desirable. <199 optimal. VlDL 5 - 40. HgbA1C <7%. BMI <25 Patient has diagnosis of Hyperlipidemia (ICD E78)?: Yes - Visit Date of Assessment:: 04/30/21 Session #:: 13 - Cholesterol/Lipids Triglycerides (mg/dL): 138 Total Cholesterol (mg/dL): 205 LDL Cholesterol (mg/dL): 150 HDL Cholesterol (mg/dL): 27 Determine presence & major risk factors that modify LDL goal: Hypertension or hypertensive medication, Low HDL cholesterol <40 mg/dL*, Family history of premature CHD in Male < 55 years: female <65 yearsFa, Age men > 45 years; women >/= 55 years Outcomes/Goals: Pt IDs own risk factors & lifestyle modifications by Session 10, Verbalizes symptoms of angina & response by session 3., Pt independently manages Intervention/Plan: Instruct on personal lipid levels & lipid goals/NCEP guidelines, Instruct on cholesterol Referral to dietitian:: No - Met w/ Nutrition Services on 04/26/2021 30-day Reassessments:: Progressing - Diabetes (Other Core Measures) Diabetes Type: Not Applicable - Weight Mgt (Other Care) Not Applicable: No Height: 5 ft 8 in Weight:: 233 lb BMI: 35.4 Diagnosis Overweight/Obesity BMI> 30% ICD-10 E66: Yes Diagnosis High BMI/Morbid Obesity BMI> 35% ICD-10 Z68: Yes Outcomes/Goals: Pt sets, maintains & shows weight loss goal & trend during rehab Intervention/Plan: Instruct on ideal BMI & set weight loss goal w/patient, Assist pt to ID & incorporate diet changes for weight loss by S9, Encourage goal of using 250-300dcal per session for weight loss 30 day Reassessments:: Progressing - Healthy Eating Habits Will attend diet classes:: Yes Outcomes/Goals:: Consume diet rich in vegs,fruits,whole grain/high fiber,fish,lean meat, Limit sat/trans fats,cholesterol & added salts & sugars Intervention/Plan:: Assess current eating habits 30-day Reassessments:: Progressing - Education Gave educational materials for:: Healthy eating Nutrition - 60-Day Assessment Nutrition - 90-Day Assessment Nutrition - Final Assessment Medical - Initial Assessment Medical- 30-Day Assessment - Visit Date of Eval: 04/30/21 Session #:: 13 - Medication Compliance Preventative Medication(s):: Aspirin, Clopidogrel/P2Y12 inhibit, Statin/lipid, Beta tash H/O mental health issues: depression, anxiety, or addiction?: No Doesn?t believe in the benefits of treatment?: No Believes medications are unnecessary or harmful?: No Has a concern about medication side effects?: No Expresses concern over the cost of medications?: No Outcomes/Goals: Verbalizes medications,desired effect & common side effects @ DC, Pt self-reports following medication regimen, Keeps card in wallet w/medications listed by DC Interventions/plans: Instruct on medication effects & side effects, Review medication list w/patient every two weeks, Instruct importance of taking meds as ordered & assist problem solving 30-day Reassessments:: Progressing - Tobacco Use Tobacco Use: Non-smoker - Hypertension Hypertension Diagnosis:: Hypertension ICD-10 I10 Resting Blood Pressure:: 122/70 [place] [employer] Hypertension Guidelines: [place] [employer] Hypertension Guidelines. Normal BP Less than 120/80. Elevated BP 120/80. Hypertension Stage 1: BP 130-139/80-89. Hypertesnion Stage 2: BP 140 or higher/90 or higher. Hypertension Crisis: BP higher than 180/120 Peak Exercise Blood Pressure:: 148/84 Outcomes/Goals: Able to verbalize/achieve optimal blood pressure <130/80, Incorporates diet changes & exercise for blood pressure control by DC Interventions/plan: Instruct on optimal blood pressure, hypertension & medications, Instruct on effects of sodium, alcohol, stress, exercise &hypertension 30 day Reassessments:: Progressing - Tobacco Cessation Referral Smoking Cessation Referral:: No Individual Education/Counseling:: No Education Schedule Given:: Yes Medical- 60-Day Assessment Medical- 90-Day Assessment Medical - Final Assessment Psychosocial - Initial Assess Psychosocial - 30-Day Assess - VIsit Date of Eval: 04/30/21 Session #:: 13 Not Applicable: Yes History of previous Mental disease:: No - Psychosocial Test Tool Used:: PHQ-9 Questionnaire phq-9 Severity: Severity. 1-4 Minimal Depression. 5-9 Mild Depression. 10-14 Moderate Depression. 15-19 Moderately Sever Depression. 20-27 Severe Depression. Rule: - Referral to Behavioral Health PS - Interventions: Yes Attend Stress Management Classes, No Referral to [facility] if PHQ-9 score >9:, No Referral to [facility], No Referral to Physician if PHQ-9 if score is 5-9: - Outcomes/Goals: See list Psychosocial Outcomes/Goals:: ID's personal stressors & 2 strategies to manage stress by discharge - Intervention/Plan: See List Interventions/Plan:: Assess stressors,coping strategies & signs of derpression on admission, Instruct/assist pt to develop coping & personal stress Mgt strategies, Instruct patient to recognize signs & symptoms of depression, Instruct patient to recog - 30-day Reassessments: 30 day Reassessments:: Progressing Psychosocial - 60-Day Assess Psychosocial - 90-Day Assess Psychosocial - Final Assessmen Patient Health Questionnaire 30-Day Re-eval Assessment 1. Little interest or pleasure in doing things: Not at all 2. Feeling down, depressed, or hopeless: Not at all 3. Trouble falling or staying asleep, or sleeping too much: Not at all 4. Feeling tired or having little energy: Not at all 5. Poor appetite or overeating: Not at all 6. Feeling bad about yourself -- or that you are a failure or have let yourself or your family down: Not at all 7. Trouble concentrating on things, such as reading the newspaper or watching television: Not at all 8. Moving or speaking so slowly that other people could have noticed. Or the opposite - being so fidgety or restless that you have been moving around a lot more than usual: Not at all 9. Thoughts that you would be better off , or of hurting yourself in some way: Not at all How difficult have these problems made it for you to do your work, take care of things at home, or get along with other people?: Not difficult at all Total Score: 0 Self-Efficacy 30-Day Re-eval Assessment We would like to know how confident you are in doing certain activities. Please select your confidence level for:: Select your confidence level for the following using the scale 1-10 where 1 is not at all confident and 10 is totally confident. Your score is the average of all 6 responses. Fatigue: How confident are you that you can keep the fatigue caused by your disease from interfering with the things you want to do? Select Number: 9 Physical Discomfort or Pain: How confident are you that you can keep the physical discomfort or pain of your disease from interfering with the things you want to do? Select Number: 9 Emotional Distress: How confident are you that you can keep the emotional distress caused by your disease from interfering with the things you want to do? Select Number: 9 Other Symptoms or Health Problems: How confident are you that you can keep other symptoms or health problems from interfering with the things you want to do? Select Number: 9 Different Tasks and Activities: How confident are you that you can do the different tasks and activities needed to manage your health condition so as to reduce your need to see a doctor? Select Number: 9 Medication: How confident are you that you can do things other than just taking medication to reduce how much your illness affects your everyday life? Select Number: 9 Total Score:: 9 Nutrition Survey
[2021-04-30 13:30] VITALS: BP 122/70; BP 148/84; BMI 35.4
== END 2021-05-18 23:59 ==
LOC: CR 08:00
PROVIDERS: PCP Family Medicine
DX: I25.2 Old myocardial infarction (principal); Z95.1 Presence of aortocoronary bypass graft
CPT/HCPCS: 93798

== ENCOUNTER → 2021-05-25 08:07 | Outpatient (CLI) | payer OTHER, SELFPAY ==
[2021-04-30 13:30] VITALS: BMI 35.4
[2021-05-25 09:14] LABS: Anion Gap 6 (5-15); BUN 15 mg/dL (7-18); BUN/Creat Ratio 18.9 RATIO (10-20); Calcium,Total 8.9 mg/dL (8.5-10.1); Chloride 106 mmol/L (98-107); Creatinine, Serum 0.79 mg/dL (0.70-1.30); EST Glomerular Filtration Rate 108 mL/min (>60); Est Glom Filt Rate - Afr Amer 130 mL/min (>60); Glucose 117 mg/dL (74-106); Potassium 4.5 mmol/L (3.5-5.1); Sodium Level 139 mmol/L (136-145)
== END ==
PROVIDERS: PCP Family Medicine; Referring Provider Internal Medicine Nephrology; Visit Provider Internal Medicine Nephrology
DX: E87.1 Hypo-osmolality and hyponatremia (principal)
CPT/HCPCS: 36415; 80048

== ENCOUNTER 2021-06-09 08:30 | Outpatient (RCR) | payer OTHER, SELFPAY ==
[2021-04-30 13:30] VITALS: BMI 35.4
== END 2021-06-18 23:59 ==
LOC: NS 08:30
PROVIDERS: PCP Family Medicine
DX: E66.9 Obesity, unspecified (principal); I10 Essential (primary) hypertension; E78.5 Hyperlipidemia, unspecified; Z68.35 Body mass index [BMI] 35.0-35.9, adult
CPT/HCPCS: 97803

== ENCOUNTER 2021-06-14 08:00 | Outpatient (RCR) | payer OTHER, SELFPAY ==
[2021-04-30 13:30] VITALS: BMI 35.4
[2021-05-19 00:35] VITALS: BP 122/70; BP 148/84
--- NOTE | 2021-05-26 09:30 | CR.ITP_ITS ---
Diagnosis Exercise - 60-day Assessment - Visit Date of Eval: 05/26/21 Session #:: 23 - Physician Prescribed Exercise Modalities: Treadmill, Rower, Airdyne Frequency: 3x/week for 12 weeks [36 sessions] Intensity: 60-80% of age predicted maximum heart rate reserve Current METSs:: 7 Target Heart Rate:: 107-140 Current RPE:: 12 Maximum Excercise HR:: 147 Resting Blood Pressure: 120/80 Maximum Exercise Blood Pressure: 170/90 EKG Type: NSR to ST w/ T wave inversion. Rare PAC and PVC. - Outcomes & Goals Goals:: Verbalizes understanding of THR, RPE & goal METS by session 6, Documents in home exercise log/reports 30 min aerobic 5 day/wk by DC, Demonstrates accurate pulse taking by DC, Other additional outcome/goals: see below - Intervention & Plan Exercise Program Goals: Instruct on personal THR & RPE, Instruct on MET level & personal MET goal, Show patient to take own pulse /validate performance until accurate, Instruct on home exercise, Other additional plan/int - 30-day Reassessments 30 day Reassessments:: Progressing - Physical Activity Home Exercise Physical Activity - Home Exercise: Safe Exercise, Warm-up, Self-monitoring, Cool-Down, Home Exercise > 30 min Daily, Sitting Time <3 hours/daily - Outcomes & Goals Outcomes/Goals: Demonstrates correct Warm-up/exercise Cool-Down (S3) if = 2.5 METs, Verbalizes symptoms of exercise intolerance by Session 3 (S3), Demonstrate safe equipment use (S3) & follows exercise prescrition (6), Other: See below - Intervention & Plan Plan/Intervention: Instruct warm-up & cool-down if exercising at > 2 METs, Instruct on symptoms of exercise intolerance & actions to take, Instruct & monitor on saf, Assess intial functional capacity & safety risk, Other See below - 30-day Reassessments 30 day Reassessments:: Progressing Nutrition - Initial Assessment Nutrition - 30-Day Assessment Nutrition - 60-Day Assessment - Program Goals Nutrition Program Goals: LDL <100 optimal. 100 - 129 Near optimal. 130 - 159 Borderline High. 160 - 189 High. Total Cholesterol <200 desirable. 200 - 239 Borderline High. >/= 240 High. HDL < 40 Low >/=60 High. Triglycerides <150 desirable. <199 optimal. VlDL 5 - 40. HgbA1C <7%. BMI <25 Patient has diagnosis of Hyperlipidemia (ICD E78)?: Yes - Visit Date of Assessment:: 05/26/21 Session #:: 23 - Cholesterol/Lipids Determine presence & major risk factors that modify LDL goal: Hypertension or hypertensive medication, Low HDL cholesterol <40 mg/dL*, Family history of premature CHD in Male < 55 years: female <65 yearsFa, Age men > 45 years; women >/= 55 years Outcomes/Goals: Pt IDs own risk factors & lifestyle modifications by Session 10, Verbalizes symptoms of angina & response by session 3., Pt independently manages, Other Additional Outcomes/Goals: Intervention/Plan: Advocate for lipid panel cholesterol medication if applicable , Instruct on personal lipid levels & lipid goals/NCEP guidelines, Instruct on cholesterol, Other additional plan/int Referral to dietitian:: No 30-day Reassessments:: Progressing - Diabetes (Other Core Measures) Diabetes Type: Not Applicable - Weight Mgt (Other Care) Height: 5 ft 8 in Weight:: 107.501 kg BMI: 36.0 Diagnosis Overweight/Obesity BMI> 30% ICD-10 E66: Yes Outcomes/Goals: Pt sets, maintains & shows weight loss goal & trend during rehab, Other additional outcomes/goals Intervention/Plan: Instruct on ideal BMI & set weight loss goal w/patient, Assist pt to ID & incorporate diet changes for weight loss by S9, Refer to Structured Weight Loss program as appropriate, Encourage goal of using 250- 300dcal per session for weight loss, Other additional plan/interventions 30 day Reassessments:: Progressing - Healthy Eating Habits Will attend diet classes:: Yes Outcomes/Goals:: Consume diet rich in vegs,fruits,whole grain/high fiber,fish,lean meat, Limit sat/trans fats,cholesterol & added salts & sugars, Other additional outcome/goals: Intervention/Plan:: Assess current eating habits, Other Additional plan/interventions 30-day Reassessments:: Progressing - Education Gave educational materials for:: Signs & symptoms of hypoglycemia, Signs & symptoms of hyperglycemia, Relate diabetes to coronary artery disease, Healthy eating Nutrition - 90-Day Assessment Nutrition - Final Assessment Medical - Initial Assessment Medical- 30-Day Assessment Medical- 60-Day Assessment - Visit Date of Eval: 05/26/21 Session #:: 23 - Medication Compliance Preventative Medication(s):: Aspirin, Clopidogrel/P2Y12 inhibit, Statin/lipid, Beta tash H/O mental health issues: depression, anxiety, or addiction?: No Doesn?t believe in the benefits of treatment?: No Believes medications are unnecessary or harmful?: No Has a concern about medication side effects?: No Expresses concern over the cost of medications?: No Outcomes/Goals: Verbalizes medications,desired effect & common side effects @ DC, Pt self-reports following medication regimen, Keeps card in wallet w/medications listed by DC, Other additional outcome/goals: Interventions/plans: Instruct on medication effects & side effects, Review medication list w/patient every two weeks, Instruct importance of taking meds as ordered & assist problem solving, Other additional 30-day Reassessments:: Progressing - Tobacco Use Tobacco Use: Non-smoker - Hypertension Hypertension Diagnosis:: Hypertension ICD-10 I10 Resting Blood Pressure:: 120/80 [place] [employer] Hypertension Guidelines: [place] [employer] Hypertension Guidelines. Normal BP Less than 120/80. Elevated BP 120/80. Hypertension Stage 1: BP 130-139/80-89. Hypertesnion Stage 2: BP 140 or higher/90 or higher. Hypertension Crisis: BP higher than 180/120 Peak Exercise Blood Pressure:: 170/90 Outcomes/Goals: Able to verbalize/achieve optimal blood pressure <130/80, Incorporates diet changes & exercise for blood pressure control by DC, Other additional outcomes/goals Interventions/plan: Instruct on optimal blood pressure, hypertension & medications, Instruct on effects of sodium, alcohol, stress, exercise &hypertension, Other additional plan/interventions 30 day Reassessments:: Progressing - Tobacco Cessation Referral Smoking Cessation Referral:: No Individual Education/Counseling:: No Education Schedule Given:: Yes Medical- 90-Day Assessment Medical - Final Assessment Psychosocial - Initial Assess Psychosocial - 30-Day Assess Psychosocial - 60-Day Assess - VIsit Date of Eval: 05/26/21 Session #:: 23 History of previous Mental disease:: No - 30-day Reassessments: 30 day Reassessments:: Progressing Psychosocial - 90-Day Assess Psychosocial - Final Assessmen Patient Health Questionnaire 60-Day Re-eval Assessment 1. Little interest or pleasure in doing things: Not at all 2. Feeling down, depressed, or hopeless: Not at all 3. Trouble falling or staying asleep, or sleeping too much: Not at all 4. Feeling tired or having little energy: Not at all 5. Poor appetite or overeating: Not at all 6. Feeling bad about yourself -- or that you are a failure or have let yourself or your family down: Not at all 7. Trouble concentrating on things, such as reading the newspaper or watching television: Not at all 8. Moving or speaking so slowly that other people could have noticed. Or the opposite - being so fidgety or restless that you have been moving around a lot more than usual: Not at all 9. Thoughts that you would be better off , or of hurting yourself in some way: Not at all How difficult have these problems made it for you to do your work, take care of things at home, or get along with other people?: Not difficult at all Total Score: 0 Self-Efficacy 60-Day Re-eval Assessment We would like to know how confident you are in doing certain activities. Please select your confidence level for:: Select your confidence level for the following using the scale 1-10 where 1 is not at all confident and 10 is totally confident. Your score is the average of all 6 responses. Fatigue: How confident are you that you can keep the fatigue caused by your disease from interfering with the things you want to do? Select Number: 9 Physical Discomfort or Pain: How confident are you that you can keep the physical discomfort or pain of your disease from interfering with the things you want to do? Select Number: 9 Emotional Distress: How confident are you that you can keep the emotional distress caused by your disease from interfering with the things you want to do? Select Number: 9 Other Symptoms or Health Problems: How confident are you that you can keep other symptoms or health problems from interfering with the things you want to do? Select Number: 9 Different Tasks and Activities: How confident are you that you can do the different tasks and activities needed to manage your health condition so as to reduce your need to see a doctor? Select Number: 9 Medication: How confident are you that you can do things other than just taking medication to reduce how much your illness affects your everyday life? Select Number: 9 Total Score:: 9 Nutrition Survey
[2021-05-26 09:51] VITALS: BP 120/80; BP 170/90; BMI 36.0
== END 2021-06-18 23:59 ==
LOC: CR 08:00
PROVIDERS: PCP Family Medicine
DX: I25.2 Old myocardial infarction (principal); Z95.1 Presence of aortocoronary bypass graft
CPT/HCPCS: 93798

== ENCOUNTER 2021-07-07 08:31 | Outpatient (RCR) | payer OTHER, SELFPAY ==
[2021-05-26 09:51] VITALS: BMI 36.0
== END 2021-07-19 23:59 ==
LOC: NS 08:31
PROVIDERS: PCP Family Medicine
DX: I10 Essential (primary) hypertension (principal); E78.5 Hyperlipidemia, unspecified; Z68.35 Body mass index [BMI] 35.0-35.9, adult; E66.9 Obesity, unspecified
CPT/HCPCS: 97803

== ENCOUNTER 2021-07-09 10:58 | Outpatient (CLI) | payer OTHER, SELFPAY ==
[2021-05-26 09:51] VITALS: BMI 36.0
[2021-07-09 11:33] LABS: Anion Gap 1 (5-15); BUN 16 mg/dL (7-18); Calcium,Total 9.4 mg/dL (8.5-10.1); Chloride 101 mmol/L (98-107); Creatinine, Serum 0.84 mg/dL (0.70-1.30); EST Glomerular Filtration Rate 100 mL/min (>60); Est Glom Filt Rate - Afr Amer 122 mL/min (>60); Glucose 99 mg/dL (74-106); Potassium 4.7 mmol/L (3.5-5.1); Sodium Level 135 mmol/L (136-145)
== END 2021-07-09 23:59 | disposition short-term general hospital (02) ==
PROVIDERS: PCP Family Medicine; Visit Provider Family Medicine
DX: E87.1 Hypo-osmolality and hyponatremia (principal)
CPT/HCPCS: 36415; 80048

== ENCOUNTER → 2021-07-22 09:05 | Outpatient (CLI) | payer OTHER, SELFPAY ==
[2021-05-26 09:51] VITALS: BMI 36.0
[2021-07-22 11:03] LABS: Anion Gap 4 (5-15); BUN 18 mg/dL (7-18); BUN/Creat Ratio 20.9 RATIO (10-20); Calcium,Total 8.7 mg/dL (8.5-10.1); Chloride 103 mmol/L (98-107); Creatinine, Serum 0.86 mg/dL (0.70-1.30); EST Glomerular Filtration Rate 98 mL/min (>60); Est Glom Filt Rate - Afr Amer 118 mL/min (>60); Glucose 95 mg/dL (74-106); Potassium 4.4 mmol/L (3.5-5.1); Sodium Level 137 mmol/L (136-145)
== END ==
PROVIDERS: PCP Family Medicine
DX: I42.9 Cardiomyopathy, unspecified (principal)
CPT/HCPCS: 36415; 80048

== ENCOUNTER 2021-08-18 08:37 | Outpatient (RCR) | payer OTHER, SELFPAY ==
[2021-05-26 09:51] VITALS: BMI 36.0
== END 2021-09-16 23:59 ==
LOC: NS 08:37
PROVIDERS: PCP Family Medicine
DX: Z71.3 Dietary counseling and surveillance (principal); E78.5 Hyperlipidemia, unspecified; Z68.35 Body mass index [BMI] 35.0-35.9, adult; E66.9 Obesity, unspecified; I10 Essential (primary) hypertension
CPT/HCPCS: 97803

== ENCOUNTER → 2022-03-22 | Outpatient (CLI) | payer OTHER, SELFPAY ==
[2021-05-26 09:51] VITALS: BMI 36.0
[2022-03-22 12:18] LABS: Absolute Lymphocyte Count 1.57 X10^3/uL (0.83-4.51); Absolute Neutrophil Count 3.6 X10^3/uL (2.0-7.7); Eosinophils% 1.7 % (0-5); Lymphocyte # 1.57 X10^3/ul (0.83-4.51); Lymphocyte % 26.7 % (19-41); Mean Corp Hgb Conc 33.3 g/dL (32-36); Mean Corpuscular Hgb 30.8 pg (27.0-32.0); Mean Corpuscular Volume 92.3 fL (80-94); Mean Platelet Vol. 9.4 fl (6.2-12.0); Monocyte% 10.2 % (0-10); NRBC Flagged by Analyzer 0 % (0-5); Neutrophil # 3.58 X10^3/uL (2.7-7.7); Neutrophil % 61.1 % (47-70); Platelet Count 226 K/mm3 (150-450); RBC Distribution Width CV 12.6 % (11.6-14.6); RBC Distribution Width SD 42.6 fl (35.1-43.9); Red Blood Count 4.55 M/mm3 (4.6-6.2); White Blood Count 5.9 K/mm3 (4.4-11.0)
[2022-03-22 12:46] LABS: ALB/GLOB Ratio 1.1 RATIO (0.9-2.4); AST(SGOT) 21 U/L (15-37); Alanine Aminotransfer ALT/SGPT 31 U/L (16-61); Albumin, Serum 3.9 g/dL (3.2-5.0); Alkaline Phosphatase 86 U/L (45-117); Anion Gap 6 (5-15); BUN 16 mg/dL (7-18); BUN/Creat Ratio 18.8 RATIO (10-20); Chloride 104 mmol/L (98-107); Cholesterol 147 mg/dL (200); Creatinine, Serum 0.85 mg/dL (0.70-1.30); EST Glomerular Filtration Rate 99 mL/min (>60); Est Glom Filt Rate - Afr Amer 120 mL/min (>60); Globulin 3.4 g/dL (2.2-4.2); Glucose 117 mg/dL (74-106); High Density Lipoprotein 34 mg/dL; Potassium 4.5 mmol/L (3.5-5.1); Protein, Total 7.3 g/dL (6.4-8.2); Sodium Level 136 mmol/L (136-145); Triglycerides 120 mg/dL; Very Low Density Lipoprotein 24 mg/dL (5-40)
== END | disposition home or self-care (01) ==
LOC: BIMLAB 09:10
PROVIDERS: PCP Internal Medicine; Referring Provider Internal Medicine; Visit Provider Internal Medicine
DX: I10 Essential (primary) hypertension (principal); I25.10 Atherosclerotic heart disease of native coronary artery without angina pectoris
CPT/HCPCS: 36415; 80053; 80061; 85025

== ENCOUNTER → 2022-04-20 | Outpatient (CLI) | payer OTHER, SELFPAY ==
[2021-05-26 09:51] VITALS: BMI 36.0
--- NOTE | 2022-04-20 16:15 | RAD_ITS ---
INDICATION: cough, wheezing EXAMINATION/TECHNIQUE: X-RAY - XR Chest 2 Views COMPARISON: December 30, 2020 radiograph. December 31, 2020 CT FINDINGS: LINES/DEVICES: None. LUNGS: Hyperexpansion best seen on lateral view. No consolidation, edema or effusion. No pneumothorax. MEDIASTINUM AND CARDIOVASCULAR STRUCTURES: Cardiac silhouette not enlarged. BONES AND SOFT TISSUES: Sternotomy wires are midline and intact.. RAD/Chest PA and Lateral IMPRESSION: No radiographic evidence of acute cardiopulmonary disease. Hyperexpansion as can be seen with chronic obstructive pulmonary disease. Consider pulmonary function correlation Electronically Signed: Cody Borges MD at 1:05 EDT ,
[2022-04-20 16:37] LABS: Absolute Lymphocyte Count 0.79 X10^3/uL (0.83-4.51); Absolute Neutrophil Count 4.7 X10^3/uL (2.0-7.7); Eosinophil# 0.01 X10^3/uL; Eosinophils% 0.2 % (0-5); Hematocrit 32.1 % (40-54); Hemoglobin 11.6 g/dL (13.0-16.5); Lymphocyte # 0.79 X10^3/ul (0.83-4.51); Lymphocyte % 12.9 % (19-41); Mean Corp Hgb Conc 36.1 g/dL (32-36); Mean Corpuscular Hgb 31.7 pg (27.0-32.0); Mean Corpuscular Volume 87.7 fL (80-94); Mean Platelet Vol. 9.6 fl (6.2-12.0); Monocyte# 0.66 X10^3/uL; Monocyte% 10.8 % (0-10); NRBC Flagged by Analyzer 0 % (0-5); Neutrophil # 4.66 X10^3/uL (2.7-7.7); Neutrophil % 75.9 % (47-70); Platelet Count 152 K/mm3 (150-450); RBC Distribution Width CV 12.3 % (11.6-14.6); RBC Distribution Width SD 39.8 fl (35.1-43.9); Red Blood Count 3.66 M/mm3 (4.6-6.2); White Blood Count 6.1 K/mm3 (4.4-11.0)
[2022-04-20 17:00] LABS: Anion Gap 7 (5-15); BUN 18 mg/dL (7-18); BUN/Creat Ratio 18.3 RATIO (10-20); Calcium,Total 8.5 mg/dL (8.5-10.1); Chloride 92 mmol/L (98-107); Creatinine, Serum 0.98 mg/dL (0.70-1.30); EST Glomerular Filtration Rate 84 mL/min (>60); Est Glom Filt Rate - Afr Amer 101 mL/min (>60); Glucose 100 mg/dL (74-106); Potassium 3.4 mmol/L (3.5-5.1); Sodium Level 127 mmol/L (136-145)
== END | disposition home or self-care (01) ==
PROVIDERS: PCP Internal Medicine; Referring Provider Physician Assistant; Visit Provider Physician Assistant
DX: R05.9 Cough, unspecified (principal); R53.83 Other fatigue
CPT/HCPCS: 36415; 71046; 80048; 85025; 87635; U0003; U0005

== ENCOUNTER → 2022-04-25 | Outpatient (CLI) | payer OTHER, SELFPAY ==
[2021-05-26 09:51] VITALS: BMI 36.0
[2022-04-25 12:11] LABS: Absolute Lymphocyte Count 1.16 X10^3/uL (0.83-4.51); Absolute Neutrophil Count 4.8 X10^3/uL (2.0-7.7); Basophil# 0.01 X10^3/uL; Basophil% 0.1 % (0-1); Eosinophil# 0.12 X10^3/uL; Eosinophils% 1.8 % (0-5); Hemoglobin 13.2 g/dL (13.0-16.5); Lymphocyte # 1.16 X10^3/ul (0.83-4.51); Lymphocyte % 17.2 % (19-41); Mean Corp Hgb Conc 34.7 g/dL (32-36); Mean Corpuscular Hgb 31.3 pg (27.0-32.0); Mean Platelet Vol. 8.9 fl (6.2-12.0); Monocyte% 8.9 % (0-10); NRBC Flagged by Analyzer 0 % (0-5); Neutrophil # 4.81 X10^3/uL (2.7-7.7); Neutrophil % 71.3 % (47-70); Platelet Count 295 K/mm3 (150-450); RBC Distribution Width CV 12.3 % (11.6-14.6); RBC Distribution Width SD 40.1 fl (35.1-43.9); Red Blood Count 4.22 M/mm3 (4.6-6.2); White Blood Count 6.8 K/mm3 (4.4-11.0)
[2022-04-25 12:33] LABS: Anion Gap 6 (5-15); BUN 13 mg/dL (7-18); BUN/Creat Ratio 15.9 RATIO (10-20); Chloride 97 mmol/L (98-107); Creatinine, Serum 0.82 mg/dL (0.70-1.30); EST Glomerular Filtration Rate 104 mL/min (>60); Est Glom Filt Rate - Afr Amer 126 mL/min (>60); Glucose 101 mg/dL (74-106); Potassium 4.2 mmol/L (3.5-5.1); Sodium Level 131 mmol/L (136-145)
== END | disposition home or self-care (01) ==
LOC: BIMLAB 08:23
PROVIDERS: PCP Internal Medicine; Referring Provider Physician Assistant; Visit Provider Physician Assistant
DX: E87.1 Hypo-osmolality and hyponatremia (principal); E22.2 Syndrome of inappropriate secretion of antidiuretic hormone
CPT/HCPCS: 36415; 80048; 85025

== ENCOUNTER 2022-05-02 08:45 | Outpatient (CLI) | payer OTHER, SELFPAY ==
[2021-05-26 09:51] VITALS: BMI 36.0
[2022-05-02 12:24] LABS: Anion Gap 9 (5-15); BUN 14 mg/dL (7-18); BUN/Creat Ratio 16.8 RATIO (10-20); Chloride 101 mmol/L (98-107); Creatinine, Serum 0.83 mg/dL (0.70-1.30); EST Glomerular Filtration Rate 102 mL/min (>60); Est Glom Filt Rate - Afr Amer 123 mL/min (>60); Glucose 118 mg/dL (74-106); Potassium 4.2 mmol/L (3.5-5.1); Sodium Level 134 mmol/L (136-145)
== END 2022-05-02 23:59 | disposition home or self-care (01) ==
LOC: BIMLAB 08:46
PROVIDERS: PCP Internal Medicine; Referring Provider Physician Assistant; Visit Provider Physician Assistant
DX: E22.2 Syndrome of inappropriate secretion of antidiuretic hormone (principal)
CPT/HCPCS: 36415; 80048

== ENCOUNTER 2022-05-09 09:41 | Outpatient (CLI) | payer OTHER, SELFPAY ==
[2021-05-26 09:51] VITALS: BMI 36.0
--- NOTE | 2022-05-09 09:44 | ECHOCS_ITS ---
Reason For Study: s/p CABG Procedure This was a 2D Doppler, Color Flow transthoracic echocardiogram. The study was technically difficult. Contrast injection was performed. Exam performed in department. Left Ventricle Normal LV size. Mild concentric left ventricular hypertrophy. Moderate segmental systolic dysfunction (see wall motion). The estimated ejection fraction is 35 %. Septal motion consistent with IVCD. [place] : Severely Hypokinetic. Lateral [place] : Hypokinetic. Mid-Anterior : Severely Hypokinetic. Mid-anteroseptal : Severely Hypokinetic. The rest of the wall segments are normal. Right Ventricle Normal RV size. Normal systolic function. [place] Normal left atrium. Normal right atrium. Mitral Valve Mitral valve not well visualized. Tricuspid Valve Normal tricuspid valve. Aortic Valve Trisinus/trileaflet aortic valve. Pulmonic Valve The pulmonic valve is not well visualized. [place] Vessels Normal aortic root. The pulmonary artery is normal size. Normal inferior vena cava. Pericardium/Pleural No pericardial effusion. Medication 22 gauge I.V. with prn adaptor inserted into right arm. Diluted definity 4ml given slow IV push to enhance endocardial definition. MMode/2D Measurements & Calculations LVIDd: 5.0 cm IVSd: 1.2 cm Ao root diam: 3.8 cm LVIDs: 3.9 cm LVPWd: 1.3 cm LA dimension: 4.1 cm RVDd: 4.1 cm FS: 23.3 % LAV(MOD-bp): 68.7 ml LVAd ap4: 39.6 cm2 SV(MOD-sp4): 72.6 ml LAV(MOD-bp) Indexed: 30.7 ml/m2 LVLd ap4: 8.8 cm LAV(MOD-sp2): 69.5 ml EDV(MOD-sp4): 147.3 ml LAV(MOD-sp4): 68.1 ml EDV(sp4-el): 151.6 ml LVAs ap4: 26.6 cm2 LVLs ap4: 7.8 cm ESV(MOD-sp4): 74.7 ml ESV(sp4-el): 76.7 ml EF(MOD-sp4): 49.3 % EF(sp4-el): 49.4 % SV(sp4-el): 74.9 ml LA A4 area: 21.5 cm2 RA A4 area: 20.3 cm2 Time Measurements MV dec time: 0.25 sec Doppler Measurements & Calculations MV E max spike: 39.7 cm/sec Lat Peak E' Spike: 9.9 cm/sec Med Peak E' Spike: 8.9 cm/sec MV A max spike: 58.0 cm/sec E/E' lat: 4.0 E/E' med: 4.5 MV E/A: 0.68 MV V2 max: 69.9 cm/sec MV P1/2t max spike: 52.5 cm/sec Ao V2 max: 115.5 cm/sec MV max P.0 mmHg MV P1/2t: 96.8 msec Ao max P.3 mmHg MV V2 mean: 37.2 cm/sec Ao V2 mean: 81.2 cm/sec MV mean P.66 mmHg MV dec slope: 159.0 cm/sec2 Ao mean P.0 mmHg MV V2 VTI: 21.4 cm MVA(P1/2t): 2.3 cm2 Ao V2 VTI: 25.5 cm LV V1 max: 98.5 cm/sec PA V2 max: 88.5 cm/sec TR max spike: 218.2 cm/sec LV V1 max P.9 mmHg TR max P.1 mmHg LV V1 mean P.4 mmHg LV V1 mean: 73.0 cm/sec LV V1 VTI: 19.4 cm ECHO/Echo Complete W/ Contrast Interpretation Summary Normal LV size. Moderate segmental systolic dysfunction (see wall motion). The estimated ejection fraction is 35 %. Mild concentric left ventricular hypertrophy. Septal motion consistent with IVCD. Contrast injection was performed. Ordering Physician: Raj Barnett Referring Physician: Cydney Waddell Performed By: Joe Son RCS
== END 2022-05-09 23:59 | disposition home or self-care (01) ==
PROVIDERS: PCP Internal Medicine; Referring Provider Internal Medicine Cardiovascular Disease; Visit Provider Internal Medicine Cardiovascular Disease
DX: I51.7 Cardiomegaly (principal); Z95.1 Presence of aortocoronary bypass graft
CPT/HCPCS: 93306; Q9957; A4216; C8929

== ENCOUNTER 2022-05-19 11:00 | Outpatient (CLI) | payer OTHER, SELFPAY ==
[2021-05-26 09:51] VITALS: BMI 36.0
== END 2022-05-19 23:59 | disposition home or self-care (01) ==
LOC: SL 11:13
PROVIDERS: PCP Internal Medicine; Referring Provider Internal Medicine; Visit Provider Internal Medicine
DX: G47.10 Hypersomnia, unspecified (principal)
CPT/HCPCS: 95806

== ENCOUNTER → 2022-06-27 | Outpatient (CLI) | payer OTHER, SELFPAY ==
[2021-05-26 09:51] VITALS: BMI 36.0
[2022-06-27 12:52] LABS: Anion Gap 7 (5-15); BUN 17 mg/dL (7-18); BUN/Creat Ratio 20.7 RATIO (10-20); Calcium,Total 8.7 mg/dL (8.5-10.1); Chloride 103 mmol/L (98-107); Creatinine, Serum 0.82 mg/dL (0.70-1.30); EST Glomerular Filtration Rate 103 mL/min (>60); Est Glom Filt Rate - Afr Amer 125 mL/min (>60); Glucose 122 mg/dL (74-106); Potassium 4.2 mmol/L (3.5-5.1); Sodium Level 137 mmol/L (136-145); T4 Free Direct 0.77 ng/dL (0.76-1.46)
== END | disposition home or self-care (01) ==
LOC: BIMLAB 08:56
PROVIDERS: PCP Internal Medicine; Referring Provider Internal Medicine; Visit Provider Internal Medicine
DX: I10 Essential (primary) hypertension (principal)
CPT/HCPCS: 36415; 80048; 84439; 84443

== ENCOUNTER 2022-11-16 07:40 | Day surgery (SDC) | payer OTHER, SELFPAY ==
[2021-05-26 09:51] VITALS: BMI 36.0
[2022-11-16 08:03] VITALS: BP 116/75; PULSE 73; RESP 16; TEMP 36.1; O2SAT 98; BMI 38.9
--- NOTE | 2022-11-16 08:10 | RAD_ITS ---
STUDY: X-RAY - LEFT ELBOW REASON FOR EXAM: Male, 57 years old. LT DISTAL BICEPS REPAIR, POSS. ALLOGRAFT TECHNIQUE: 1 view(s) of the elbow. COMPARISON: None. FINDINGS: Intraoperative fluoroscopic services provided. RAD/Elbow 2 Views IMPRESSION: Intraoperative fluoroscopic services were provided. Electronically Signed: Zeyad Christina MD at 9:48 EDT ,
[2022-11-16] MEDS: Lactated Ringers 1,000 ML 15 ML IV (08:30)
[2022-11-16] MEDS: Cefazolin 2 GM in 0.9% Normal Saline 100 ML IV (09:05)
[2022-11-16] MEDS: Sugammadex Sodium 200 MG/2 ML VIAL IV (11:41)
--- NOTE | 2022-11-16 11:41 | OP.PCM_ITS ---
Problems Associated Problem List Diagnoses (1) Rupture of left distal biceps tendon: Report of Operation Date of Procedure: 11/16/22 Pre-Operative Diagnosis: chronic left distal biceps rupture Post-Operative Diagnosis: same Surgery/Procedure Performed:: repair left distal biceps tendon with allograft tissue tib ant Surgeon: Ifeanyi Middleton Type of Anesthesia: Block,Regional and General Anesthesiologist: Ritchie Salmon Estimated Blood Loss (mL): 50 Description of Procedure: Patient brought to the operating room theater. Placed supine on the table. Hand table to the patient's left side. General anesthesia induced. 2 g IV Ancef administered prior to the start of the procedure. 18 inch tourniquet applied to the left upper extremity appropriately padded. All bony prominences padded SCDs on the legs. Bed turned 90 degrees. Upper extremity prepped and draped in usual sterile fashion correction based prep solution lying over 3 minutes drying time prior to draping. Preoperative timeout performed to confirm the site the patient and surgery. Began by exsanguinating the limb inflating the tourniquet to 250 mmHg. Made a standard transverse incision 2 fingerbreadths below the level of the transverse elbow crease at the proximal volar forearm. Carried dissection down through skin and subcutaneous tissue to meticulous hemostasis. Protected the neurovascular bundle. Dissected proximally. The tendon was extremely retracted proximally try to mobilize this for about 20 minutes of this all the scar tissue but this was quite retracted proximally therefore had to extend the medial aspect of the incision in an L shaped fashion proximally up the medial aspect of the upper arm. Identified the distal end of the distal biceps. This was extremely scarred and took quite a bit more time than a typical acute biceps as this was a chronic tear over 4 weeks old. In addition to that there is tendon loss there is quite a short tendon stump at the end of the biceps of only about 2 cm. Musculotendinous junction was intact. Therefore I thawed a tibialis anterior allograft. I passed this first from deep to superficial at the musculotendinous junction and tubularized the tendon on both ends. I then did a sequential Pulvertaft type weave securing it using fiber tape sutures at each junction first from medial to lateral then anterior to posterior and then wrapping it around the lateral side and finally tying it back onto itself which achieved quite good purchase at the biceps muscle tendon junction. Left enough tendon distally to secure this under good tension appropriately. Released any adhesions. I next identified the radial tuberosity distally using intraoperative flu oroscopy and careful dissection. I cleared away any soft tissue from the tuberosity. I passed the spade tip drill bit bicortically with the arm in full supination. Then I overreamed the proximal end with 8 mm reamer and cleared away any bone dust irrigation thoroughly. I then used the whipstitch circumferential suture with a Darryl needle in the Arthrex kit 5 sutures and then tubularized again the end of the tendon. Locked it distally. This measures 8 mm. I passed the sutures in either direction through the button. Button was passed to the far cortex flipped and then the tendon delivered in appropriate tension with the arm at about 30 degrees of flexion. Repair was solid. Then I passed 1 end of the suture back through the tendon lock this as well as inserting the biocomposite screw 8 mm in diameter screw from the arthrex biceps kit. This achieved solid purchase. Final radiographs taken saved onto the system. Tourniquet let down wound thoroughly irrigated hemostasis achieved. Subcutaneous tissue closed with 2-0 Vicryl suture skin with 3-0 Monocryl. Steri-Strips after the wound was thoroughly cleaned followed by Adaptic 4 x 4 gauze ABD and sterile cast padding with a posterior fiberglass splint with the arm in 90 degrees of flexion overwrapped with 4 inch Ranjith bandage loosely wrapped in a sling. Patient woken up from the general anesthesia transfer off the operating table and taken to postanesthetic care unit in stable condition. All sponge needle instrument counts were correct no complications. Plan for the patient discharged home occurring today surgical arterial follow-up in the office in 2 days time. bill modifier for extra time Complications none Admit VTE Documentation VTE Present on Admission: No VTE Mechan Device Prophylaxis: SCD's VTE Pharm Prophylaxis ordered?: No Reason prophylaxis not ordered:: Treatment Not Indicated Procedures Musculoskeletal 20xxx-29xxx: Other Procedure See Report
--- NOTE | 2022-11-16 11:51 | DCINST_ITS ---
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 Discharge Plan Admission Attending Provider: Ifeanyi Middleton Primary Care Provider: Cydney Waddell Discharge Orders/Prescriptions Prescriptions: New oxycodone-acetaminophen [Endocet] 5-325 mg tablet 1 tab PO Q4H MDD 6 PRN (Reason: pain) 5 Days Qty: 20 0RF No Action cholecalciferol (vitamin D3) 10 mcg (400 unit) capsule 10 mcg PO DAILY albuterol sulfate 90 mcg/actuation HFA aerosol inhaler 1 puff inhalation Q6H PRN (Reason: shortness of breath or wheezing) Qty: 8.5 0RF lisinopril 20 mg tablet 20 mg PO QHS atorvastatin 80 mg Tablet 80 mg PO QHS Qty: 30 2RF aspirin 81 mg Tablet,Chewable 81 mg PO BREAKFAST Qty: 0 0RF carvedilol 25 mg tablet 12.5 mg PO BID Qty: 180 3RF Rx Instructions: must administer with a meal/food Referrals / Follow Up: Cydney Waddell MD [Primary Care Provider] - Ifeanyi Middleton MD [Med Staff - Active Staff] - Disposition Disposition (needs filled in before D/C Order can be placed): Home, Self Care
[2022-11-16 11:54] VITALS: BP 105/72; BP 116/75; PULSE 59; RESP 17; TEMP 35.8; O2SAT 97
[2022-11-16 12:00] VITALS: BP 105/69; BP 116/75; PULSE 79; RESP 16; O2SAT 96
[2022-11-16 12:15] VITALS: BP 106/67; BP 116/75; PULSE 80; RESP 16; TEMP 36; O2SAT 94
[2022-11-16 12:50] VITALS: BP 104/63; BP 116/75; PULSE 88; RESP 18; TEMP 36.6; O2SAT 94
[2022-11-16] MEDS: HYDROcodone Bitartrate/Apap 5/325 Tablet PO (12:58)
--- NOTE | 2022-11-18 07:59 | HP.PCM_ITS ---
HPI - General HPI Narrative MARISA HYATT, is a 57 M who presents for repair left chronic distal biceps. No changes to h and P. ok to proceed. patient seen AM of surgery, elbow marked. explained rab and post op recovery, narcotic counselling. no further concerns or questions. R#: [id number] Acct: [id number] Name:MARISA CASTANEDA Jr. Rep #: [id number] : 1965 ? ? Provider: Dr. Ifeanyi Middleton MD Age/Sex:? 57/M ? ? [place] [facility] [place] Status: Signed Intake Intake Visit Reasons:?left elbow Chief Complaint: 3 m f/u chronic conditions.? Left arm pain. Is patient in pain?: Yes Allergies No Known Allergies Allergy (Verified 11/03/22 08:03) Medications aspirin 81 mg chewable tablet 81 mg PO BREAKFAST #0 tabs 01/02/21 [Rx Confirmed 11/03/22] atorvastatin 80 mg tablet 80 mg PO QHS #30 tabs 01/02/21 [Rx Confirmed 11/03/22] cholecalciferol (vitamin D3) 10 mcg (400 unit) capsule 10 mcg PO DAILY 08/20/21 [History Confirmed 11/03/22] albuterol sulfate 90 mcg/actuation aerosol inhaler 1 puff inhalation Q6H PRN shortness of breath or wheezing #8.5 grams 04/20/22 [Rx Confirmed 11/03/22] carvedilol 25 mg tablet 12.5 mg PO BID #180 tabs 06/01/22 [Rx Confirmed 11/03/22] sacubitril 49 mg-valsartan 51 mg tablet (Entresto) 1 tab PO BID #180 tabs 10/20/22 [Rx Confirmed 10/24/22] spironolactone 25 mg tablet tablet PO 10/20/22 [History Confirmed 11/03/22] clopidogrel 75 mg tablet 75 mg PO DAILY 10/24/22 [History Confirmed 11/03/22] lisinopril 20 mg tablet 20 mg PO QHS 11/03/22 [History Confirmed 11/03/22] PFSH Medical History? Atherosclerosis of coronary artery without angina pectoris Essential hypertension Grade II diastolic dysfunction Hyperlipidemia Hypersomnolence Hypocalcemia Ischemic cardiomyopathy Left upper arm pain Obesity MILE (obstructive sleep apnea) Rupture of left distal biceps tendon Surgical History? H/O coronary artery bypass surgery (01/25/21) H/O vasectomy Family History? Father CAD (coronary artery disease)Mother Diabetes Social History? adopted:? No household members:? spouse housing:? house current occupational status:? 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 No sexually active:? Yes Smoking Status:? Never smoker alcohol intake:? current details:? maybe drink a night or 2 well-balanced diet:? daily or most days caffeine:? Yes eating out:? rarely or never what type of physical activity do you participate in:? walking kevon/mosque:? Other seatbelt use:? always do you feel safe at home:? Yes HPI left elbow Details: Parts of this documentation were recorded by a scribe, this documentation accurately reflects the service provided and the decisions made by me, Dr. Ifeanyi Middleton MD 11/03/22 0802. MARISA HYATT is a 57 year old M here today for? FU MRI left elbow assess for chronic distal biceps tear.? Patient is feeling little bit more sore today has been trying to use it but the biceps feels balled up Ortho Exam General General: Yes no acute distress Neurologic: Yes alert and Yes oriented x3 Psychologic: Yes reasonable and appropriate Supplemental Info MRI left elbow distal biceps with retraction, complete tear. \ The report from 11/01/2022 shows a high-grade and retracted biceps tendon tear 7 cm. Coding Level of Care Code Off vis,est,level 4 Diagnoses Rupture of left distal biceps tendon? S46.212A Assessment and Plan Assessment and Plan (1) Rupture of left distal biceps tendon: ?Status:?Acute ?Plan: 57 M about 5 weeks out now from left distal biceps tear with retraction 7cm. The options are the same as last time nonoperative management with gradual return to normal activities in the subsequent loss and more supination strength but also flexion strength less so.? Surgery has its onset of risks and complications.? May need an allograft tissue to bridge the gap although typically able to get this repaired with the elbow in slight amount of flexion.? The results are a little bit less reliable with being a chronic repair and less ideal patient understands this and wishes to go ahead. 1-2 weeks for desk work, 4-6 months before heavy lifting, slowed down if allograft used. Pros and cons risks and benefits were discussed with the patient including but not limited to infection, pain, stiffness, bleeding, damage to surrounding structures, neurovascular injury, recurrence or retear, failure or wear of hardware or fixation, instability, fracture, deep vein thrombosis and pulmonary embolism, anesthetic risks, , patient dissatisfaction, need for further surgery and other risks, PIN 1% with 1/3rd permanent wrist drop, 7% LABC.? Patient understood and wished to proceed with surgery, and signed the informed consent documentation. Will try to expedite cardiac clearance and do the case within 1-2 weeks. [facility] Medical History (Updated 11/09/22 @ 10:15 by Ade Urbina) Alcohol use Atherosclerosis of coronary artery without angina pectoris [facility] Cardiology follow-up encounter Essential hypertension Grade II diastolic dysfunction High cholesterol History of echocardiogram History of heart attack History of stress test Hyperlipidemia Hypersomnolence Hypocalcemia Ischemic cardiomyopathy Left upper arm pain Loss of hearing Non-smoker Obesity MILE (obstructive sleep apnea) Rupture of left distal biceps tendon Home Medications aspirin 81 mg chewable tablet 81 mg PO BREAKFAST #0 tabs 01/02/21 [Rx Last Taken Unknown] atorvastatin 80 mg tablet 80 mg PO QHS #30 tabs 01/02/21 [Rx Last Taken Unknown] cholecalciferol (vitamin D3) 10 mcg (400 unit) capsule 10 mcg PO DAILY 08/20/21 [History Last Taken Unknown] albuterol sulfate 90 mcg/actuation aerosol inhaler 1 puff inhalation Q6H PRN shortness of breath or wheezing #8.5 grams 04/20/22 [Rx Last Taken Unknown] carvedilol 25 mg tablet 12.5 mg PO BID #180 tabs 06/01/22 [Rx Last Taken 11/16/22] lisinopril 20 mg tablet 20 mg PO QHS 11/03/22 [History Last Taken Unknown] oxycodone-acetaminophen 5 mg-325 mg tablet (Endocet) 1 tab PO Q4H PRN pain 5 days #20 tabs 11/16/22 [Rx Last Taken Unknown] Allergy/AdvReac Type Severity Reaction Status Date / Time No Known Allergies Allergy Verified 11/16/22 08:02 Family History Father CAD (coronary artery disease) Mother Diabetes Surgical History (Updated 11/09/22 @ 10:15 by Ade Urbina) H/O coronary artery bypass surgery (01/25/21) H/O vasectomy History of cardiac catheterization Social History adopted: No household members: spouse housing: house current occupational status: employed 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
== END 2022-11-16 13:19 | disposition home or self-care (01) ==
LOC: SDC 07:40 → AC 07:41
PROVIDERS: PCP Internal Medicine; Visit Provider Orthopaedic Surgery Sports Medicine
PROC: (CPT 24341; principal; 2022-11-16 08:55)
DX: S46.212A Strain of muscle, fascia and tendon of other parts of biceps, left arm, initial encounter (principal); I25.10 Atherosclerotic heart disease of native coronary artery without angina pectoris; Z79.82 Long term (current) use of aspirin; E78.5 Hyperlipidemia, unspecified; I25.5 Ischemic cardiomyopathy; I10 Essential (primary) hypertension; G47.33 Obstructive sleep apnea (adult) (pediatric)
CPT/HCPCS: 24341; 01710; 73070; 76000; J7120; J2405

== ENCOUNTER → 2023-01-02 | Outpatient (CLI) | payer OTHER, SELFPAY ==
[2021-05-26 09:51] VITALS: BMI 36.0
[2023-01-02 12:26] LABS: Absolute Lymphocyte Count 1.44 X10^3/uL (0.83-4.51); Basophil# 0.01 X10^3/uL; Basophil% 0.2 % (0-1); Eosinophil# 0.11 X10^3/uL; Eosinophils% 2.1 % (0-5); Hematocrit 39.1 % (40-54); Hemoglobin 13.5 g/dL (13.0-16.5); Lymphocyte # 1.44 X10^3/ul (0.83-4.51); Lymphocyte % 27.9 % (19-41); Mean Corp Hgb Conc 34.5 g/dL (32-36); Mean Corpuscular Hgb 31.8 pg (27.0-32.0); Mean Platelet Vol. 9.2 fl (6.2-12.0); Monocyte# 0.55 X10^3/uL; Monocyte% 10.7 % (0-10); NRBC Flagged by Analyzer 0 % (0-5); Neutrophil # 3.04 X10^3/uL (2.7-7.7); Neutrophil % 58.9 % (47-70); Platelet Count 211 K/mm3 (150-450); RBC Distribution Width CV 12.8 % (11.6-14.6); Red Blood Count 4.25 M/mm3 (4.6-6.2); White Blood Count 5.2 K/mm3 (4.4-11.0)
[2023-01-02 12:45] LABS: ALB/GLOB Ratio 1.2 RATIO (0.9-2.4); AST(SGOT) 16 U/L (15-37); Alanine Aminotransfer ALT/SGPT 29 U/L (16-61); Albumin, Serum 3.8 g/dL (3.2-5.0); Alkaline Phosphatase 100 U/L (45-117); Anion Gap 6 (5-15); BUN 15 mg/dL (7-18); BUN/Creat Ratio 18.6 RATIO (10-20); Calcium,Total 8.8 mg/dL (8.5-10.1); Chloride 104 mmol/L (98-107); Cholesterol 141 mg/dL (200); Creatinine, Serum 0.81 mg/dL (0.70-1.30); EST Glomerular Filtration Rate 105 mL/min (>60); Est Glom Filt Rate - Afr Amer 127 mL/min (>60); Globulin 3.3 g/dL (2.2-4.2); Glucose 122 mg/dL (74-106); High Density Lipoprotein 33 mg/dL; PSA,Total - Annual Screen 0.54 ng/mL (0.00-4.00); Potassium 4.3 mmol/L (3.5-5.1); Protein, Total 7.1 g/dL (6.4-8.2); Sodium Level 135 mmol/L (136-145); Triglycerides 116 mg/dL; Very Low Density Lipoprotein 23 mg/dL (5-40)
[2023-01-03 09:40] LABS: Hemoglobin A1c 5.5 % (3.8-5.6)
== END | disposition home or self-care (01) ==
LOC: BIMLAB 08:33
PROVIDERS: PCP Internal Medicine; Referring Provider Internal Medicine; Visit Provider Internal Medicine
DX: Z00.00 Encounter for general adult medical examination without abnormal findings (principal); I10 Essential (primary) hypertension; R73.9 Hyperglycemia, unspecified; E78.5 Hyperlipidemia, unspecified
CPT/HCPCS: 36415; 80053; 80061; 83036; 84153; 85025; G0103

== ENCOUNTER 2023-02-07 07:30 | Outpatient (RCR) | payer OTHER, SELFPAY ==
[2021-05-26 09:51] VITALS: BMI 36.0
--- NOTE | 2022-12-08 13:51 | HP.PTEVAL ---
Patient's Visit Information MARISA HYATT Jr. is a 57 year old M referred to Physical Therapy by Dr. Ifeanyi Middleton MD with a diagnosis of STRAIN OF MUSCLE ,FASCAI AND TENDON OF OTHER PARTS OF BICEP. Date of Evaluation: 12/08/22 Physical Therapist: Soham Castillo, PT, Cert MDT, OCS - Visit Plan Frequency: 1-2x /Week Duration: 8weeks Plan: S/P DISTAL BICEP REPAIR WITH ALLOGRAFT. PT INTERVENTIONS ROM OKAY FOR FULL FLEXION ,EXTENSION 70 DEGREES BY 3 WEEKS ,50 DEGRRES BY WEEK 5 ,30 DEGREES WEEK 7 ,15 BY WEEK 8 ,0 DEGRRES BY WEEK 10, MANUAL THERAPY THEN PROGRESS TO STRENGTHENING PER MD - Subjective This 57 y/o male presents to physical therapy with right rupture distal tendon. Patient tore bicep lateral on September 30 had MRI and underwent s/p repair left distal biceps tendon with allograft tissue tib anterior on November 16 at [facility] . Patient d/c in sift cast seen DR 1 week lateral placed in brace at 90 degrees . Patient return to DR in December .Patient denies paresthesia/tingling . Patient sleeping okay. Patient right hand dominant. Patient has limitations with all functional activities and self hygiene. Patient goal return to prior level of function. Patient condition affects QOL . SOCAIL: . 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 NEURO: denies paresthesia/tingling ,reflexes intact. INSCION: well approximate. PROM: elbow flexion 120 degrees , 70 degrees of extension. AROM: shoulder flexion 150 degrees ,abduction 150 degrees. MMT: ( peak force) 0- NT. DOCUMENTATION LEAD STRENGTH: NT - Balance/Special Test Scores Quick DASH Score: 68.1800 - Goals Goal 1:: I with HEP for shoulder Goal Time Frame: 8-12 Weeks Goal 2:: Patient to improve AROM elbow flexion 0-130 degrees to improve ADLS and self hygiene Goal Time Frame: 8-12 Weeks Goal 3:: Patient to demonstrate 75 % improvement with improved function return prior level. Goal Time Frame: 8-12 Weeks Goal 4:: Patient to improve peak force by 30 -40 # to improve function and ADLS, . Goal Time Frame: 8-12 Weeks Goal 5:: Patient to improve quick dash by by 10 -15 points to improve function and return to prior level of function Goal Time Frame: 8-12 Weeks - Rehabilitation Potential Physical Therapy Diagnosis: This patient tore bicep thus underwent allograft repair of distal bicep with decrease ROM and strength impairs ADLS and housework thus will benefit from skilled PT Rehabilitation Potential: Good - Anticipated Interventions Patient/Client Instruction: Educate patient on: Condition, Plan of Care For the Purpose of:: To decrease pain, To increase ROM, To improve muscle performance and motor function, To improve ability to perform ADL's, To increase tolerance to activity/condition/position, To improve ability of physical actions for home/community/work/leisure, To improve health of tissue, To decrease soft tissue restriction, To increase flexibility/ROM Therapeutic Exercise to Include: Strength training, Postural training, Flexibilty training, Active ROM, Dynamic Lumbar Stabilization For the Purpose of:: To decrease pain, To increase ROM, To improve muscle performance and motor function, To increase tolerance to activity/condition/position, To improve ability of physical actions for home/community/work/leisure, To improve health of tissue, To decrease soft tissue restriction, To increase flexibility/ROM, To prevent re-injury Manual Therapy Techniques to Include: Passive ROM For the Purpose of:: To increase ROM, To decrease soft tissue restriction, To increase flexibility/ROM Thank you for the opportunity to evaluate your patient. For Medicare and Medicare HMO plans, please review the plan of care and approve it. It will need to be FAXED BACK to us at [phone] for Medicare purposes. For Medicare only, by signing this I certify the plan of care. Please let me know if there are questions or concerns regarding this plan of care. Physician Signature: Date:
== END 2023-02-07 19:00 | disposition home or self-care (01) ==
LOC: PT 07:30
PROVIDERS: PCP Internal Medicine; Referring Provider Orthopaedic Surgery Sports Medicine; Visit Provider Orthopaedic Surgery Sports Medicine
DX: S46.212D Strain of muscle, fascia and tendon of other parts of biceps, left arm, subsequent encounter (principal)
CPT/HCPCS: 97110; 97140; 97162

== ENCOUNTER → 2023-07-10 | Outpatient (CLI) | payer OTHER, SELFPAY ==
[2021-05-26 09:51] VITALS: BMI 36.0
--- OUTSIDE RECORDS SUMMARY | 2023-07-10 12:09 | XMS RPT_ITS | CCD ---
Author Name Unknown Address [address] [place] [address] [address] [place] [address] Organization [facility] Care Team Providers Care Cardiopulmonary Technician And Eeg Tech Name Role Phone Jaky Kennedy Primary Care Provider WILMAR SUMNER Attending JENNIFER Pierre Primary Care Unavailable WILMAR SUMNER Attending JENNIFER Pierre Primary Care Unavailable Unavailable Primary Care Provider Unavailabl e JAKY KENNEDY Attending Unavail able JAKY KENNEDY Primary Care Unavail able JENNIFER MOTTA Attending Unavailable JENNIFER MOTTA Primary Care Unavailable Medications Current Medications Medication Drug Class(es) Dates Sig (Normalized) Sig (Original) multivit-min/vit C/herb no.124 (AIRBORNE GUMMY ORAL) (1 source) multivit-min/vit C/herb no.124 (AIRBORNE GUMMY ORAL) Take by mouth daily . 0 Active Problems Problem Classification Problem Date Documented Da te Episodic/Chronic Inflammation; infection of eye (except that caused by tuberculosis or sexually transmitteddisease) (1 source) Keratitis; Translations: [Actinic keratitis] Onset: 02-20-2020 02-20-2020 Episodic Other lower respiratory disease (2 sources) Snoring; Translations: [Snoring] Onset: 02-20-2020 02-20-2020 Episodic Other nutritional; endocrine; and metabolic disorders (2 sources) Obesity; Translations: [Class 2 obesity without serious comorbidity with body mass index (BMI) of 39.0 to 39.9 in adult, unspecified obesity type] Onset: 02-20-2020 02-20-2020 Chronic Other skin disorders (1 source) Skin lesion; Translations: [Skin lesion] Episodic Results Test Name Value Interpretation Reference Range Facil ity Vital Signs Date Time Vital Sign Value Performing Clinician Naomie howe 01-26-2021 06:56-0400 SaO2% (BldA) [Mass fraction] 94 % [facility] Encounters Encounter Date Encounter Type Care Provider Facility Start: 08-04-2021 ambulatory JENNIFER MOTTA [facility] Start: 06-23-2021 End: 06-23-2021 Subsequent hospital visit by physician Angel Lee Work Phone: [facility] Procedures Date Procedure Procedure Detail Performing Clinician Start: 01-29-2021 Antibody screen Plan of Treatment Date Care Activity Detail Author Start: 02-19-2021 Depression screening using PHQ-9 (Patient Health Questionnaire 9) score Depression Screening (PHQ9) [facility] Start: 02-18-2020 Influenza vaccination given Se quential Influenza Vaccine (#1) [facility] Start: 02-10-2016 Administration of he rpes zoster vaccine Zoster Vaccines (1 of 2) [facility] Start: 02-10-1984 Hepatitis C antibody , confirmatory test Hepatitis C Screening [facility] Start: 1981 HIV screening HIV Screening [facility] Start: 1969 History and physical examination, annual for health maintenance Wellness Visit [facility] Start: 1966 Prostate specific an tigen measurement PSA Level [facility] Start: 1966 Screening for malign ant neoplasm of colon Colorectal Cancer Screening: Colonoscopy [facility] Start: 1966 Tetanus vaccination Tetanus: Every 1 0yrs [facility] Payers Date Payer Category Payer Unknown [employer] PPO [id number] 2018-Present [id number] 2018 Unknown [id number] 1966 Unknown [id number] 1966 Unknown [id number] 1966 Unknown [id number] 1966 Unknown [id number] Social History Date Type Detail Facility Start: 02-20-2020 Tobacco smoking stat [facility] Never smoker [facility] Start: 02-20-2020 Tobacco use and exposure Never used [facility] Start: 02-20-2020 Alcohol intake Current drinke r of alcohol (finding) [facility] Start: 02-20-2020 History SDOH Alcohol Frequency 5 [facility] Start: 02-20-2020 History SDOH Alcohol Std Drinks 1 [facility] Start: 1965 Sex Assigned At Not on file [facility] Exposure to SARS-CoV -2 (event) Not sure [facility] Tobacco smoking stat [facility] Tobacco smoking consumption unknown [facility] Progress note 09-20-2021 Note Date & Type Note Facility 09-20-2021 Note HNO ID: [id number] Author: Isabell Ramirez MA Service: ? Author Type: Flat Folder Type: Progress Notes Filed: 03/18/2022 10:55 AM Note Text: Summary: 09-20-[address] BARLOW from [facility] 09-20-[address] BARLOW from [facility] Primary Provider: DR Rambo Lee History of Present Illness: 56-year-old male with a history of hypertension hyperlipidemia family history of coronary artery disease ELVER who was initially feeling not well with fatigue and sweating went to [facility] found to have a sodium of 118 and also found to have low EF around 30% and transferred to [facility] found to have multivessel disease had a CABG on 01/25/2021 with a FRANCIS to LAD, right radial to the distal RCA, SVG to OM1. Echocardiogram done on 01/12/2021 shows EF around 40%. Grade 2 diastolic dysfunction mild AI PI and TR. Echocardiogram done on 05/10/2021 still having EF around 35%. Echocardiogram done in 08/12/2021 shows EF 35 to 40% with a septal hypokinesis and mild inferior wall hypokinesis and anteroseptal hypokinesis. Mildly dilated left atrium and right atrium. Mild tricuspid regurgitation with RVSP 30 to 35 mmHg. LDL February. Patient is taking aspirin 81, Lipitor 80, Plavix 75, Coreg 6.25, lisinopril 10, Aldactone 12.5 mg. Patient is unable to increase the guideline directed medical therapy because of the low blood pressures when he increase the Coreg to 12.5 mg. Patient denies any symptoms of chest pain shortness of breath orthopnea PND pedal edema dizziness syncope. Blood pressure in the office is 128/84 pulse rate 74. Rest of the review the systems are negative. Past Medical History: Reviewed history from 07/22/2021 and no changes required: HTN, cardiomyopathy (EF27%), HPL, and SIADH, HF and CAD [place] MILE obesity Past Surgical History: Reviewed history from 07/22/2021 and no changes required: out pt surgery 05-26-21 DATE OF SERVICE: 01/25/2021 PREOPERATIVE DIAGNOSIS: Multi-vessel coronary artery disease with moderately to severely depressed ejection fraction. POSTOPERATIVE DIAGNOSIS: Multi-vessel coronary artery disease with moderately depressed ejection fraction of 40%. OPERATION: 1. Coronary artery bypass grafting x3 using left internal mammary artery to left anterior descending, right radial artery to distal right coronary artery, reverse saphenous vein graft to obtuse marginal. 2. Endoscopic vein harvesting. 3. Transesophageal echocardiography. 4. Endoscopic radial artery harvesting. Echocardiogram Report Findings: Interpretation Summary 56-year-old gentleman with a history of hypertension, hyperlipidemia, status post coronary bypass surgery in January 2021 Patient is sinus rhythm at 66 bpm with a blood pressure of 116/70 Normal left ventricular dimensions with visually estimated ejection fraction of 35-40 % with septal hypokinesis and mild inferior wall hypokinesis and anteroseptal hypokinesis Left atrium is mildly dilated 22 cm? Right atrium is mildly dilated 21 cm? Mild tricuspid regurgitation Right ventricular systolic pressure 30-35 mmHg The left ventricular size, thickness and function are normal. Ejection Fraction = 35-40%. Reviewed/Verified By: MD Sarah 08/13/2021 01:43 PM Ordering Physician: Eunice Ricardo Risk Factors: Exercise: no Vital Signs: Patient Profile: 56 Years Old Male Height: 68 inches Weight: 245 pounds BMI: 37.25 O2 Sat: 97 % Pulse rate: 74 / minute BP Sittin / 84 (left arm) Cuff size: large Problems: Active problems were reviewed with the patient during this visit. Medications: Medications were reviewed with the patient during this visit. Allergies: Allergies were reviewed with the patient during this visit. Vitals Entered By: Isabell Ramirez (September 20, 2021 9:27 AM) Review of Systems See HPI Physical Exam General: well developed, well nourished, in no acute distress Head: normocephalic and atraumatic Neck: no masses, thyromegaly, or abnormal cervical nodes Lungs: clear bilaterally to A AND P Heart: regular rate and rhythm, S1, S2 without murmurs, rubs, gallops, or clicks Abdomen: bowel sounds positive; abdomen soft and non-tender without masses, organomegaly, or hernias noted Pulses: pulses normal in all 4 extremities Extremities: no clubbing, cyanosis, edema, or deformity noted with normal full range of motion of all joints Neurologic: no focal deficits, CN II-XII grossly intact with normal reflexes, coordination, muscle strength and tone Psych: alert and cooperative; normal mood and affect; normal attention span and concentration Detailed Cardiovascular Exam Neck Carotids: Carotids full and equal bilaterally without bruits. Neck Veins: Normal, (more content not included)... [facility] Clinical Note 01-29-2021 Note Date & Type Note Facility 01-29-2021 Note [facility] Clinical Note 01-27-2021 Note Date & Type Note Facility 01-27-2021 Note Physical Therapy Inpatient Evaluation Medical Diagnosis: s/p CABG x 3 on 01/25/[address] Talbert Therapy Diagnosis: Rank Code Description 1 M62.81 Muscle weakness (generalized) 2 R26 Abnormalities of gait and mobility 3 R06.02 Shortness of breath 4 G89.1 Acute pain, not elsewhere classified Demographics: Age: 55Y Gender: Male Primary Language: Azerbaijani Preferred Language: Azerbaijani Referring Service/Team: Medicine Past Medical History: per medical charting* hypertension, cardiomyopathy, HPL, SIADH, CHF, CAD History of Present Illness: Date of Surgery: 01/25/21 Additional Information: *per medical charting* This is a 55-year-old, , male, with past medical history significant for hypertension, cardiomyopathy, HPL, SIADH, CHF, CAD who presented to Dr. Talbert's office for surgical evaluation. Patient was not feeling well several weeks prior to referral to the office and was admitted to [facility] where he was found to have hyponatremia secondary to SIADH, CAD, and cardiomyopathy with decreased EF. Date of Admission: 01/25/2021 6:00:00 AM Rehabilitation Precautions/Restrictions: sternal precautions, chest tube, Sp02 > 92% currently on 4L 02, [facility]/Testing Results from Chart: chest xray 01/27: IMPRESSION: 1. Interval extubation and removal of the enteric tube. 2. Diminished lung volumes with improved left perihilar/left upper lobe atelectasis. 3. No pneumothorax. SUBJECTIVE Prior Level of Functioning: Indoor Mobility: Patient completed the activities by him/herself, with or without an assistive device, with no assistance from a helper. [facility] PATIENT NAME: STEVEN HYATT [address] MEDICAL REC #: [id number] [place] [address] ADMIT DATE: 01/25/21 SERVICE DATE: 01/27/21 Physical Therapy Assessment Report ATTENDING PHY: Kandace Talbert MD Stairs: Patient completed the activities by him/herself, with or without an assistive device, with no assistance from a helper. Pt reports he was ind with all ADLs, shares IADLs with , denies use of AD and was working and driving [employer]. Prior Device Use: Performance GG110. Prior Device None of Above Yes Patient/Caregiver Goals: Patient's functional goals: go home Pain: Patient currently has pain. Location: incisional pain, chest tube insertion Type: Acute Quality: Aching. Stabbing. Pain Scale: Visual Analog (VAS). Patient reports a pain level of 5 out of 10. Patient's acceptable level of pain 0 out of 10. Interferes with physical activity. Pain is alleviated by: Pain is exacerbated by: Interventions: Repositioned patient. Patient medicated. prior to tx Home Environment: Patient lives with his (works but taking next week off) , who is able to assist patient at discharge. Patient lives in a single family home. Home is two levels. Patient is not required to manage stairs within the home. First floor full bathroom setup available. There are 2 steps to enter the home, with unilateral handrailing Equipment Owned: None. Social History: Marital Status: Children: Patient has no children. 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 Orientation: Oriented to person, place, time, and situation. Following Commands: Patient is able to follow 3-step commands. Range of Motion Upper Extremity: Not within functional limits see OT Lower Extremity: Grossly within functional limits Strength Upper Extremity: Not within functional limits MMT deferred to maintain sternal precautions Lower Extremity: Not within functional limits grossly 4/5 [facility] PATIENT NAME: STEVEN HYATT [address] [place] MEDICAL REC #: [id number] [place] [address] ADMIT DATE: 01/25/21 SERVICE DATE: 01/27/21 Physical Therapy Assessment Report ATTENDING PHY: Kandace Talbert MD Tone/Spasticity: Within Functional Limits throughout. Sensation: Grossly intact. Balance: Static balance in a seated position is good. Dynamic balance in a seated position is good. Static balance in a standing position is fair. Dynamic balance in a standing position is fair. Therapeutic/Functional Activities: Bed Mobility: Not assessed. Transfers: Patient transferred sit to/from stand requiring supervision. No equipment was used. stood to FWW and supervision, v/c for hand placement and sternal precautions Locomotion/Gait/Ambulation: Patient was supervision with gait/ambulation for 55' x 2 . Patient requires the following assistive device(s): Rolling walker. decreased gait speed, limited stride length, guarded movements with increased pain reported Gait Deviations: (more content not included)... [facility] Clinical Note 01-27-2021 Note Date & Type Note Facility 01-27-2021 Note Occupational Therapy Inpatient Evaluation Medical Diagnosis: s/p CABG x [address] Talbert on 01/25/21 OCCUPATIONAL PROFILE AND HISTORY Therapy Diagnosis: Rank Code Description 1 Z74.1 Need for assistance with personal care 2 R06.02 Shortness of breath 3 R07.9 Chest pain, unspecified Demographics: Age: 55Y Gender: Male Primary Language: Azerbaijani Preferred Language: Azerbaijani Referring Service/Team: Cardiology Past Medical History: per medical charting* hypertension, cardiomyopathy, HPL, SIADH, CHF, CAD History of Present Illness: 01/25/21 Additional Information: *per medical charting* This is a 55-year-old, , male, with past medical history significant for hypertension, cardiomyopathy, HPL, SIADH, CHF, CAD who presented to Dr. Talbert's office for surgical evaluation. Patient was not feeling well several weeks prior to referral to the office and was admitted to [facility] where he was found to have hyponatremia secondary to SIADH, CAD, and cardiomyopathy with decreased EF. Date of Admission: 01/25/2021 6:00:00 AM Rehabilitation Precautions/Restrictions: sternal precautions, chest tube, Sp02 > 92% currently on 4L 02, Ray Imaging/Testing Results from Chart: chest xray 01/27: IMPRESSION: 1. Interval extubation and removal of the enteric tube. 2. Diminished lung volumes with improved left perihilar/left upper lobe atelectasis. 3. No pneumothorax. Prior Level of Functioning: Self Care: Patient completed the activities by him/herself, with or without an assistive device, with no assistance from a helper. Functional Cognition: Patient completed the activities by him/herself, with or [facility] PATIENT NAME: STEVEN HYATT JR [address] [place] MEDICAL REC #: [id number] [place] [address] ADMIT DATE: 01/25/21 SERVICE DATE: 01/27/21 Occupational Therapy Assessment ATTENDING PHY: Kandace Talbert MD without an assistive device, with no assistance from a helper. Pt reports he was ind with all ADLs, shares IADLs with , denies use of AD and was working and driving [employer]. Patient/Caregiver Goals: Patient's functional goals: go home Pain: Patient currently has pain. Location: chest tube site Type: Acute Quality: Aching. Pain Scale: Visual Analog (VAS). Patient reports a pain level of 5 out of 10. Patient's acceptable level of pain 0 out of 10. Interferes with physical activity. Pain is alleviated by: Pain is exacerbated by: Interventions: Repositioned patient. Home Environment: Patient lives with his (works but taking next week off) , who is able to assist patient at discharge. Patient lives in a single family home. Home is two levels. Patient is not required to manage stairs within the home. First floor full bathroom setup available. walk in shower There are 2 steps to enter the home, with 1 grab bar Equipment Owned: shower seat Marital Status: M Social History: Children: Patient has no children. 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[employer] Recreational Activities/Hobbies: fishing, camping, outdoors OBJECTIVE/OCCUPATIONAL PERFORMANCE Activities of Daily Living Current Status Previous Status ADLs Feeding Independent - Grooming Supervision - Bathing-UE Minimal assistance - Bathing-LE Moderate assistance - Dressing-UE Minimal assistance - Dressing-LE Moderate assistance - Toileting Minimal assistance - AM-PAC Daily Activities: Putting On/Taking Off Lower Body Clothing: A little help needed Bathing:: A little help needed Toileting: A little help needed Putting On/Taking Off Upper Body Clothing: A little help needed Grooming: No help needed [facility] PATIENT NAME: STEVEN HYATT JR [address] [place] MEDICAL REC #: [id number] [place] [address] ADMIT DATE: 01/25/21 SERVICE DATE: 01/27/21 Occupational Therapy Assessment ATTENDING PHY: Kandace Talbert MD Eating a Meal: No help needed Raw Score = 20 , AM-PAC t-Scale Score = 42.03 and G-Code Modifier = CJ Functional Mobility: Bed Mobility: Not assessed. Transfers: Patient transferred sit to/from stand requiring supervision. able to maintain sternal precautions Locomotion/Gait/Ambulation: Patient was supervision with gait/ambulation for 55'x2 . Patient requires the following assistive device(s): Rolling walker. limited by pain and fatigue Sp02 maintain > 98% and heart rate in the low 90s BPM during mobility. Range of Motion Upper Extremity: Grossly within functional limits shoudler ROM to 90* only to maintain sternal precautions Strength Upper Extremity: Not within functional limits MMT deferred to maintain sternal precautions Balance: Dynamic balance in a seated position is good. Dynamic balance in a standing position is good. wit (more content not included)... [facility] Reason for Referral Status Reason Specialty Diagnoses / Procedures Referred By Contact Referred To Contact Authorized Specialty Services Required/Patien t's Best Interest Dermatology Diagnoses Skin lesion Jaky Kennedy MD [address] [place] [id number] Jose Tapia MD [address] [place] [id number] History of Present Illness * Jaky Kennedy MD - 02/20/2020 8:46 AM EDT [facility] Tonja Jeffers [address] [place] [id number] Steven Hyatt 1965 [id number] HPI: This 55-year-old male presents as a new patient to the practice. States that his health overall is quite favorable but has some concerns. He has had some skin lesions with liquid nitrogen remotely and notices a right upper forehead lesion present for several months. No bleeding. No significant discomfort or itching. Because it remains crusty he is concerned. No past history of skin cancer. He has a history of numerous sebaceous cystson his scalp lipoma behind his neck on the right side. He has not seen a physician for several years. Apparently through his workplace he had some blood work less than a year ago and will access that for our review. He reports a history of low HDL cholesterol but denies diabetes despite it being present in his family. 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 Has never been evaluated for MILE. Has not undergone colon cancer screening and does not recall ever having PSA. He is adamantly against flu vaccine and we have discussed shingles vaccination. Medications: Current Outpatient Medications Medication Sig Dispense Refill multivit-min/vit C/herb no.124 (AIRBORNE GUMMY ORAL) Take by mouth daily . No current facility-administered medications for this visit. Allergies: No Known Allergies Problem List Items Addressed This Visit Other Obesity Snoring Other Visit Diagnoses Skin lesion - Primary Relevant Orders Ambulatory referral to Dermatology Social History Socioeconomic History Marital status: Spouse name: Not on file Number of children: Not on file Years of education: Not on file Highest education level: Not on file Occupational History Not on file Social Needs Financial resource strain: Not on file Food insecurity Worry: Never true Inability: Never true Transportation needs Medical: Not on file Non-medical: Not on file Tobacco Use Smoking status: Never Smoker Smokeless tobacco: Never Used Substance and Sexual Activity Alcohol use: Yes Frequency: 4 or more times a week Drinks per session: 1 or 2 Binge frequency: Never Drug use: Never Sexual activity: Yes control/protection: None Lifestyle Physical activity Days per week: Not on file Minutes per session: Not on file Stress: Not on file Relationships Social connections Talks on phone: More than three times a week Gets together: Not on file Attends zoroastrian service: Not on file Active member of club or organization: Not on file Attends meetings of clubs or organizations: Not on file Relationship status: Not on file Other Topics Concern Not on file Social History Narrative Not on file ROS: Does not feel ill currently. Admits to gaining 25 pounds over the past 3 years. No history of cardiovascular disease. No history of thyroid disease. He does have his tonsils. No wheezes or rales. No past history of murmur. Abdomen is the site of his weight gain. No history of gallstone diseaseor kidney stones. Nocturia x1. No visualized blood in stool. No problems with peripheral edema. Vision and Hearing: Uses no assistive devices. No obvious deficits Physical Exam: Vitals: 02/20/20 0844 02/20/20 0847 BP: (!) 149/89 (!) 138/91 Pulse: 78 83 Temp: 97.8 F (36.6 C) TempSrc: Infrared SpO2: 96% Weight: 116.4 kg (256 lb 11.2 oz) Height: 5' 7.5 Patient is quite obese. His neck is very large no thyroid enlargement is noted. Lungs are clear without crackles or wheezes. Cardiac rhythm without murmurs or ectopic beats. Abdomen obese and difficult to examine. Minimal lower extremity edema without pitting. Crusty keratoses on his right forehead approximately 4 mm in diameter. No ulceration or raised border. Several modest sized cysts present on the top of his head and a modest sized lipoma is present just right of center in his neck. Impression/Plan: Suspect actinic keratoses. We discussed options including topical Efudex versus observation but patient prefers dermatology referral. We discussed his scalp cyst but no plans to remove at this point. I suspect obstructive sleep apnea but patient does not want to pursue such at this time. I suggest reviewing his labs for lipid panel, blood sugar. I have suggested PSA and colon cancer screening of some type and he wants to consider this before consenting. I tried to dispel some of his this conceptions regarding influenza vaccine. For any new medications prescribed today, patient was educated about indications for the medication, how to take the medication and potential side effects of the medications. Return if symptoms worsen or fail to improve. Jaky Kennedy MD Depression Screening 02/20/2020 Little interest or pleasure in doing things 0 Feeling down, depressed, or hopeless 0 PHQ-2 Total Score 0 Trouble falling or staying asleep, or sleeping too much 0 Feeling tired or having little energy 1 Poor appetite or overeating 0 Feeling bad about yourself - or that you are a failure or have let yourself or your family down 0 Trouble concentrating on things, such as reading the newspaper or watching television 0 Moving or speaking so slowly that other people could have noticed. Or the opposite - being so fidgety or restless that you have been moving around a lot more than usual 0 Thoughts that you would be better off , or of hurting yourself in some way 0 PHQ-9 Total Score 1 If you checked off any problems, how difficult have these problems made it for you to do your work,take care of things at home, or get along with other people? 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 Advance Directives and Living Will Summary Purpose Family History No Family History Records FoundNo Family History Records FoundNo Family History Records FoundNo Family History Records Found Additional Source Comments Reason for Visit (unrecogniz ed section and content) (unrecognized sect ion and content) No Status Records FoundNo Status Records FoundNo Status Records FoundNo Status Records Found INFORMATION SOURCE (unrecogn ized section and content) DATE CREATED AUTHOR AUTHOR'S ORGANIZ ATION 09/01/2021 [facility] [place] DATE CREATED AUTHOR AUTHOR'S ORGANIZ ATION 09/04/2021 [facility] DATE CREATED AUTHOR AUTHOR'S ORGANIZ ATION 03/25/2022 [facility] Source Comments (unrecognize d section and content) In the event this informatio n is protected by the Federal Confidentiality of Alcohol and Drug Abuse Patient Records regulations: The Federal rules restrict any use of the information to criminally investigate or prosecute any alcohol or drug abuse patient.[facility] FOR RECORDS PERTAINING TO PATIENTS WHO ARE OR HAVE BEEN ENROLLED IN A CHEMICAL DEPENDENCY/SUBSTANCEABUSE PROGRAM, SOME INFORMATION MAY BE OMITTED. This clinical summary was aggregated from multiple sources. Caution should be exercised in using it in the provision of clinical care. This summary normalizes information from multiple sources, and as a consequence, information in this document may materially change the coding, format and clinical context of patient data. In addition, data may be omitted in some cases. CLINICAL DECISIONS SHOULD BE BASED ON THE PRIMARY CLINICAL RECORDS. [facility]. provides no warranty or guarantee of the accuracy or completeness of information in this document.
[2023-07-10 13:20] LABS: Anion Gap 5 (5-15); BUN 18 mg/dL (7-18); BUN/Creat Ratio 24.8 RATIO (10-20); Calcium,Total 8.8 mg/dL (8.5-10.1); Chloride 104 mmol/L (98-107); Creatinine, Serum 0.73 mg/dL (0.70-1.30); EST Glomerular Filtration Rate 118 mL/min (>60); Est Glom Filt Rate - Afr Amer 143 mL/min (>60); Glucose 124 mg/dL (74-106); Potassium 4.4 mmol/L (3.5-5.1); Sodium Level 137 mmol/L (136-145)
== END | disposition home or self-care (01) ==
LOC: BIMLAB 10:28
PROVIDERS: PCP Internal Medicine; Referring Provider Internal Medicine; Visit Provider Internal Medicine
DX: I11.0 Hypertensive heart disease with heart failure (principal); I50.9 Heart failure, unspecified
CPT/HCPCS: 36415; 80048

== ENCOUNTER → 2023-08-11 | Outpatient (CLI) | payer OTHER, SELFPAY ==
[2021-05-26 09:51] VITALS: BMI 36.0
--- NOTE | 2023-08-11 07:47 | ECHOCS_ITS ---
Reason For Study: CHF Procedure This was a 2D Doppler, Color Flow transthoracic echocardiogram. Contrast injection was performed. Exam performed in department. Left Ventricle Normal LV size. The estimated ejection fraction is 50 %. Mild to moderate segmental systolic dysfunction (see wall motion). Pisek : Akinetic. Lateral Pisek : Severely Hypokinetic. Mid-Anterior : Hypokinetic. Mid-anteroseptal : Hypokinetic. Right Ventricle Normal RV size. Normal systolic function. Atria Normal left atrium. Normal right atrium. Mitral Valve Normal mitral valve. Tricuspid Valve Normal tricuspid valve. Aortic Valve Trisinus/trileaflet aortic valve. Pulmonic Valve Normal pulmonic valve. Great Vessels Normal aortic root. The pulmonary artery is normal size. Normal inferior vena cava. Pericardium/Pleural No pericardial effusion. Medication Diluted definity 2.5ml given slow IV push to enhance endocardial definition. MMode/2D Measurements & Calculations LVIDd: 4.4 cm IVSd: 1.2 cm Ao root diam: 3.1 cm LVIDs: 3.6 cm LVPWd: 1.1 cm RVDd: 3.9 cm FS: 19.0 % LAV(MOD-bp): 44.1 ml LVAd ap4: 28.2 cm2 SV(MOD-sp4): 42.6 ml LAV(MOD-bp) Indexed: 19.3 ml/m2 LVLd ap4: 8.4 cm LAV(MOD-sp2): 33.3 ml EDV(MOD-sp4): 79.1 ml LAV(MOD-sp4): 56.1 ml EDV(sp4-el): 80.6 ml LVAs ap4: 18.5 cm2 LVLs ap4: 7.8 cm ESV(MOD-sp4): 36.4 ml ESV(sp4-el): 37.4 ml EF(MOD-sp4): 53.9 % EF(sp4-el): 53.6 % SV(sp4-el): 43.3 ml LA A4 area: 20.2 cm2 LA dimension(2D): 4.7 cm RA A4 area: 15.6 cm2 Time Measurements MV dec time: 0.27 sec Doppler Measurements & Calculations MV E max spike: 46.3 cm/sec Lat Peak E' Spike: 10.8 cm/sec Med Peak E' Spike: 7.1 cm/sec MV A max spike: 73.9 cm/sec E/E' lat: 4.3 E/E' med: 6.5 MV E/A: 0.63 MV dec slope: 173.8 cm/sec2 Ao V2 max: 134.6 cm/sec LV V1 max: 105.8 cm/sec Ao max P.3 mmHg LV V1 max P.5 mmHg Ao V2 mean: 104.7 cm/sec Ao mean P.6 mmHg Ao V2 VTI: 28.3 cm PA V2 max: 89.1 cm/sec TR max spike: 221.0 cm/sec TR max P.5 mmHg ECHO/Echo Complete W/ Contrast Interpretation Summary Normal LV size. The estimated ejection fraction is 50 %. Mild to moderate segmental systolic dysfunction (see wall motion). Contrast injection was performed. Compared to previous study, the left ventricu lar systolic function has improved.. Ordering Physician: Cydney Waddell Referring Physician: Cydney Waddell Performed By: Ashlee David, HEATHER, RVT
--- OUTSIDE RECORDS SUMMARY | 2023-08-11 07:54 | XMS RPT_ITS | CCD ---
Author Name Unknown Address [address] [place] [address] [address] [place] [address] Organization [facility] Care Team Providers Care Anodic Treater Name Role Phone Jaky Kennedy Primary Care [...] 06:56-0400 SaO2% (BldA) [Mass fraction] 94 % [facility] [place] Encounters Encounter Date Encounter Type Care Provider Facility Start: 08-04-2021 ambulatory JENNIFER MOTTA [facility] Ambulatory Start: 06-23-2021 End: 06-23-2021 Subsequent hospital visit by physician Angel Lee Work Phone: [facility] Procedures Date Procedure Procedure Detail Performing Clinician Start: 01-29-2021 Antibody screen Plan of Treatment Date Care Activity Detail Author Start: 02-19-2021 Depression screening using PHQ-9 (Patient Health Questionnaire 9) score Depression Screening (PHQ9) [facility] Start: 02-18-2020 Influenza vaccination given Se quential Influenza Vaccine (#1) [facility] Start: 02-10-2016 Administration of he rpes zoster vaccine Zoster Vaccines (1 of 2) [facility] Start: 02-10-1984 Hepatitis C antibody , confirmatory test Hepatitis C Screening [facility] Start: 1981 HIV screening HIV Screening [facility] Start: 1969 History and physical examination, annual for health maintenance Wellness Visit [facility] Start: 1966 Prostate specific an tigen measurement PSA Level [facility] Start: 1966 Screening for malign ant neoplasm of colon Colorectal Cancer Screening: Colonoscopy [facility] Start: 1966 Tetanus vaccination Tetanus: Every 1 0yrs [facility] Payers Date Payer Category Payer Unknown [employer] PPO [id number] 2018-Present [id number] 2018 Unknown [id number] 1966 Unknown [id number] 1966 Unknown [id number] 1966 Unknown [id number] 1966 Unknown [id number] Social History Date Type Detail Facility Start: 02-20-2020 [facility] Start: 02-20-2020 Tobacco use and exposure Never used [facility] Start: 02-20-2020 Alcohol intake Current drinke r of alcohol (finding) [facility] Start: 02-20-2020 History SDOH Alcohol Frequency 5 [facility] Start: 02-20-2020 History SDOH Alcohol Std Drinks 1 [facility] Start: 1965 Sex Assigned At Not on file [facility] Exposure to SARS-CoV -2 (event) Not sure [facility] Tobacco smoking stat [facility] Tobacco smoking consumption unknown [facility] Progress note 09-20-2021 Note Date & Type Note Facility 09-20-2021 Note HNO ID: [id number] Author: Isabell Ramirez MA Service: ? Author Type: Stone [employer] Sander Type: Progress Notes Filed: 03/18/2022 10:55 AM Note Text: Summary: 09-20-[address] BARLOW from [facility] 09-20-[address] BARLOW from [facility] Primary Provider: DR Rambo Lee History of Present Illness: 56-year-old male with a history of hypertension hyperlipidemia family history of coronary artery disease [place] who was initially feeling not well with fatigue and sweating went to [facility] found to have a sodium of 118 and also found to have low EF around 30% and transferred to [facility] found to have multivessel disease had [...] Neck Veins: Normal, (more content not included)... [facility] Clinical Note 01-29-2021 Note Date & Type Note Facility 01-29-2021 Note [facility] Chuyita john Conley Clinical Note 01-27-2021 Note Date [...] Demographics: Age: 55Y Gender: Male Primary Language: Paraguayan Preferred Language: Paraguayan Referring Service/Team: Medicine Past Medical History: per [...] device, with no assistance from a helper. [facility] PATIENT NAME: STEVEN HYATT [address] Faria MEDICAL REC #: [id number] [place] [address] ADMIT DATE: 01/25/21 SERVICE DATE: 01/27/21 Physical Therapy Assessment Report ATTENDING PHY: Kandace Talbert MD Stairs: Patient completed the activities by him/herself, with or without an assistive device, with no assistance from a helper. 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 Prior Device Use: Performance GG110. Prior Device [...] Children: Patient has no children. 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 Faria MEDICAL REC #: [id number] [place] [address] ADMIT DATE: 01/25/21 SERVICE DATE: 01/27/21 Physical [...] reported Gait Deviations: (more content not included)... [facility] Clinical Note 01-27-2021 Note Date & Type Note Facility 01-27-2021 Note Occupational Therapy Inpatient Evaluation Medical Diagnosis: s/p CABG x [address] Talbert on 01/25/21 OCCUPATIONAL PROFILE AND HISTORY Therapy Diagnosis: Rank Code Description 1 Z74.1 Need for assistance with personal care 2 R06.02 Shortness of breath 3 R07.9 Chest pain, unspecified Demographics: Age: 55Y Gender: Male Primary Language: Paraguayan Preferred Language: Paraguayan Referring Service/Team: Cardiology Past Medical History: per [...] completed the activities by him/herself, with or [facility] PATIENT NAME: STEVEN HYATT JR [address] Faria MEDICAL REC #: [id number] [place] [address] ADMIT DATE: 01/25/21 SERVICE DATE: 01/27/21 Occupational Therapy Assessment ATTENDING PHY: Kandace Talbert MD without an assistive device, with no assistance from a helper. 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 Patient/Caregiver Goals: Patient's functional goals: go home [...] Children: Patient has no children. 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 Faria MEDICAL REC #: [id number] [place] [address] ADMIT DATE: 01/25/21 SERVICE DATE: 01/27/21 Occupational [...] is good. wit (more content not included)... [facility] Reason for Referral Status Reason Specialty Diagnoses / Procedures Referred By Contact Referred To Contact Authorized Specialty Services Required/Patien t's Best Interest Dermatology Diagnoses Skin lesion Jaky Kennedy MD [address] [place] [address] Jose Tapia MD [address] [place] [id number] History of Present Illness * Jaky Kennedy MD - 02/20/2020 8:46 AM EDT [facility] Primary [facility] Physicans Tonja Jeffers [address] [place] [address] Steven Hyatt 1965 [id number] HPI: This 55-year-old male presents as a [...] he snores but he denies symptoms of 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 Advance Directives and Living Will [...] DATE CREATED AUTHOR AUTHOR'S ORGANIZ ATION 09/01/2021 [facility] [place] DATE CREATED AUTHOR AUTHOR'S ORGANIZ ATION 09/04/2021 [facility] DATE CREATED AUTHOR AUTHOR'S ORGANIZ ATION 03/25/2022 [facility] Source Comments (unrecognize d section and content) In the event this informatio n is protected by the Federal Confidentiality of Alcohol and Drug Abuse Patient Records regulations: The Federal rules restrict any use of the information to criminally investigate or prosecute any alcohol or drug abuse patient.[facility] FOR RECORDS PERTAINING TO PATIENTS WHO ARE [...] BE BASED ON THE PRIMARY CLINICAL RECORDS. [facility] [employer] [facility]. provides no warranty or guarantee of the accuracy or completeness of information in this document.
== END | disposition home or self-care (01) ==
LOC: CVS 07:45
PROVIDERS: PCP Internal Medicine; Referring Provider Internal Medicine; Visit Provider Internal Medicine
DX: I50.9 Heart failure, unspecified (principal)
CPT/HCPCS: 93306; Q9957; A4216; C8929

== ENCOUNTER → 2023-10-18 | Outpatient (CLI) | payer OTHER, SELFPAY ==
[2021-05-26 09:51] VITALS: BMI 36.0
[2023-10-18 12:07] LABS: Absolute Lymphocyte Count 1.74 X10^3/uL (0.83-4.51); Absolute Neutrophil Count 3.2 X10^3/uL (2.0-7.7); Basophil# 0.02 X10^3/uL; Basophil% 0.4 % (0-1); Eosinophils% 1.8 % (0-5); Hemoglobin 13.5 g/dL (13.0-16.5); Lymphocyte # 1.74 X10^3/ul (0.83-4.51); Lymphocyte % 30.9 % (19-41); Mean Corp Hgb Conc 32.9 g/dL (32-36); Mean Corpuscular Hgb 30.1 pg (27.0-32.0); Mean Corpuscular Volume 91.3 fL (80-94); Mean Platelet Vol. 9.4 fl (6.2-12.0); Monocyte# 0.56 X10^3/uL; Monocyte% 9.9 % (0-10); NRBC Flagged by Analyzer 0 % (0-5); Neutrophil % 56.6 % (47-70); Platelet Count 213 K/mm3 (150-450); RBC Distribution Width CV 12.7 % (11.6-14.6); RBC Distribution Width SD 41.7 fl (35.1-43.9); Red Blood Count 4.49 M/mm3 (4.6-6.2); White Blood Count 5.6 K/mm3 (4.4-11.0)
[2023-10-18 12:20] LABS: ALB/GLOB Ratio 1.2 RATIO (0.9-2.4); AST(SGOT) 16 U/L (15-37); Alanine Aminotransfer ALT/SGPT 24 U/L (16-61); Albumin, Serum 3.8 g/dL (3.2-5.0); Alkaline Phosphatase 85 U/L (45-117); Anion Gap 3 (5-15); BUN 13 mg/dL (7-18); BUN/Creat Ratio 15.3 RATIO (10-20); Calcium,Total 8.8 mg/dL (8.5-10.1); Chloride 106 mmol/L (98-107); Cholesterol 135 mg/dL (200); Creatinine, Serum 0.85 mg/dL (0.70-1.30); EST Glomerular Filtration Rate 98 mL/min (>60); Est Glom Filt Rate - Afr Amer 119 mL/min (>60); Globulin 3.1 g/dL (2.2-4.2); Glucose 118 mg/dL (74-106); High Density Lipoprotein 30 mg/dL; Potassium 4.7 mmol/L (3.5-5.1); Protein, Total 6.9 g/dL (6.4-8.2); Sodium Level 137 mmol/L (136-145); Triglycerides 93 mg/dL; Very Low Density Lipoprotein 19 mg/dL (5-40)
[2023-10-18 12:31] LABS: Hemoglobin A1c 5.6 % (3.8-5.6)
== END | disposition home or self-care (01) ==
LOC: BIMLAB 09:38
PROVIDERS: PCP Internal Medicine; Visit Provider Internal Medicine
DX: I10 Essential (primary) hypertension (principal); R73.03 Prediabetes
CPT/HCPCS: 36415; 80053; 80061; 83036; 85025

== ENCOUNTER → 2024-02-12 | Outpatient (CLI) | payer OTHER, SELFPAY ==
[2021-05-26 09:51] VITALS: BMI 36.0
[2024-02-12 12:36] LABS: Hemoglobin A1c 5.6 % (3.8-5.6)
[2024-02-12 12:49] LABS: Anion Gap 5 (5-15); BUN 14 mg/dL (7-18); BUN/Creat Ratio 19.5 RATIO (10-20); Calcium,Total 8.8 mg/dL (8.5-10.1); Chloride 107 mmol/L (98-107); Creatinine, Serum 0.72 mg/dL (0.70-1.30); EST Glomerular Filtration Rate 120 mL/min (>60); Est Glom Filt Rate - Afr Amer 145 mL/min (>60); Glucose 133 mg/dL (74-106); PSA,Total - Annual Screen 1.42 ng/mL (0.00-4.00); Potassium 4.3 mmol/L (3.5-5.1); Sodium Level 137 mmol/L (136-145)
== END | disposition home or self-care (01) ==
LOC: BIMLAB 09:01
PROVIDERS: PCP Internal Medicine; Referring Provider Internal Medicine; Visit Provider Internal Medicine
DX: Z12.5 Encounter for screening for malignant neoplasm of prostate (principal); I10 Essential (primary) hypertension; R73.03 Prediabetes
CPT/HCPCS: 36415; 80048; 83036; 84153; G0103

== ENCOUNTER → 2024-06-03 | Outpatient (CLI) | payer OTHER, SELFPAY ==
[2021-05-26 09:51] VITALS: BMI 36.0
[2024-06-03 13:16] LABS: Hemoglobin A1c 5.7 % (3.8-5.6)
[2024-06-03 13:19] LABS: Anion Gap 7 (5-15); BUN 17 mg/dL (7-18); BUN/Creat Ratio 20.5 RATIO (10-20); Calcium,Total 8.8 mg/dL (8.5-10.1); Chloride 107 mmol/L (98-107); Creatinine, Serum 0.83 mg/dL (0.70-1.30); EST Glomerular Filtration Rate 101 mL/min (>60); Est Glom Filt Rate - Afr Amer 123 mL/min (>60); Glucose 124 mg/dL (74-106); Potassium 4.3 mmol/L (3.5-5.1); Sodium Level 138 mmol/L (136-145)
== END | disposition home or self-care (01) ==
LOC: BIMLAB 08:54
PROVIDERS: PCP Internal Medicine; Referring Provider Internal Medicine; Visit Provider Internal Medicine
DX: I10 Essential (primary) hypertension (principal); R73.03 Prediabetes
CPT/HCPCS: 36415; 80048; 83036